=== PATIENT | female | born 1940 | race Caucasian/White ===

== ENCOUNTER 2016-04-16 18:52 | Inpatient (IN) ==
[2016-04-16] MEDS ORDERED: Acetaminophen 325 MG TABLET PO PRN (20:41)
[2016-04-16] MEDS ORDERED: *HR* HYDROcodone/Acet 5/325 mg TABLET PO PRN (20:41)
[2016-04-16] MEDS ORDERED: *HR* Morphine 2 MG/ML SYRINGE IVP PRN (20:41)
[2016-04-16] MEDS ORDERED: Ondansetron 4 MG/2 ML VIAL IVP PRN (20:41)
[2016-04-16] MEDS ORDERED: Naloxone 0.4 MG/ML INJ IVP PRN (20:41)
[2016-04-16] MEDS ORDERED: D5% in Water 1,000 ML IV PRN (20:42)
[2016-04-16] MEDS ORDERED: Dextrose Gel 15 GM PO PRN ×2 (20:42)
[2016-04-16] MEDS ORDERED: *HR* Dextrose 50 % in Water (Syg) 50 ML SYRINGE IVP PRN (20:42)
[2016-04-16] MEDS ORDERED: Ipratropium/Albuterol Neb 3 ML IH PRN (20:46)
[2016-04-16] MEDS: Insulin LISPRO 300 UNITS/3 ML VIAL SQ SCH (20:56)
[2016-04-16 21:52] LABS: Basophils # 0.1 K/mcL (0.0-0.2); Basophils % 0.9 %; Eosinophils # 0.1 K/mcL (0.0-0.6); Eosinophils % 1.2 %; Hematocrit 40.6 % (35.3-44.9); Hemoglobin 13.2 g/dL (11.5-15.4); Immature Granulocytes % 1.5 % (0-4); Lymphocytes # 1.8 K/mcL (0.6-4.6); Lymphocytes % 17.9 %; Mean Corpuscular HGB Conc 32.5 g/dL (31.6-35.5); Mean Corpuscular Hemoglobin 28.7 pg (28.0-33.3); Mean Corpuscular Volume 88.3 fL (83.0-100.0); Mean Platelet Volume 9.9 fL (9.4-12.4); Monocytes # 0.8 K/mcL (0.0-1.3); Monocytes % 8.6 %; Neutrophils # 6.8 K/mcL (1.6-8.9); Platelet Count 234 K/mcL (140-400); Red Cell Distribution Width 16.6 % (11.5-14.5); Segmented Neutrophils % 69.9 %
--- NOTE | 2016-04-16 21:54 | Internal Med History&Physical ---
Date of Encounter: 04/16/16 Time of Encounter: 21:52 Assessment and Plan (1) Bradycardia Current visit: Yes Status: Acute (2) Diastolic CHF, acute on chronic Current visit: Yes Status: Acute (3) Elevated INR Current visit: No Status: Acute (4) Chronic kidney disease, stage 3 Current visit: Yes Status: Chronic (5) Atrial fibrillation Current visit: Yes Status: Chronic Qualifiers: Atrial fibrillation type: chronic Qualified Code(s): I48.2 - Chronic atrial fibrillation (6) Chronic obstructive pulmonary disease Current visit: Yes Status: Chronic Qualifiers: COPD type: unspecified COPD Qualified Code(s): J44.9 - Chronic obstructive pulmonary disease, unspecified (7) Coronary artery disease Current visit: Yes Status: Chronic Qualifiers: Coronary Disease-Associated Artery/Lesion type: [place] artery [place] vs. transplanted heart: [place] heart Associated angina: without angina Qualified Code(s): I25.10 - Atherosclerotic heart disease of [place] coronary artery without angina pectoris (8) Diabetes mellitus Current visit: Yes Status: Chronic Qualifiers: Diabetes mellitus type: type 2 Diabetes mellitus complication status: with unspecified complications Diabetes mellitus intermediate project manager insulin use: without intermediate project manager use Qualified Code(s): E11.8 - Type 2 diabetes mellitus with unspecified complications (9) Dyslipidemia Current visit: Yes Status: Chronic (10) Hypertension Current visit: Yes Status: Chronic Qualifiers: Hypertension type: essential hypertension Qualified Code(s): I10 - Essential (primary) hypertension (11) Hypothyroidism Current visit: Yes Status: Chronic Qualifiers: Hypothyroidism type: unspecified Qualified Code(s): E03.9 - Hypothyroidism , unspecified (12) Thoracic aortic aneurysm without rupture Current visit: Yes Status: Chronic Internal Medicine - H&P: HPI Chief complaint: Shortness of breath Admitted From: Hospital to Hospital Transfer Plans for Post Hospital Care: Home History of present illness: 75 Y/O F with known A-fib on Coumadin, CKD, COPD, DM, Diastolic CHF Presented to [facility] with complains of shortness of breath. She was found to have bradycardia with HR 30s and anasarca. Per referral center, patient had been started on new medications for A-fib recently, and had been taken off her Lasix. EKG showed Junctional rhythm with RBBB, CXR showed bilateral pleural effusions. Work up revealed BNP 2,134, PT 23.6, INR 3.60, and WBC 10.9. Troponins negative X2. BP was 153/48, O2Sat was 99%, and she was afebrile. She was given atropine with improvement in HR to 50s; she was then transferred here for further management. She is seen at bedside, she endorses she started having bilateral lower extremity swelling since 04/07 when her Lasix was discontinued by her social service liaison. She reports associated bloating , early satiety, orthopnea, she also has been feeling more weak. She went to her PCP who found her bradycardic and referred her to the ER. She denies chest pain, nausea or vomiting, she is chronically incontinent of urine , and has no new symptoms. She received two doses of atropine at [facility] with improvement in her HR from 38 to 50s, and she also received a dose of Lasix. Her presenting BP over there was 133/48. Physical Exam: VSS. HR 65, BP-144/67, O2sat 95% on 2L Not in any form of distress, speaks full sentences HEENT: No JVD Chest: Bilateral basilar crackles, no wheezing, no tachypnea Heart: S1, S2, loud systolic murmur, no gallops Abdomen: Obese, not tender, normal bowel sounds Extremities: Bilateral 2+ pitting pedal edema up to the knees Labs and Imaging as earlier documented Assessment/Plan 1. Bradycardia from possible CCB and BB toxicity, now improved. Keep on telemetry, keep SQ pacer pads on. Hold off BB or CCB unless Afib with RVR. Consult cardio for evaluation fr possible tachy-justice syndrome. Obtain CXR, chemistry, TSH, LFT, CBC. 2. Fluid overload: Possibly from both CHF and CKD 3, obtain ECHO, resume Lasix, strict intake/output monitoring, Daily weight checks. Obtain ECHO 3. Supratherapeutic INR: Hold Coumadin monitor INR CKD 3, DM, COPD not in exacerbation are stable. Resume other home meds, insulin , duonebs prn respectively. Plan of care discussed with patient , verbalizes understanding. Past Med Surg Social Fam HX - Past Medical History Medical history: aortic aneurysm, CHF, COPD, diabetes, GERD, hypertension, renal disease Psychiatric history: no psych history - Past Surgical History Surgical History: angioplasty/stent, coronary bypass (CABG) - Social History Smoking Status: Former smoker Smokeless Tobacco Status: No Alcohol use: none Drug use: none - Family History Mother Living Status: Hx Family Cardiac Disorders: No Hx Family Respiratory Disorders: No Hx Family Cancer: No Hx Family GI Disorders: No Hx Family Endocrine Disorder: No Hx Family Neuromuscular Disorders: No Hx Family Neurologic Disorders: No Hx Family HEENT Disorders: No Hx Family Autoimmune Disorders: No Sister Hx Family Cardiac Disorders: Yes ([place]) Internal Medicine - H&P: Meds Atorvastatin [Lipitor] 40 mg PO HS 05/03/15 [History] Magnesium Oxide [Magnesium] 400 mg PO QAM 05/03/15 [History] Potassium Chloride [K-Tab ER] 10 meq PO QAM 05/03/15 [History] Aspirin 81 mg PO QAM 07/06/15 [History] Carvedilol [Coreg] 25 mg PO BID 07/06/15 [History] Insulin ASPART [Novolog Flexpen] 5 - 15 unit SQ TIDWM 07/06/15 [History] Warfarin [Coumadin] 5 mg PO SUMOTUWEFR 07/06/15 [History] Warfarin [Coumadin] 2.5 mg PO THSA 08/24/15 [History] Ferrous Sulfate 325 mg PO BIDWM #30 tablet 09/01/15 [Rx] Levothyroxine [Levothyroxine Sodium] 150 mcg PO DAILY@0630 10/05/15 [History] Diltiazem CD (24hr) [Cardizem CD] 360 mg PO QAM #90 cap.er.24h 10/10/15 [Rx] Amlodipine [Norvasc] 5 mg PO DAILY 04/16/16 [History] Calcitriol [Rocaltrol] 0.25 mcg PO DAILY 04/16/16 [History] Allergies nitroglycerin Adverse Reaction (Verified 12/09/15 15:44) See Comments pt reports the nitro drip makes her vomit. Pt reports the SL nitro is ok to take All Systems PM: A 10-system review of systems was performed and is negative for pertinent findings except as documented above in the HPI. - Constitutional Constitutional: no chills, no fever(s), no night sweats - EENT Eyes: no change in vision, no discharge, no pain, no photophobia Nose, mouth and throat: no dysphagia, no nasal discharge, no neck pain, no sore throat - Cardiovascular Cardiovascular ROS IM: as per HPI - Respiratory Respiratory: as per HPI - Gastrointestinal Gastrointestinal: as per HPI - Genitourinary Genitourinary: as per HPI - Musculoskeletal Musculoskeletal ROS IM: no numbness, no tingling - Integumentary Integumentary IM: no rash, no unusual bruising - Neurological Neurological ROS: no confusion, no convulsions, no focal weakness, no numbness, no tingling, no tremor(s) - Hematologic/Lymphatic Hematologic/Lymphatic: no easy bruising - Constitutional Vitals: Temp Pulse Resp BP Pulse Ox 97.9 F 65 20 144/67 94 L 04/16/16 20:40 04/16/16 20:40 04/16/16 20:40 04/16/16 20:40 04/16/16 20:40
[2016-04-16] MEDS ORDERED: Furosemide 40 MG/4 ML VIAL IVP ONE (21:58)
[2016-04-16 22:04] LABS: Calcium 9.8 mg/dL (8.6-10.8); Potassium 4.2 mEq/L (3.5-4.5)
[2016-04-16 22:13] LABS: Hemoglobin A1C 7.2 %
[2016-04-16 22:27] LABS: Thyroid Stimulating Hormone 18.399 mcIU/mL (0.350-4.840)
[2016-04-16 23:03] LABS: Bilirubin,Urine Negative (Negative); Blood,Urine Negative (Negative); Clarity,Urine Clear (Clear); Color,Urine Yellow (Yellow); Glucose,Urine (UA) Normal (Normal); Ketones,Urine Negative (Negative); Leukocyte Esterase,Urine Negative (Negative); Nitrite,Urine Negative (Negative); Protein,Urine Negative (Neg-Trace); Specific Gravity,Urine 1.006 (1.010-1.025); Urobilinogen,Urine Normal (Normal)
[2016-04-17 04:39] LABS: Basophils # 0.1 K/mcL (0.0-0.2); Eosinophils # 0.1 K/mcL (0.0-0.6); Eosinophils % 1.5 %; Hematocrit 40.1 % (35.3-44.9); Hemoglobin 13.2 g/dL (11.5-15.4); Immature Granulocytes % 1.4 % (0-4); Lymphocytes # 1.6 K/mcL (0.6-4.6); Lymphocytes % 21.7 %; Mean Corpuscular HGB Conc 32.9 g/dL (31.6-35.5); Mean Corpuscular Hemoglobin 29.1 pg (28.0-33.3); Mean Corpuscular Volume 88.3 fL (83.0-100.0); Mean Platelet Volume 9.9 fL (9.4-12.4); Monocytes # 0.7 K/mcL (0.0-1.3); Monocytes % 9.1 %; Neutrophils # 4.7 K/mcL (1.6-8.9); Platelet Count 202 K/mcL (140-400); Red Blood Count 4.54 M/mcL (3.82-4.97); Red Cell Distribution Width 16.6 % (11.5-14.5); Segmented Neutrophils % 65.3 %
[2016-04-17 04:43] LABS: INR 3.2; Prothrombin Time 35.8 Seconds (9.4-12.1)
[2016-04-17 04:57] LABS: Albumin 3.3 g/dL (3.5-5.0); Albumin/Globulin Ratio 1.1 (1.1-2.2); Bilirubin,Total 0.6 mg/dL (0.2-1.2); Calcium 9.6 mg/dL (8.6-10.8); Globulin 2.9 g/dL (2.4-3.5); Potassium 4.2 mEq/L (3.5-4.5); Total Protein 6.2 g/dL (6.0-8.3)
[2016-04-17] MEDS: Insulin LISPRO 300 UNITS/3 ML VIAL SQ SCH ×7 (07:44→21:05)
[2016-04-17] MEDS: Aspirin 81 MG TAB.CHEW PO SCH (07:44)
[2016-04-17] MEDS: Furosemide 40 MG/4 ML VIAL IVP SCH (07:48)
--- NOTE | 2016-04-17 09:39 | Cardiology Consult Note ---
Date of Encounter: 04/17/16 Time of Encounter: 08:30 Assessment and Plan (1) Bradycardia Current Visit: Yes Status: Acute HR 34 appears to be junctional rhythm at [facility] ED. Patient was asymptomatic at time--denies presyncope/syncopal symptoms. HR has significantly improved with holding AV twila blocking agents--previously on Cardizem 360 mg and Coreg 25 mg BID. Telemetry reviewed since admission: avg HR=64 SR. Min=51 SB. No significant pause. HR 70s SR upon exam. No indication for PPM at this time. TSH 18--defer management to primary care service. (2) Diastolic CHF, acute on chronic Current Visit: Yes Status: Acute Acute on chronic dCHF secondary to discontinuation of diuretics and ONEL on CKD. Nearly 20lb weight gain in the past 10 days. SCr improving with diuresis, not yet at baseline. CXR shows mild congestion. Reports significant symptom improvement since admission; nearly euvolemic upon exam. 24 I&O: -3210 mL, cumulative -4360 mL. Recommend transition to oral dose of lasix upon discharge with close monitoring of renal function as outpatient. Low sodium diet, strict I&O's, and daily weights. (3) Atrial fibrillation Current Visit: Yes Status: Chronic Hx of PAF; previously rate controlled on max doses oral calcium channel chichi and betablocker. Anticoagulated on Coumadin; follows at [facility]. AV twila blocking agents held in light of bradycardia (HR 34) at [facility]. May need to start at lower dose to prevent tachycardia. Continue to monitor for now. Qualifiers: Atrial fibrillation type: paroxysmal Qualified Code(s): I48.0 - Paroxysmal atrial fibrillation (4) Chronic kidney disease, stage 3 Current Visit: Yes Status: Chronic Scr improving, not yet at baseline. Continue to monitor closely. Avoid ACEi/ARB. (5) Coronary artery disease Current Visit: Yes Status: Chronic Hx of CAD s/p 2vCABG. Denies chest pain or discomfort. Asa and statin. May consider re-starting betablocker at decreased dose. EF preserved per TTE September 2015. Negative nuclear stress September 2014. Qualifiers: Coronary Disease-Associated Artery/Lesion type: [place] artery [place] vs. transplanted heart: [place] heart Associated angina: without angina Qualified Code(s): I25.10 - Atherosclerotic heart disease of [place] coronary artery without angina pectoris Discussion w patient/family: The assessment and plan as outlined above was discussed with the patient and/or family members who expressed understanding and agreement. All questions were answered. Thank you for involving us in the care of your patient. Please call with any questions. The patient will be discussed and reviewed with Dr. Acharya; changes to be made accordingly. History of Present Illness Consult date: 04/17/16 Requesting physician: Preston Pace Consult reason: Bradycardia Chief complaint: Shortness of breath, weight gain History of present illness: Ms. Smith is a 75 year old female with PMH significant for CAD s/p 2vCABG in 1993, PAF (coumadin), AAA, DMII, CKD, HTN, COPD, dCHF who presented to [facility] ED with complaints of worsening abdominal/BLE swelling and dyspnea for the past week. She reports her Nephologist (outside hospital) recently stopped a blood pressure pill, metformin, and torsemide due to worsening renal insufficiency; two days after stopping medications, swelling started. She reports close to 20 lb weight gain. Upon arrival to [facility] ED ECG demonstrated a HR of 34--she was then transferred to [facility] for further evaluation. She denies chest pain or discomfort, syncope, palpitations, or headache. Reports stable, unchanged dizziness with abrupt position change. Cardiology consulted today for Bradycardia. Recent testing includes: TTE 10/06/15: EF 55%, mild concentric LVH, mild AR/MR/TR, borderline mild PH. TTE 05/04/15: EF 55%, mild AR, mild-moderately dilated left atrium. Regadenoson nuclear stress September 2014: negative for ischemia or infarct, gated EF >70% Past Med Surg Social Fam HX - Past Medical History Medical history: aortic aneurysm, atrial fibrillation, CHF (chronic, diastolic) , COPD, coronary artery disease, diabetes, GERD, hyperlipidemia, hypertension, renal disease Psychiatric history: no psych history - Past Surgical History Surgical History: angioplasty/stent, coronary bypass (CABG) - Social History Smoking Status: Former smoker Smokeless Tobacco Status: No Alcohol use: none Drug use: none - Family History Mother Living Status: Hx Family Cardiac Disorders: No Hx Family Respiratory Disorders: No Hx Family Cancer: No Hx Family GI Disorders: No Hx Family Endocrine Disorder: No Hx Family Neuromuscular Disorders: No Hx Family Neurologic Disorders: No Hx Family HEENT Disorders: No Hx Family Autoimmune Disorders: No Sister Hx Family Cardiac Disorders: Yes ([place]) Medications and Allergies Atorvastatin [Lipitor] 40 mg PO HS 05/03/15 [History] Magnesium Oxide [Magnesium] 400 mg PO QAM 05/03/15 [History] Potassium Chloride [K-Tab ER] 10 meq PO QAM 05/03/15 [History] Aspirin 81 mg PO QAM 07/06/15 [History] Carvedilol [Coreg] 25 mg PO BID 07/06/15 [History] Insulin ASPART [Novolog Flexpen] 5 - 15 unit SQ TIDWM 07/06/15 [History] Warfarin [Coumadin] 2.5 mg PO DAILY 08/24/15 [History] Levothyroxine [Levothyroxine Sodium] 150 mcg PO DAILY 10/05/15 [History] Diltiazem CD (24hr) [Cardizem CD] 360 mg PO QAM #90 cap.er.24h 10/10/15 [Rx] Amlodipine [Norvasc] 5 mg PO BID 04/16/16 [History] Calcitriol [Rocaltrol] 0.25 mcg PO MOWEFR 04/16/16 [History] Cholecalciferol (D-3) [Vitamin D] 2,000 unit PO DAILY 04/16/16 [History] Ferrous Sulfate [Iron] 325 mg PO BID 04/16/16 [History] Insulin DETEMIR [Levemir Flextouch] 30 unit SQ HS 04/16/16 [History] Allergies nitroglycerin Adverse Reaction (Verified 04/16/16 23:56) Nausea All Systems Review: A 10-system review of systems was performed and is negative for pertinent findings except as documented above in the HPI. - Cardiovascular Cardiovascular: as per HPI Physical Examination Vital Signs, Last 4 Hours Temp Pulse Resp BP Pulse Ox 04/17/16 07:49 77 04/17/16 07:21 98.6 F 69 18 127/61 95 General: Conversant HEENT: Atraumatic, Normocephaly Cardiac: Reg Rate and Rhythm, Normal S1 and S2 Lungs: Normal Breath Sounds Neuro: Alert and responsive Abdomen: Soft (mildly distended) Skin: No rashes noted on visualized skin Musculoskeletal: No Chest Wall Tenderness Extremities: Normal Pulses, Other (mild, trace edema BLE) Other: naik cath--clear yellow urine Results 04/17/16 04:26 04/17/16 04:26 Lab Results 04/16/16 04/16/16 04/16/16 21:36 21:36 21:36 WBC 9.8 Hgb 13.2 Hct 40.6 Plt Count 234 INR APTT Sodium Potassium Chloride Carbon Dioxide BUN Creatinine Glucose Calcium Total Bilirubin AST ALT Alkaline Phosphatase Troponin I 0.02 B-Natriuretic Peptide 1827 H TSH 04/16/16 04/17/16 04/17/16 21:36 04:26 04:26 WBC 7.2 Hgb 13.2 Hct 40.1 Plt Count 202 INR 3.2 APTT 44.0 H Sodium 140 Potassium 4.2 Chloride 104 Carbon Dioxide 25 BUN 44 H Creatinine 1.87 H Glucose 140 H Calcium 9.8 Total Bilirubin AST ALT Alkaline Phosphatase Troponin I B-Natriuretic Peptide TSH 18.399 H 04/17/16 04:26 WBC Hgb Hct Plt Count INR APTT Sodium 141 Potassium 4.2 Chloride 103 Carbon Dioxide 29 BUN 41 H Creatinine 1.70 H Glucose 99 Calcium 9.6 Total Bilirubin 0.6 AST 55 H ALT 89 H Alkaline Phosphatase 124 Troponin I B-Natriuretic Peptide TSH Active Medications Acetaminophen (Tylenol) 650 mg PO Q6HR PRN PRN Reason: Mild Pain (1-3) Stop: 10/16/16 20:42 Acetaminophen/Hydrocodone Bitart ([employer] 5-325 Mg) 1 tab PO Q4HR PRN PRN Reason: Moderate Pain (4-6) Stop: 10/16/16 20:42 Albuterol/Ipratropium (Duoneb) 3 ml IH [id number] PRN; Protocol PRN Reason: Shortness Of Breath/Wheezing Stop: 10/16/16 20:47 Aspirin (Aspirin) 81 mg PO QAM [facility] Stop: 10/17/16 09:01 Last Admin: 04/17/16 07:44 Dose: 81 mg Atorvastatin Calcium (Lipitor) 40 mg PO HS [facility] Stop: 10/17/16 21:01 Calcitriol (Rocaltrol) 0.25 mcg PO DAILY [facility] Stop: 10/17/16 09:01 Last Admin: 04/17/16 07:44 Dose: 0.25 mcg Dextrose/Water (Dextrose 50% (Syg)) 25 ml IVP AD PRN PRN Reason: Hypoglycemia Stop: 10/16/16 20:43 Ferrous Sulfate (Ferrous Sulfate) 325 mg PO BIDWM [facility] Stop: 10/17/16 08:01 Last Admin: 04/17/16 07:44 Dose: 325 mg Furosemide (Lasix) 40 mg IVP DAILY [facility] Stop: 10/17/16 09:01 Last Admin: 04/17/16 07:48 Dose: 40 mg Dextrose (Dextrose 5%) 1,000 mls @ 100 mls/hr IV CONT PRN PRN Reason: HYPOGLYCEMIA Stop: 10/16/16 20:43 Insulin Detemir (Levemir) 12 unit 0.15 unit/kg (12 unit) SQ HS [facility] Stop: 10/17/16 21:01 Insulin Human Lispro (Humalog) 0 units SQ HS MARCELO PRN Reason: Protocol Stop: 10/16/16 21:01 Last Admin: 04/16/16 20:56 Dose: Not Given Insulin Human Lispro (Humalog) 0 units SQ TIDAC MARCELO PRN Reason: Protocol Stop: 10/17/16 07:31 Last Admin: 04/17/16 07:44 Dose: Not Given Insulin Human Lispro (Humalog) 4 units 0.05 units/kg (4 units) SQ TIDWM [facility] Stop: 10/17/16 08:01 Last Admin: 04/17/16 07:45 Dose: Not Given Levothyroxine Sodium (Synthroid) 150 mcg PO DAILY@0630 [facility] Stop: 10/17/16 06:31 Last Admin: 04/17/16 05:59 Dose: 150 mcg Morphine Sulfate (Morphine Sulfate) 2 mg IVP Q4HR PRN PRN Reason: Severe Pain (7-10) Stop: 10/16/16 20:42 Naloxone HCl (Narcan) 0.4 mg IVP Q2MIN PRN PRN Reason: Opioid Reversal Stop: 10/16/16 20:42 Ondansetron HCl (Zofran) 4 mg IVP Q8HR PRN PRN Reason: Nausea And Vomiting Stop: 10/16/16 20:42 Potassium Chloride (Potassium Chloride) 10 meq PO QAM [facility] Stop: 10/17/16 09:01 Last Admin: 04/17/16 07:44 Dose: 10 meq Impressions Chest X-Ray 04/16/16 20:39 IMPRESSION: Mild pulmonary edema with no appreciable pleural effusion. D/ / Selvin Arteaga MD / Selvin Arteaga MD Interpreting Provider: Selvin Arteaga MD - Imaging and Cardiology Stress Test: report reviewed Echo: report reviewed Other Results: Telemetry: avg HR=64 SR. Min-51 SB. No significant pause. - EKG Interpretation EKG results cardiology: personally reviewed Consult Discharge Plan - Plan Referrals: Blaire Olivo CNP [Primary Care Provider] -
--- NOTE | 2016-04-17 12:40 | ECHO - Doppler Report ---
Echocardiogram Name: Alejandra Pazetter Date of Study: 04/17/2016 Date: 1940 Ht: 60.0 in Medical Record#: [id number] Age: 75 Wt: 180.0 lb Gender: Female BSA: 1.78 Order #: [id number] [facility] Room #: Reading Physician: Brannon Acharya DO, [place], [place] Digital [employer] Specialist: Dajuan Hardwick RDCS Ordering Physician: Preston Pace MD Primary Physician: None Indications: Shortness of breath, Anasarca Impressions: LVEF 60-65%. Normal LV chamber size and function. Mild concentric left ventricular hypertrophy. Moderate left ventricular diastolic dysfunction. Normal right ventricular structure and function. Moderately dilated left atrium. Mild-moderate aortic stenosis. Mean gradient 20 mmHg. No evidence of pulmonary hypertension. The aortic root is mildly dilated. Left Ventricular Wall Motion: Rest Echo Findings All wall segments showed normal motion. Findings: Study Quality * Technically adequate exam. ECG Findings * Normal sinus rhythm. Left Ventricle * LVEF 60-65%. * Normal LV chamber size and function. * Mild concentric left ventricular hypertrophy. * Moderate left ventricular diastolic dysfunction. Right Ventricle * Normal right ventricular structure and function. Left Atrium * Moderately dilated left atrium. Right Atrium * Mildly dilated right atrium. Interatrial Septum * No evidence of PFO by color Doppler. Aortic Valve * Aortic valve not well visualized. * Moderately calcified aortic valve leaflets. * Mild aortic regurgitation. * Mild-moderate aortic stenosis. Mean gradient 20 mmHg. Mitral Valve * Mildly thickened mitral valve leaflets. * Mild mitral annular calcification * Trace mitral regurgitation. * No mitral stenosis. Tricuspid Valve * Normal tricuspid valve structure and function. * Trace tricuspid regurgitation. * No evidence of pulmonary hypertension. Pulmonic Valve * Normal pulmonic valve structure and function. * No pulmonic regurgitation. Aorta * The aortic root is mildly dilated. Pericardium * The pericardium appears normal. IVC * Normal IVC dimensions and inspiratory collapse. Pulmonary Artery * Normal visualized portions of the main pulmonary artery. History Hypertension Diabetes Hypercholesteremia Family History of CAD History of CAD/PTCA Myocardial Infarction Coronary Artery Bypass Graft 09/26/15 a Previous Echo was performed. Measurements: BP: 125/ 57 2D Normal Values RVIDd: 3.30 cm <2.7 cm IVSd: 1.30 cm 0.6 - 1.0 cm LVIDd: 4.00 cm 3.7 - 5.6 cm LVPWd: 1.30 cm 0.6 - 1.1 cm LVIDs: 2.60 cm 1.5 - 3.6 cm AO: 4.08 cm < 4.0 cm LA: 3.40 cm 2.0 - 4.0cm %FS: 35.00 cm >25 % LVOT Diam: 2.00 cm LA volume: 73 Mitral Valve Peak Velocity 1.37 m/sec Mean Velocity:.75 m/sec Peak Grad:8.00 mmHg Mean Grad:3.00 mmHg Valve Area:3.20 cm2 Peak E:1.38 m/sec Peak A:.99 m/sec E/A Ratio:1.4 Peak E' Lat Damon:8.58 cm/s Peak E' Med Damon:4.39 cm/s E/E' Lat Ratio:16.1 E/E' Med Ratio:31.4 LVOT Peak Damon:1.44 m/sec Mean Damon:1.05 m/sec Peak Grad:8.00 mmHg Mean Grad:5.00 mmHg Aortic Valve Peak Damon:2.97 m/sec Mean Damon:2.09 m/sec Peak Grad:35.00 mmHg Mean Grad:20.00 mmHg Valve Area:1.60 cm2 AI pressure Half-time: 443.00 msec Tricuspid Valve TV Regurg Peak Grad: 9.00mmHg TV Regurg Peak Daomn: 1.51m/sec Updated by Brannon Acharya DO, [place], [place] on 04/17/2016 12:35:30 PM electronically signed on 04/17/2016 12:35:45 PM with status of Final Wall Motion Brown: 1=Normal, 2=Hypokinesis, 3=Akinesis, 4=Dyskinesis, 5=Aneurysmal, 6=Hyperkinetic, X=Not Visualized (Blank)=Missing
--- NOTE | 2016-04-17 15:08 | Internal Med Progress Note ---
Date of Encounter: 04/17/16 Time of Encounter: 15:08 - Assessment and plan (1) Bradycardia Current Visit: Yes Status: Acute Assessment and plan: Improved after beta chichi and calcium channel blockers have been stopped. Cardiology consulted. At this time recommend monitoring. Continue telemetry. (2) Diastolic CHF, acute on chronic Current Visit: Yes Status: Acute Assessment and plan: Improved. Continue Lasix. (3) Atrial fibrillation Current Visit: Yes Status: Chronic Assessment and plan: Diet controlled. Currently rate controlled and medications have been held due to bradycardia. Continue telemetry monitoring. On Coumadin for anticoagulation. INR supratherapeutic at 3.2. Qualifiers: Atrial fibrillation type: paroxysmal Qualified Code(s): I48.0 - Paroxysmal atrial fibrillation (4) Chronic kidney disease, stage 3 Current Visit: Yes Status: Chronic Assessment and plan: At baseline. We will continue to monitor renal function especially as patient is receiving Lasix intravenously. (5) Chronic obstructive pulmonary disease Current Visit: Yes Status: Chronic Assessment and plan: Not in acute exacerbation Qualifiers: COPD type: unspecified COPD Qualified Code(s): J44.9 - Chronic obstructive pulmonary disease, unspecified (6) Diabetes mellitus Current Visit: Yes Status: Chronic Assessment and plan: Well-controlled. 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 Qualifiers: Hypertension type: essential hypertension Qualified Code(s): I10 - Essential (primary) hypertension (8) Hypothyroidism Current Visit: Yes Status: Chronic Assessment and plan: Uncontrolled. TSH 18. Could be contributing to bradycardia. Will increase dosage of levothyroxine to 175 g by mouth daily. Qualifiers: Hypothyroidism type: unspecified Qualified Code(s): E03.9 - Hypothyroidism , unspecified - Subjective Interval history: Patient is feeling better today. Denies any dizziness or lightheadedness. No chest pain. No shortness of breath. No nausea or vomiting. - Constitutional Vitals: Temp Pulse Resp BP Pulse Ox 98.8 F 70 18 117/69 93 L 04/17/16 11:23 04/17/16 11:23 04/17/16 11:23 04/17/16 11:23 04/17/16 11:23 General appearance: Present: cooperative, mild distress, A&O X 3, answers questions appropriately - Respiratory Respiratory exam: Present: CTAB. Absent: accessory muscle use, rales, rhonchi, wheezes - Cardiovascular Cardiovascular exam: Present: RRR, +S1, +S2. Absent: diastolic murmur, gallop, rubs, systolic murmur - GI/Abdominal GI/Abdominal exam: Present: normal bowel sounds, soft, no peritoneal signs. Absent: distended, tenderness - Extremities Exam Extremities exam: Present: warm, radial pulses palpable and symetrical. Absent : calf tenderness, cyanotic, pedal edema - Neurological Exam Neurological exam: Present: oriented X3, no focal deficits. Absent: facial droop, speech deficit Internal Medicine: Result - Labs CBC & Chem 7: 04/17/16 04:26 04/17/16 04:26 Labs: Short CBC 04/16/16 04/17/16 Range/Units 21:36 04:26 WBC 9.8 7.2 (4.3-11.1) K/mcL Hgb 13.2 13.2 (11.5-15.4) g/dL Hct 40.6 40.1 (35.3-44.9) % Plt Count 234 202 (140-400) K/mcL Neutrophils # 6.8 4.7 (1.6-8.9) K/mcL BMP 04/16/16 04/17/16 21:36 04:26 Sodium 140 141 Potassium 4.2 4.2 Chloride 104 103 Carbon Dioxide 25 29 BUN 44 H 41 H Creatinine 1.87 H 1.70 H Glucose 140 H 99 Calcium 9.8 9.6 Cardiac Enzymes 04/16/16 Range/Units 21:36 Troponin I 0.02 (0-0.03) ng/mL Liver Function 04/17/16 Range/Units 04:26 Total Bilirubin 0.6 (0.2-1.2) mg/dL AST 55 H (5-34) Units/L ALT 89 H (0-55) Units/L Alkaline Phosphatase 124 (38-126) Units/L Albumin 3.3 L (3.5-5.0) g/dL Urine 04/16/16 Range/Units 22:50 Urine Color Yellow (Yellow) Urine Clarity Clear (Clear) Urine pH 6.0 (5.0-8.0) pH Units Ur Specific [place] 1.006 L (1.010-1.025) Urine Protein Negative (Neg-Trace) mg/dL Urine Glucose (UA) Normal (Normal) mg/dL - ABG Interpretation ABG results: PT/INR, D-dimer PT 35.8 Seconds (9.4-12.1) H 04/17/16 04:26 - Impressions Impressions Chest X-Ray 04/16/16 20:39 IMPRESSION: Mild pulmonary edema with no appreciable pleural effusion. D/ / Selvin Arteaga MD / Selvin Arteaga MD Interpreting Provider: Selvin Arteaga MD Consult Discharge Plan - Plan Referrals: Blaire Olivo, [facility] [employer] [facility] [Primary Care Provider] - - Attending Attestation This document has been at least partially created by Vigo recognition technology by Dr. Escobar. Errors in grammar, wording or other phrases may exist. If errors are found after the documentation is signed, they will be addressed individually in the addendum section of this document when appropriate. Medical Decision Making - MDM Narrative Medical decision making narrative: Moderate risk for complications - Lab Data Lab results reviewed: Yes I reviewed the patient's lab results. Result diagrams: 04/17/16 04:26 04/17/16 04:26 Lab Results 04/16/16 04/16/16 04/16/16 Range/Units 20:43 21:36 21:36 WBC 9.8 (4.3-11.1) K/mcL RBC 4.60 (3.82-4.97) M/mcL Hgb 13.2 (11.5-15.4) g/dL Hct 40.6 (35.3-44.9) % MCV 88.3 (83.0-100.0) fL MCH 28.7 (28.0-33.3) pg MCHC 32.5 (31.6-35.5) g/dL RDW 16.6 H (11.5-14.5) % Plt Count 234 (140-400) K/mcL MPV 9.9 (9.4-12.4) fL Immature Gran % 1.5 (0-4) % Seg Neutrophils % 69.9 % Lymphocytes % 17.9 % Monocytes % 8.6 % Eosinophils % 1.2 % Basophils % 0.9 % Neutrophils # 6.8 (1.6-8.9) K/mcL Lymphocytes # 1.8 (0.6-4.6) K/mcL Monocytes # 0.8 (0.0-1.3) K/mcL Eosinophils # 0.1 (0.0-0.6) K/mcL Basophils # 0.1 (0.0-0.2) K/mcL PT (9.4-12.1) Seconds INR APTT (26.0-36.0) Seconds Sodium (136-145) mEq/L Potassium (3.5-4.5) mEq/L Chloride (98-109) mEq/L Carbon Dioxide (19-29) mEq/L BUN (7-20) mg/dL Creatinine (0.57-1.11) mg/dL Est GFR ( Amer) (> 60) Est GFR (Non-Af Amer) (> 60) BUN/Creatinine Ratio (6-26) Glucose (70-99) mg/dL POC Glucose 168 H (58-89) Est Mean Plasma Glucose mg/dl Hemoglobin A1c ( - 5.6) % Calculated Osmolality (280-300) Calcium (8.6-10.8) mg/dL Total Bilirubin (0.2-1.2) mg/dL AST (5-34) Units/L ALT (0-55) Units/L Alkaline Phosphatase (38-126) Units/L Troponin I 0.02 (0-0.03) ng/mL B-Natriuretic Peptide (0-100) pg/mL Serum Total Protein (6.0-8.3) g/dL Albumin (3.5-5.0) g/dL Globulin (2.4-3.5) g/dL Albumin/Globulin Ratio (1.1-2.2) TSH (0.350-4.840) mcIU/mL Free T4 (0.70-1.48) ng/dl Urine Color (Yellow) Urine Clarity (Clear) Urine pH (5.0-8.0) pH Units Ur Specific [place] (1.010-1.025) Urine Protein (Neg-Trace) mg/dL Urine Glucose (UA) (Normal) mg/dL Urine Ketones (Negative) mg/dL Urine Blood (Negative) Urine Nitrite (Negative) Urine Bilirubin (Negative) Urine Urobilinogen (Normal) mg/dL Ur Leukocyte Esterase (Negative) 04/16/16 04/16/16 04/16/16 Range/Units 21:36 21:36 21:36 WBC (4.3-11.1) K/mcL RBC (3.82-4.97) M/mcL Hgb (11.5-15.4) g/dL Hct (35.3-44.9) % MCV (83.0-100.0) fL MCH (28.0-33.3) pg MCHC (31.6-35.5) g/dL RDW (11.5-14.5) % Plt Count (140-400) K/mcL MPV (9.4-12.4) fL Immature Gran % (0-4) % Seg Neutrophils % % Lymphocytes % % Monocytes % % Eosinophils % % Basophils % % Neutrophils # (1.6-8.9) K/mcL Lymphocytes # (0.6-4.6) K/mcL Monocytes # (0.0-1.3) K/mcL Eosinophils # (0.0-0.6) K/mcL Basophils # (0.0-0.2) K/mcL PT (9.4-12.1) Seconds INR APTT (26.0-36.0) Seconds Sodium 140 (136-145) mEq/L Potassium 4.2 (3.5-4.5) mEq/L Chloride 104 (98-109) mEq/L Carbon Dioxide 25 (19-29) mEq/L BUN 44 H (7-20) mg/dL Creatinine 1.87 H (0.57-1.11) mg/dL Est GFR ( Amer) 32 L (> 60) Est GFR (Non-Af Amer) 26 L (> 60) BUN/Creatinine Ratio 24 (6-26) Glucose 140 H (70-99) mg/dL POC Glucose (58-89) Est Mean Plasma Glucose 160 mg/dl Hemoglobin A1c 7.2 H ( - 5.6) % Calculated Osmolality 303 H (280-300) Calcium 9.8 (8.6-10.8) mg/dL Total Bilirubin (0.2-1.2) mg/dL AST (5-34) Units/L ALT (0-55) Units/L Alkaline Phosphatase (38-126) Units/L Troponin I (0-0.03) ng/mL B-Natriuretic Peptide 1827 H (0-100) pg/mL Serum Total Protein (6.0-8.3) g/dL Albumin (3.5-5.0) g/dL Globulin (2.4-3.5) g/dL Albumin/Globulin Ratio (1.1-2.2) TSH 18.399 H (0.350-4.840) mcIU/mL Free T4 (0.70-1.48) ng/dl Urine Color (Yellow) Urine Clarity (Clear) Urine pH (5.0-8.0) pH Units Ur Specific [place] (1.010-1.025) Urine Protein (Neg-Trace) mg/dL Urine Glucose (UA) (Normal) mg/dL Urine Ketones (Negative) mg/dL Urine Blood (Negative) Urine Nitrite (Negative) Urine Bilirubin (Negative) Urine Urobilinogen (Normal) mg/dL Ur Leukocyte Esterase (Negative) 04/16/16 04/17/16 04/17/16 Range/Units 22:50 04:26 04:26 WBC 7.2 (4.3-11.1) K/mcL RBC 4.54 (3.82-4.97) M/mcL Hgb 13.2 (11.5-15.4) g/dL Hct 40.1 (35.3-44.9) % MCV 88.3 (83.0-100.0) fL MCH 29.1 (28.0-33.3) pg MCHC 32.9 (31.6-35.5) g/dL RDW 16.6 H (11.5-14.5) % Plt Count 202 (140-400) K/mcL MPV 9.9 (9.4-12.4) fL Immature Gran % 1.4 (0-4) % Seg Neutrophils % 65.3 % Lymphocytes % 21.7 % Monocytes % 9.1 % Eosinophils % 1.5 % Basophils % 1.0 % Neutrophils # 4.7 (1.6-8.9) K/mcL Lymphocytes # 1.6 (0.6-4.6) K/mcL Monocytes # 0.7 (0.0-1.3) K/mcL Eosinophils # 0.1 (0.0-0.6) K/mcL Basophils # 0.1 (0.0-0.2) K/mcL PT 35.8 H (9.4-12.1) Seconds INR 3.2 APTT 44.0 H (26.0-36.0) Seconds Sodium (136-145) mEq/L Potassium (3.5-4.5) mEq/L Chloride (98-109) mEq/L Carbon Dioxide (19-29) mEq/L BUN (7-20) mg/dL Creatinine (0.57-1.11) mg/dL Est GFR ( Amer) (> 60) Est GFR (Non-Af Amer) (> 60) BUN/Creatinine Ratio (6-26) Glucose (70-99) mg/dL POC Glucose (58-89) Est Mean Plasma Glucose mg/dl Hemoglobin A1c ( - 5.6) % Calculated Osmolality (280-300) Calcium (8.6-10.8) mg/dL Total Bilirubin (0.2-1.2) mg/dL AST (5-34) Units/L ALT (0-55) Units/L Alkaline Phosphatase (38-126) Units/L Troponin I (0-0.03) ng/mL B-Natriuretic Peptide (0-100) pg/mL Serum Total Protein (6.0-8.3) g/dL Albumin (3.5-5.0) g/dL Globulin (2.4-3.5) g/dL Albumin/Globulin Ratio (1.1-2.2) TSH (0.350-4.840) mcIU/mL Free T4 (0.70-1.48) ng/dl Urine Color Yellow (Yellow) Urine Clarity Clear (Clear) Urine pH 6.0 (5.0-8.0) pH Units Ur Specific [place] 1.006 L (1.010-1.025) Urine Protein Negative (Neg-Trace) mg/dL Urine Glucose (UA) Normal (Normal) mg/dL Urine Ketones Negative (Negative) mg/dL Urine Blood Negative (Negative) Urine Nitrite Negative (Negative) Urine Bilirubin Negative (Negative) Urine Urobilinogen Normal (Normal) mg/dL Ur Leukocyte Esterase Negative (Negative) 04/17/16 Range/Units 04:26 WBC (4.3-11.1) K/mcL RBC (3.82-4.97) M/mcL Hgb (11.5-15.4) g/dL Hct (35.3-44.9) % MCV (83.0-100.0) fL MCH (28.0-33.3) pg MCHC (31.6-35.5) g/dL RDW (11.5-14.5) % Plt Count (140-400) K/mcL MPV (9.4-12.4) fL Immature Gran % (0-4) % Seg Neutrophils % % Lymphocytes % % Monocytes % % Eosinophils % % Basophils % % Neutrophils # (1.6-8.9) K/mcL Lymphocytes # (0.6-4.6) K/mcL Monocytes # (0.0-1.3) K/mcL Eosinophils # (0.0-0.6) K/mcL Basophils # (0.0-0.2) K/mcL PT (9.4-12.1) Seconds INR APTT (26.0-36.0) Seconds Sodium 141 (136-145) mEq/L Potassium 4.2 (3.5-4.5) mEq/L Chloride 103 (98-109) mEq/L Carbon Dioxide 29 (19-29) mEq/L BUN 41 H (7-20) mg/dL Creatinine 1.70 H (0.57-1.11) mg/dL Est GFR ( Amer) 36 L (> 60) Est GFR (Non-Af Amer) 29 L (> 60) BUN/Creatinine Ratio 24 (6-26) Glucose 99 (70-99) mg/dL POC Glucose (58-89) Est Mean Plasma Glucose mg/dl Hemoglobin A1c ( - 5.6) % Calculated Osmolality 302 H (280-300) Calcium 9.6 (8.6-10.8) mg/dL Total Bilirubin 0.6 (0.2-1.2) mg/dL AST 55 H (5-34) Units/L ALT 89 H (0-55) Units/L Alkaline Phosphatase 124 (38-126) Units/L Troponin I (0-0.03) ng/mL B-Natriuretic Peptide (0-100) pg/mL Serum Total Protein 6.2 (6.0-8.3) g/dL Albumin 3.3 L (3.5-5.0) g/dL Globulin 2.9 (2.4-3.5) g/dL Albumin/Globulin Ratio 1.1 (1.1-2.2) TSH (0.350-4.840) mcIU/mL Free T4 1.05 (0.70-1.48) ng/dl Urine Color (Yellow) Urine Clarity (Clear) Urine pH (5.0-8.0) pH Units Ur Specific [place] (1.010-1.025) Urine Protein (Neg-Trace) mg/dL Urine Glucose (UA) (Normal) mg/dL Urine Ketones (Negative) mg/dL Urine Blood (Negative) Urine Nitrite (Negative) Urine Bilirubin (Negative) Urine Urobilinogen (Normal) mg/dL Ur Leukocyte Esterase (Negative)
[2016-04-17] MEDS ORDERED: Warfarin perPT PO PRN (18:00)
[2016-04-17] MEDS: Insulin DETEMIR 100 UNIT/ML X5UNITS SQ SCH (21:09)
[2016-04-18] MEDS ORDERED: 0.9 % Sodium Chloride 500 ML ONE (03:20)
[2016-04-18 04:38] LABS: INR 1.8; Prothrombin Time 19.6 Seconds (9.4-12.1)
[2016-04-18 05:00] LABS: Calcium 9.1 mg/dL (8.6-10.8); Magnesium 2.3 mg/dL (1.6-2.6); Potassium 3.9 mEq/L (3.5-4.5)
[2016-04-18] MEDS: Insulin LISPRO 300 UNITS/3 ML VIAL SQ SCH ×7 (08:53→20:23)
--- NOTE | 2016-04-18 08:53 | Cardiology Progress Note ---
Date of Encounter: 04/18/16 Time of Encounter: 07:30 Assessment and Plan (1) Atrial fibrillation Current Visit: Yes Status: Chronic Hx of PAF; previously rate controlled on max doses oral calcium channel chichi and betablocker. Anticoagulated on Coumadin; follows at [facility]. Afib RVR secondary to holding AV twila blocking agents--Cardizem IV gtt started , currently at 5 mg/hr--increase to keep HR less than 100. 12 hour tele: avg KR=498, HR 100's-140's upon exam. Ideally rate control with either betablocker OR calcium channel chichi. We will continue to follow and adjust medications appropriately. Recommend resuming Coumadin today. Qualifiers: Atrial fibrillation type: paroxysmal Qualified Code(s): I48.0 - Paroxysmal atrial fibrillation (2) Bradycardia Current Visit: Yes Status: Acute HR 34 appears to be junctional rhythm at [facility] ED. Patient was asymptomatic at time--denies presyncope/syncopal symptoms. HR has significantly improved with holding AV twila blocking agents--previously on Cardizem 360 mg and Coreg 25 mg BID. Telemetry reviewed since admission: avg HR=64 SR. Min=51 SB. No significant pause. HR 70s SR upon exam. No indication for PPM at this time. TSH 18--defer management to primary care service. (3) Diastolic CHF, acute on chronic Current Visit: Yes Status: Acute Acute on chronic dCHF secondary to discontinuation of diuretics and ONEL on CKD. Nearly 20lb weight gain in the past 10 days. TTE: EF 60-65%, mild to moderate , moderate LVDD. SCr improving with diuresis, now at baseline. CXR shows mild congestion. Reports significant symptom improvement since admission; nearly euvolemic upon exam. 24 I&O: -5400 mL, cumulative -6605 mL. Recommend transition to oral dose of lasix upon discharge with close monitoring of renal function as outpatient. Low sodium diet, strict I&O's, and daily weights. (4) Chronic kidney disease, stage 3 Current Visit: Yes Status: Chronic Scr improved Continue to monitor closely. Avoid ACEi/ARB. (5) Coronary artery disease Current Visit: Yes Status: Chronic Hx of CAD s/p 2vCABG. Denies chest pain or discomfort. Asa and statin. May consider re-starting betablocker at decreased dose. EF preserved per TTE September 2015. Negative nuclear stress September 2014. Qualifiers: Coronary Disease-Associated Artery/Lesion type: [place] artery [place] vs. transplanted heart: inupiat heart Associated angina: without angina Qualified Code(s): I25.10 - Atherosclerotic heart disease of in[place] coronary artery without angina pectoris Discussion w patient/family: The assessment and plan as outlined above was discussed with the patient and/or family members who expressed understanding and agreement. All questions were answered. Thank you for involving us in the care of your patient. Please call with any questions. The patient will be discussed and reviewed with Dr. Acharya; changes to be made accordingly. Subjective Principal diagnosis: Bradycardia, dCHF Interval history: Seen and examined. Edema/abdominal distention improved. Reports palpitations--now in Afib with RVR. Objective Vital Signs, Last 4 Hours Temp Pulse Resp BP Pulse Ox 04/18/16 07:17 98.3 F 92 18 142/74 96 04/18/16 06:00 111 92/61 04/18/16 05:00 95 95/75 General: Conversant HEENT: Atraumatic Cardiac: Other (irregularly irregular, systolic 2/6 murmur) Lungs: Normal Breath Sounds Neuro: Alert and responsive Abdomen: Soft Skin: No rashes noted on visualized skin Musculoskeletal: No Chest Wall Tenderness Extremities: Normal Pulses, Other (trace BLE edema) Results 04/17/16 04:26 04/18/16 04:10 Lab Results 04/17/16 04/18/16 04/18/16 04:26 04:10 04:10 INR 1.8 Sodium 141 143 Potassium 4.2 3.9 Chloride 103 104 Carbon Dioxide 29 27 BUN 41 H 35 H Creatinine 1.70 H 1.53 H Glucose 99 103 H Calcium 9.6 9.1 Magnesium 2.3 Total Bilirubin 0.6 AST 55 H ALT 89 H Alkaline Phosphatase 124 - Imaging and Cardiology Other Results: Telemetry reviewed. Consult Discharge Plan - Plan Referrals: Blaire Olivo CNP [Primary Care Provider] -
[2016-04-18] MEDS: Furosemide 40 MG/4 ML VIAL IVP SCH (08:55)
[2016-04-18] MEDS: Aspirin 81 MG TAB.CHEW PO SCH (08:55)
--- NOTE | 2016-04-18 10:11 | Event Note ---
Date of Encounter: 04/18/16 Time of Encounter: 10:04 Patient seen and examined independently. Case discussed with nurse practitioner. Agree with findings, impressions, and plan as outlined in Anderson Worrell 's note. Impressions: 1. Bradycardia noted at outside facility. Heart rate improved with holding negative chronotropic agents. 2. Paroxysmal atrial fibrillation. Yesterday, she had converted to sinus rhythm. Overnight, return to AF with RVR. 3. Diastolic heart failure, now appears to be euvolemic. 4. Chronic Coumadin therapy. 5. Acute kidney injury, improving with diuretic therapy. 6. CAD, prior CABG. Recommendations: 1. Cardizem drip has been resumed. AF with RVR continues. Titrate Cardizem drip PRN. Monitor heart rate. 2. Continue Coumadin, goal INR 2-3. 3. Patient -6.6 L. She appears to be near euvolemic on examination. Continue IV diuresis for now, but should be able to change to PO lasix tomorrow. Cr near baseline. 4. Continue aspirin, statin therapy for CAD. Thanks, Brannon Acharya DO, FACC
--- NOTE | 2016-04-18 12:19 | Internal Med Progress Note ---
Date of Encounter: 04/18/16 Time of Encounter: 10:00 - Assessment and plan (1) Atrial fibrillation Current Visit: Yes Status: Chronic Assessment and plan: With rapid ventricular response. On Cardizem drip intravenously. Titrate to control her heart rate to less than 100. Platelets control, will start patient back on beta chichi/ calcium channel chichi per cardiology recommendations. Qualifiers: Atrial fibrillation type: paroxysmal Qualified Code(s): I48.0 - Paroxysmal atrial fibrillation (2) Bradycardia Current Visit: Yes Status: Resolved Assessment and plan: Since resolved. Patient currently in A. fib with RVR (3) Diastolic CHF, acute on chronic Current Visit: Yes Status: Acute Assessment and plan: Improving. Continue Lasix. (4) Chronic kidney disease, stage 3 Current Visit: No Status: Chronic Assessment and plan: Stable (5) Chronic obstructive pulmonary disease Current Visit: No Status: Chronic Assessment and plan: No acute exacerbation Qualifiers: COPD type: unspecified COPD Qualified Code(s): J44.9 - Chronic obstructive pulmonary disease, unspecified (6) Diabetes mellitus Current Visit: Yes Status: Chronic Assessment and plan: Well-controlled Qualifiers: Diabetes mellitus type: type 2 Diabetes mellitus complication status: with unspecified complications Diabetes mellitus long term care social worker insulin use: without long term care social worker use Qualified Code(s): E11.8 - Type 2 diabetes mellitus with unspecified complications (7) Hypertension Current Visit: Yes Status: Chronic Assessment and plan: Well-controlled Qualifiers: Hypertension type: essential hypertension Qualified Code(s): I10 - Essential (primary) hypertension (8) Hypothyroidism Current Visit: Yes Status: Chronic Assessment and plan: Increased levothyroxine to 175 g this morning. Recommend rechecking TSH and free T4 in 3 weeks Qualifiers: Hypothyroidism type: unspecified Qualified Code(s): E03.9 - Hypothyroidism , unspecified - Subjective Interval history: Patient went into A. fib with RVR overnight. She has been started on Cardizem drip. Denies any chest pain or palpitations right now but patient was having sweating and did not feel good last night when her arrhythmia started again. No shortness of breath. No cough or sputum production. - Constitutional Vitals: Temp Pulse Resp BP Pulse Ox 98.4 F 84 18 133/74 94 L 04/18/16 11:11 04/18/16 11:11 04/18/16 11:11 04/18/16 11:11 04/18/16 11:11 General appearance: Present: cooperative, mild distress, A&O X 3, answers questions appropriately - Eye Eye exam: Present: conjuntiva pink, sclera anicteric - Respiratory Respiratory exam: Present: CTAB. Absent: accessory muscle use, rales, rhonchi, wheezes - Cardiovascular Cardiovascular exam: Present: irregular rhythm, +S1, +S2, tachycardia. Absent: diastolic murmur, gallop, rubs, systolic murmur - GI/Abdominal GI/Abdominal exam: Present: normal bowel sounds, soft, no peritoneal signs. Absent: distended, tenderness - Extremities Exam Extremities exam: Present: warm, radial pulses palpable and symetrical. Absent : calf tenderness, cyanotic, pedal edema - Neurological Exam Neurological exam: Present: alert, oriented X3, no focal deficits, strengths equal and symetr throughout. Absent: facial droop, speech deficit Internal Medicine: Result - Labs CBC & Chem 7: 04/17/16 04:26 04/18/16 04:10 Labs: BMP 04/18/16 04:10 Sodium 143 Potassium 3.9 Chloride 104 Carbon Dioxide 27 BUN 35 H Creatinine 1.53 H Glucose 103 H Calcium 9.1 - ABG Interpretation ABG results: PT/INR, D-dimer PT 19.6 Seconds (9.4-12.1) H 04/18/16 04:10 Consult Discharge Plan - Plan Referrals: Blaire Olivo, THREADING MACHINE TENDER [Primary Care Provider] - - Attending Attestation This document has been at least partially created by [employer] voice recognition technology by Dr. Escobar. Errors in grammar, wording or other phrases may exist. If errors are found after the documentation is signed, they will be addressed individually in the addendum section of this document when appropriate. Medical Decision Making - MDM Narrative Medical decision making narrative: High risk for complications due to intravenous diltiazem use to control heart rate for A. fib - Lab Data Lab results reviewed: Yes I reviewed the patient's lab results. Result diagrams: 04/17/16 04:26 04/18/16 04:10 Lab Results 04/16/16 04/16/16 04/16/16 Range/Units 20:43 21:36 21:36 WBC 9.8 (4.3-11.1) K/mcL RBC 4.60 (3.82-4.97) M/mcL Hgb 13.2 (11.5-15.4) g/dL Hct 40.6 (35.3-44.9) % MCV 88.3 (83.0-100.0) fL MCH 28.7 (28.0-33.3) pg MCHC 32.5 (31.6-35.5) g/dL RDW 16.6 H (11.5-14.5) % Plt Count 234 (140-400) K/mcL MPV 9.9 (9.4-12.4) fL Immature Gran % 1.5 (0-4) % Seg Neutrophils % 69.9 % Lymphocytes % 17.9 % Monocytes % 8.6 % Eosinophils % 1.2 % Basophils % 0.9 % Neutrophils # 6.8 (1.6-8.9) K/mcL Lymphocytes # 1.8 (0.6-4.6) K/mcL Monocytes # 0.8 (0.0-1.3) K/mcL Eosinophils # 0.1 (0.0-0.6) K/mcL Basophils # 0.1 (0.0-0.2) K/mcL PT (9.4-12.1) Seconds INR APTT (26.0-36.0) Seconds Sodium (136-145) mEq/L Potassium (3.5-4.5) mEq/L Chloride (98-109) mEq/L Carbon Dioxide (19-29) mEq/L BUN (7-20) mg/dL Creatinine (0.57-1.11) mg/dL Est GFR ( Amer) (> 60) Est GFR (Non-Af Amer) (> 60) BUN/Creatinine Ratio (6-26) Glucose (70-99) mg/dL POC Glucose 168 H (58-89) Est Mean Plasma Glucose mg/dl Hemoglobin A1c ( - 5.6) % Calculated Osmolality (280-300) Calcium (8.6-10.8) mg/dL Magnesium (1.6-2.6) mg/dL Total Bilirubin (0.2-1.2) mg/dL AST (5-34) Units/L ALT (0-55) Units/L Alkaline Phosphatase (38-126) Units/L Troponin I 0.02 (0-0.03) ng/mL B-Natriuretic Peptide (0-100) pg/mL Serum Total Protein (6.0-8.3) g/dL Albumin (3.5-5.0) g/dL Globulin (2.4-3.5) g/dL Albumin/Globulin Ratio (1.1-2.2) TSH (0.350-4.840) mcIU/mL Free T4 (0.70-1.48) ng/dl Urine Color (Yellow) Urine Clarity (Clear) Urine pH (5.0-8.0) pH Units Ur Specific [place] (1.010-1.025) Urine Protein (Neg-Trace) mg/dL Urine Glucose (UA) (Normal) mg/dL Urine Ketones (Negative) mg/dL Urine Blood (Negative) Urine Nitrite (Negative) Urine Bilirubin (Negative) Urine Urobilinogen (Normal) mg/dL Ur Leukocyte Esterase (Negative) 04/16/16 04/16/16 04/16/16 Range/Units 21:36 21:36 21:36 WBC (4.3-11.1) K/mcL RBC (3.82-4.97) M/mcL Hgb (11.5-15.4) g/dL Hct (35.3-44.9) % MCV (83.0-100.0) fL MCH (28.0-33.3) pg MCHC (31.6-35.5) g/dL RDW (11.5-14.5) % Plt Count (140-400) K/mcL MPV (9.4-12.4) fL Immature Gran % (0-4) % Seg Neutrophils % % Lymphocytes % % Monocytes % % Eosinophils % % Basophils % % Neutrophils # (1.6-8.9) K/mcL Lymphocytes # (0.6-4.6) K/mcL Monocytes # (0.0-1.3) K/mcL Eosinophils # (0.0-0.6) K/mcL Basophils # (0.0-0.2) K/mcL PT (9.4-12.1) Seconds INR APTT (26.0-36.0) Seconds Sodium 140 (136-145) mEq/L Potassium 4.2 (3.5-4.5) mEq/L Chloride 104 (98-109) mEq/L Carbon Dioxide 25 (19-29) mEq/L BUN 44 H (7-20) mg/dL Creatinine 1.87 H (0.57-1.11) mg/dL Est GFR ( Amer) 32 L (> 60) Est GFR (Non-Af Amer) 26 L (> 60) BUN/Creatinine Ratio 24 (6-26) Glucose 140 H (70-99) mg/dL POC Glucose (58-89) Est Mean Plasma Glucose 160 mg/dl Hemoglobin A1c 7.2 H ( - 5.6) % Calculated Osmolality 303 H (280-300) Calcium 9.8 (8.6-10.8) mg/dL Magnesium (1.6-2.6) mg/dL Total Bilirubin (0.2-1.2) mg/dL AST (5-34) Units/L ALT (0-55) Units/L Alkaline Phosphatase (38-126) Units/L Troponin I (0-0.03) ng/mL B-Natriuretic Peptide 1827 H (0-100) pg/mL Serum Total Protein (6.0-8.3) g/dL Albumin (3.5-5.0) g/dL Globulin (2.4-3.5) g/dL Albumin/Globulin Ratio (1.1-2.2) TSH 18.399 H (0.350-4.840) mcIU/mL Free T4 (0.70-1.48) ng/dl Urine Color (Yellow) Urine Clarity (Clear) Urine pH (5.0-8.0) pH Units Ur Specific [place] (1.010-1.025) Urine Protein (Neg-Trace) mg/dL Urine Glucose (UA) (Normal) mg/dL Urine Ketones (Negative) mg/dL Urine Blood (Negative) Urine Nitrite (Negative) Urine Bilirubin (Negative) Urine Urobilinogen (Normal) mg/dL Ur Leukocyte Esterase (Negative) 04/16/16 04/17/16 04/17/16 Range/Units 22:50 04:26 04:26 WBC 7.2 (4.3-11.1) K/mcL RBC 4.54 (3.82-4.97) M/mcL Hgb 13.2 (11.5-15.4) g/dL Hct 40.1 (35.3-44.9) % MCV 88.3 (83.0-100.0) fL MCH 29.1 (28.0-33.3) pg MCHC 32.9 (31.6-35.5) g/dL RDW 16.6 H (11.5-14.5) % Plt Count 202 (140-400) K/mcL MPV 9.9 (9.4-12.4) fL Immature Gran % 1.4 (0-4) % Seg Neutrophils % 65.3 % Lymphocytes % 21.7 % Monocytes % 9.1 % Eosinophils % 1.5 % Basophils % 1.0 % Neutrophils # 4.7 (1.6-8.9) K/mcL Lymphocytes # 1.6 (0.6-4.6) K/mcL Monocytes # 0.7 (0.0-1.3) K/mcL Eosinophils # 0.1 (0.0-0.6) K/mcL Basophils # 0.1 (0.0-0.2) K/mcL PT 35.8 H (9.4-12.1) Seconds INR 3.2 APTT 44.0 H (26.0-36.0) Seconds Sodium (136-145) mEq/L Potassium (3.5-4.5) mEq/L Chloride (98-109) mEq/L Carbon Dioxide (19-29) mEq/L BUN (7-20) mg/dL Creatinine (0.57-1.11) mg/dL Est GFR ( Amer) (> 60) Est GFR (Non-Af Amer) (> 60) BUN/Creatinine Ratio (6-26) Glucose (70-99) mg/dL POC Glucose (58-89) Est Mean Plasma Glucose mg/dl Hemoglobin A1c ( - 5.6) % Calculated Osmolality (280-300) Calcium (8.6-10.8) mg/dL Magnesium (1.6-2.6) mg/dL Total Bilirubin (0.2-1.2) mg/dL AST (5-34) Units/L ALT (0-55) Units/L Alkaline Phosphatase (38-126) Units/L Troponin I (0-0.03) ng/mL B-Natriuretic Peptide (0-100) pg/mL Serum Total Protein (6.0-8.3) g/dL Albumin (3.5-5.0) g/dL Globulin (2.4-3.5) g/dL Albumin/Globulin Ratio (1.1-2.2) TSH (0.350-4.840) mcIU/mL Free T4 (0.70-1.48) ng/dl Urine Color Yellow (Yellow) Urine Clarity Clear (Clear) Urine pH 6.0 (5.0-8.0) pH Units Ur Specific [place] 1.006 L (1.010-1.025) Urine Protein Negative (Neg-Trace) mg/dL Urine Glucose (UA) Normal (Normal) mg/dL Urine Ketones Negative (Negative) mg/dL Urine Blood Negative (Negative) Urine Nitrite Negative (Negative) Urine Bilirubin Negative (Negative) Urine Urobilinogen Normal (Normal) mg/dL Ur Leukocyte Esterase Negative (Negative) 04/17/16 04/17/16 04/17/16 Range/Units 04:26 07:26 11:25 WBC (4.3-11.1) K/mcL RBC (3.82-4.97) M/mcL Hgb (11.5-15.4) g/dL Hct (35.3-44.9) % MCV (83.0-100.0) fL MCH (28.0-33.3) pg MCHC (31.6-35.5) g/dL RDW (11.5-14.5) % Plt Count (140-400) K/mcL MPV (9.4-12.4) fL Immature Gran % (0-4) % Seg Neutrophils % % Lymphocytes % % Monocytes % % Eosinophils % % Basophils % % Neutrophils # (1.6-8.9) K/mcL Lymphocytes # (0.6-4.6) K/mcL Monocytes # (0.0-1.3) K/mcL Eosinophils # (0.0-0.6) K/mcL Basophils # (0.0-0.2) K/mcL PT (9.4-12.1) Seconds INR APTT (26.0-36.0) Seconds Sodium 141 (136-145) mEq/L Potassium 4.2 (3.5-4.5) mEq/L Chloride 103 (98-109) mEq/L Carbon Dioxide 29 (19-29) mEq/L BUN 41 H (7-20) mg/dL Creatinine 1.70 H (0.57-1.11) mg/dL Est GFR ( Amer) 36 L (> 60) Est GFR (Non-Af Amer) 29 L (> 60) BUN/Creatinine Ratio 24 (6-26) Glucose 99 (70-99) mg/dL POC Glucose 105 H 201 H (58-89) Est Mean Plasma Glucose mg/dl Hemoglobin A1c ( - 5.6) % Calculated Osmolality 302 H (280-300) Calcium 9.6 (8.6-10.8) mg/dL Magnesium (1.6-2.6) mg/dL Total Bilirubin 0.6 (0.2-1.2) mg/dL AST 55 H (5-34) Units/L ALT 89 H (0-55) Units/L Alkaline Phosphatase 124 (38-126) Units/L Troponin I (0-0.03) ng/mL B-Natriuretic Peptide (0-100) pg/mL Serum Total Protein 6.2 (6.0-8.3) g/dL Albumin 3.3 L (3.5-5.0) g/dL Globulin 2.9 (2.4-3.5) g/dL Albumin/Globulin Ratio 1.1 (1.1-2.2) TSH (0.350-4.840) mcIU/mL Free T4 1.05 (0.70-1.48) ng/dl Urine Color (Yellow) Urine Clarity (Clear) Urine pH (5.0-8.0) pH Units Ur Specific [place] (1.010-1.025) Urine Protein (Neg-Trace) mg/dL Urine Glucose (UA) (Normal) mg/dL Urine Ketones (Negative) mg/dL Urine Blood (Negative) Urine Nitrite (Negative) Urine Bilirubin (Negative) Urine Urobilinogen (Normal) mg/dL Ur Leukocyte Esterase (Negative) 04/17/16 04/18/16 04/18/16 Range/Units 16:45 04:10 04:10 WBC (4.3-11.1) K/mcL RBC (3.82-4.97) M/mcL Hgb (11.5-15.4) g/dL Hct (35.3-44.9) % MCV (83.0-100.0) fL MCH (28.0-33.3) pg MCHC (31.6-35.5) g/dL RDW (11.5-14.5) % Plt Count (140-400) K/mcL MPV (9.4-12.4) fL Immature Gran % (0-4) % Seg Neutrophils % % Lymphocytes % % Monocytes % % Eosinophils % % Basophils % % Neutrophils # (1.6-8.9) K/mcL Lymphocytes # (0.6-4.6) K/mcL Monocytes # (0.0-1.3) K/mcL Eosinophils # (0.0-0.6) K/mcL Basophils # (0.0-0.2) K/mcL PT 19.6 H (9.4-12.1) Seconds INR 1.8 APTT (26.0-36.0) Seconds Sodium 143 (136-145) mEq/L Potassium 3.9 (3.5-4.5) mEq/L Chloride 104 (98-109) mEq/L Carbon Dioxide 27 (19-29) mEq/L BUN 35 H (7-20) mg/dL Creatinine 1.53 H (0.57-1.11) mg/dL Est GFR ( Amer) 40 L (> 60) Est GFR (Non-Af Amer) 33 L (> 60) BUN/Creatinine Ratio 23 (6-26) Glucose 103 H (70-99) mg/dL POC Glucose 91 H (58-89) Est Mean Plasma Glucose mg/dl Hemoglobin A1c ( - 5.6) % Calculated Osmolality 304 H (280-300) Calcium 9.1 (8.6-10.8) mg/dL Magnesium 2.3 (1.6-2.6) mg/dL Total Bilirubin (0.2-1.2) mg/dL AST (5-34) Units/L ALT (0-55) Units/L Alkaline Phosphatase (38-126) Units/L Troponin I (0-0.03) ng/mL B-Natriuretic Peptide (0-100) pg/mL Serum Total Protein (6.0-8.3) g/dL Albumin (3.5-5.0) g/dL Globulin (2.4-3.5) g/dL Albumin/Globulin Ratio (1.1-2.2) TSH (0.350-4.840) mcIU/mL Free T4 (0.70-1.48) ng/dl Urine Color (Yellow) Urine Clarity (Clear) Urine pH (5.0-8.0) pH Units Ur Specific [place] (1.010-1.025) Urine Protein (Neg-Trace) mg/dL Urine Glucose (UA) (Normal) mg/dL Urine Ketones (Negative) mg/dL Urine Blood (Negative) Urine Nitrite (Negative) Urine Bilirubin (Negative) Urine Urobilinogen (Normal) mg/dL Ur Leukocyte Esterase (Negative)
[2016-04-18] MEDS ORDERED: *HR* Warfarin 2.5 MG TABLET PO SCH ×2 (18:00)
[2016-04-18] MEDS ORDERED: *HR* Warfarin 5 MG TABLET PO SCH (18:00)
[2016-04-18] MEDS: Insulin DETEMIR 100 UNIT/ML X5UNITS SQ SCH (20:32)
[2016-04-19 05:29] LABS: INR 1.5; Prothrombin Time 16.1 Seconds (9.4-12.1)
[2016-04-19] MEDS: Insulin LISPRO 300 UNITS/3 ML VIAL SQ SCH ×4 (08:28→11:58)
[2016-04-19] MEDS: Furosemide 40 MG/4 ML VIAL IVP SCH (08:28)
[2016-04-19] MEDS: Aspirin 81 MG TAB.CHEW PO SCH (08:28)
--- NOTE | 2016-04-19 08:59 | Cardiology Progress Note ---
Date of Encounter: 04/19/16 Time of Encounter: 08:30 Assessment and Plan (1) Atrial fibrillation Current Visit: Yes Status: Chronic Hx of PAF; previously rate controlled on max doses oral calcium channel chichi and betablocker. Anticoagulated on Coumadin; follows at [facility]. Afib RVR secondary to holding AV twila blocking agents--Rate is now controlled, start Cardizem 240 mg now, then d/c gtt. 12 hour tele: avg HR=90 Afib. HR 80's upon exam. Ideally rate control with either betablocker OR calcium channel chichi. We will continue to follow and adjust medications appropriately. Continue coumadin. Qualifiers: Atrial fibrillation type: paroxysmal Qualified Code(s): I48.0 - Paroxysmal atrial fibrillation (2) Bradycardia Current Visit: Yes Status: Resolved HR 34 appeared to be junctional rhythm at [facility] ED. Patient was asymptomatic at time--denies presyncope/syncopal symptoms. HR significantly improved with holding AV twila blocking agents--previously on Cardizem 360 mg and Coreg 25 mg BID. Now afib RVR--cautiously resuming calcium chichi. (3) Diastolic CHF, acute on chronic Current Visit: Yes Status: Acute Acute on chronic dCHF secondary to discontinuation of diuretics and ONEL on CKD. Nearly 20lb weight gain in the past 10 days. TTE: EF 60-65%, mild to moderate , moderate LVDD. SCr improving with diuresis, now at baseline. CXR demonstrated mild congestion. Reports significant symptom improvement since admission; nearly euvolemic upon exam. 24 I&O: -2325 mL, cumulative -7975 mL. Recommend transition to oral dose of lasix upon discharge with close monitoring of renal function as outpatient. Low sodium diet, strict I&O's, and daily weights. (4) Chronic kidney disease, stage 3 Current Visit: No Status: Chronic Scr improved Continue to monitor closely. Avoid ACEi/ARB. (5) Coronary artery disease Current Visit: Yes Status: Chronic Hx of CAD s/p 2vCABG. Denies chest pain or discomfort. Asa and statin. May consider re-starting betablocker at decreased dose. EF preserved per TTE September 2015. Negative nuclear stress September 2014. Qualifiers: Coronary Disease-Associated Artery/Lesion type: [place] artery [place] vs. transplanted heart: [place] heart Associated angina: without angina Qualified Code(s): I25.10 - Atherosclerotic heart disease of [place] coronary artery without angina pectoris Discussion w patient/family: The assessment and plan as outlined above was discussed with the patient and/or family members who expressed understanding and agreement. All questions were answered. Thank you for involving us in the care of your patient. Please call with any questions. The patient will be discussed and reviewed with Dr. Mendoza; changes to be made accordingly. Subjective Principal diagnosis: Bradycardia, dCHF Interval history: Seen and examined. Edema/abdominal distention at baseline. Continue to be in atrial fibrillation, on Cardizem gtt at 10 mg/hr. Objective Vital Signs, Last 4 Hours Temp Pulse Resp BP Pulse Ox 04/19/16 07:21 98.3 F 112 18 129/72 97 04/19/16 06:00 70 123/76 04/19/16 05:00 57 105/81 General: Conversant, No Apparent Distress HEENT: Atraumatic, Normocephaly, Mucus Membranes Moist Cardiac: Other (irregularly irregular, 2/6 systolic murmur) Lungs: Normal Breath Sounds Neuro: Alert and responsive Abdomen: Soft Skin: No rashes noted on visualized skin Musculoskeletal: No Chest Wall Tenderness Extremities: No Edema, Normal Pulses Results 04/17/16 04:26 04/18/16 04:10 Lab Results 04/19/16 04:45 INR 1.5 Active Medications Acetaminophen (Tylenol) 650 mg PO Q6HR PRN PRN Reason: Mild Pain (1-3) Stop: 10/16/16 20:42 Acetaminophen/Hydrocodone Bitart ([place] 5-325 Mg) 1 tab PO Q4HR PRN PRN Reason: Moderate Pain (4-6) Stop: 10/16/16 20:42 Last Admin: 04/19/16 00:06 Dose: 1 tab Albuterol/Ipratropium (Duoneb) 3 ml IH [id number] PRN; Protocol PRN Reason: Shortness Of Breath/Wheezing Stop: 10/16/16 20:47 Aspirin (Aspirin) 81 mg PO QAM [facility] Stop: 10/17/16 09:01 Last Admin: 04/19/16 08:28 Dose: 81 mg Atorvastatin Calcium (Lipitor) 40 mg PO HS MARCELO Stop: 10/17/16 21:01 Last Admin: 04/18/16 20:32 Dose: 40 mg Calcitriol (Rocaltrol) 0.25 mcg PO DAILY [facility] Stop: 10/17/16 09:01 Last Admin: 04/19/16 08:28 Dose: 0.25 mcg Dextrose/Water (Dextrose 50% (Syg)) 25 ml IVP AD PRN PRN Reason: Hypoglycemia Stop: 10/16/16 20:43 Diltiazem HCl (Cardizem Cd) 240 mg PO DAILY [facility] Stop: 10/19/16 09:01 Ferrous Sulfate (Ferrous Sulfate) 325 mg PO BIDWM [facility] Stop: 10/17/16 08:01 Last Admin: 04/19/16 08:28 Dose: 325 mg Furosemide (Lasix) 40 mg IVP DAILY [facility] Stop: 10/17/16 09:01 Last Admin: 04/19/16 08:28 Dose: 40 mg Diltiazem HCl 125 mg/ Dextrose 125 mls @ 10 mls/hr IVC .[id number] MARCELO PRN Reason: 10 MG/HR Stop: 04/19/16 11:00 Last Infusion: 04/19/16 09:37 Dose: 5 mg/hr, 5 mls/hr Insulin Detemir (Levemir) 12 unit 0.15 unit/kg (12 unit) SQ HS [facility] Stop: 10/17/16 21:01 Last Admin: 04/18/16 20:32 Dose: 12 unit Insulin Human Lispro (Humalog) 0 units SQ HS [facility] PRN Reason: Protocol Stop: 10/16/16 21:01 Last Admin: 04/18/16 20:23 Dose: Not Given Insulin Human Lispro (Humalog) 0 units SQ TIDAC [facility] PRN Reason: Protocol Stop: 10/17/16 07:31 Last Admin: 04/19/16 08:29 Dose: Not Given Insulin Human Lispro (Humalog) 4 units 0.05 units/kg (4 units) SQ TIDWM [facility] Stop: 10/17/16 08:01 Last Admin: 04/19/16 08:28 Dose: 4 units Levothyroxine Sodium (Synthroid) 175 mcg PO DAILY@0630 [facility] Stop: 10/17/16 16:22 Last Admin: 04/19/16 05:29 Dose: 175 mcg Morphine Sulfate (Morphine Sulfate) 2 mg IVP Q4HR PRN PRN Reason: Severe Pain (7-10) Stop: 10/16/16 20:42 Naloxone HCl (Narcan) 0.4 mg IVP Q2MIN PRN PRN Reason: Opioid Reversal Stop: 10/16/16 20:42 Ondansetron HCl (Zofran) 4 mg IVP Q8HR PRN PRN Reason: Nausea And Vomiting Stop: 10/16/16 20:42 Potassium Chloride (Potassium Chloride) 10 meq PO QAM MARCELO Stop: 10/17/16 09:01 Last Admin: 04/19/16 08:28 Dose: 10 meq Warfarin Sodium (Coumadin Perpt) 0 each PO DAILY@1800 PRN PRN Reason: SEE COMMENTS Stop: 10/17/16 18:01 Warfarin Sodium (Coumadin) 2.5 mg PO 1800 MARCELO Stop: 10/18/16 18:01 Last Admin: 04/18/16 17:02 Dose: 2.5 mg - Imaging and Cardiology Chest Xray: report reviewed Echo: report reviewed Other Results: Telemetry reviewed. Avg HR=90 afib. - EKG Interpretation EKG results cardiology: personally reviewed Consult Discharge Plan - Plan Referrals: Blaire Olivo, REHABILITATION SERVICES AIDE [Primary Care Provider] -
[2016-04-19] MEDS ORDERED: Diltiazem CD (24hr) 240 MG CAPSULE PO SCH (09:00)
[2016-04-19 11:38] VITALS: BP 125/65
--- NOTE | 2016-04-19 12:31 | Discharge Summary ---
Date of Encounter: 04/19/16 Time of Encounter: 12:31 - Discharge Diagnosis (1) Bradycardia Priority: Primary Status: Resolved (2) Atrial fibrillation Priority: Secondary Status: Chronic Qualifiers: Atrial fibrillation type: paroxysmal Qualified Code(s): I48.0 - Paroxysmal atrial fibrillation (3) Diastolic CHF, acute on chronic Priority: Secondary Status: Acute (4) Chronic kidney disease, stage 3 Priority: Secondary Status: Chronic (5) Chronic obstructive pulmonary disease Priority: Secondary Status: Chronic Qualifiers: COPD type: unspecified COPD Qualified Code(s): J44.9 - Chronic obstructive pulmonary disease, unspecified (6) Diabetes mellitus Priority: Secondary Status: Chronic Qualifiers: Diabetes mellitus type: type 2 Diabetes mellitus complication status: with unspecified complications Diabetes mellitus television receiver analyzer insulin use: without usp use Qualified Code(s): E11.8 - Type 2 diabetes mellitus with unspecified complications (7) Hypertension Priority: Secondary Status: Chronic Qualifiers: Hypertension type: essential hypertension Qualified Code(s): I10 - Essential (primary) hypertension (8) Hypothyroidism Priority: Secondary Status: Chronic Qualifiers: Hypothyroidism type: unspecified Qualified Code(s): E03.9 - Hypothyroidism , unspecified - Discharge Medications Prescriptions: Diltiazem CD (24hr) [Cardizem CD] 240 mg PO DAILY #30 cap.er.24h Furosemide [Lasix] 40 mg PO DAILY #30 tab Levothyroxine [Synthroid] 175 mcg PO DAILY@0630 #30 tablet Home Medications: Atorvastatin [Lipitor] 40 mg PO HS 05/03/15 [History] Magnesium Oxide [Magnesium] 400 mg PO M 05/03/15 [History] Potassium Chloride [K-Tab ER] 10 meq PO QAM 05/03/15 [History] Aspirin 81 mg PO QAM 07/06/15 [History] Insulin ASPART [Novolog Flexpen] 5 - 15 unit SQ TIDWM 07/06/15 [History] Warfarin [Coumadin] 2.5 mg PO DAILY 08/24/15 [History] Amlodipine [Norvasc] 5 mg PO BID 04/16/16 [History] Calcitriol [Rocaltrol] 0.25 mcg PO MOWEFR 04/16/16 [History] Cholecalciferol (D-3) [Vitamin D] 2,000 unit PO DAILY 04/16/16 [History] Ferrous Sulfate [Iron] 325 mg PO BID 04/16/16 [History] Insulin DETEMIR [Levemir Flextouch] 30 unit SQ HS 04/16/16 [History] Diltiazem CD (24hr) [Cardizem CD] 240 mg PO DAILY #30 cap.er.24h 04/19/16 [Rx] Furosemide [Lasix] 40 mg PO DAILY #30 tab 04/19/16 [Rx] Levothyroxine [Synthroid] 175 mcg PO DAILY@0630 #30 tablet 04/19/16 [Rx] Allergies/Adverse Reactions: Allergies nitroglycerin Adverse Reaction (Verified 04/16/16 23:56) Nausea Procedures/tests Complete & Pending: Procedures Performed prior 72 hours Category Date Time Status EV echocardiogram Routine Y 04/16/16 20:46 Completed - Notes to Outpatient Provider Please check basic panel in 1 week Date of admission: 04/16/16 20:41 Primary care physician: Blaire Olivo Consults: 04/16/16 20:45 Consult to Cardiology [CONS] Routine Comment: Consulting Provider: Cardiology Nguyen Reason for Consult: Bradycardia, evaluation for pacemaker palcement Call Completed: No Discharging clinician: Zach Escobar Anticipated date of discharge: 04/19/16 - Patient Status Disposition: Home, Self-Care Condition: Good Functional capacity at discharge: independent ambulation Overall status at discharge: patient is back to baseline - Discharge Instructions Instructions: Atrial Fibrillation (DC), Diabetes Mellitus Type 2 in Adults (DC) Follow Up With: Blaire Olivo, MARY [Primary Care Provider] - 04/26/16 10:00 am Alicia Sethi DO [Partnered Physician] - (In 1-2 weeks) - Diet and Activity Activity: as per physical therapy Diet: low fat, low cholesterol, low salt diet Hospital course: Ms. Smith is a 75 year old female with history of hypothyroidism, atrial fibrillation, chronic kidney disease and coronary artery disease, hypertension was admitted here with symptomatic bradycardia. She had a heart rate of 34 on initial presentation with junctional rhythm. She had been taking Cardizem 360 mg daily and Coreg 25 mg twice daily at home. These medications were stopped and the patient was closely monitored in the hospital with telemetry. Her heart rate improved. Cardiology was consulted. She also had signs and symptoms of diastolic congestive heart failure. Her diuretics had been discontinued prior to presentation when she had and upon weight gain. She was restarted back on Lasix with improvement in her heart failure. Her renal function has remained stable. She developed rapid atrial fibrillation yesterday and was placed on Cardizem drip. Her heart rate has now improved. She is now back on oral Cardizem. Cardiology recommends discharging the patient on 240 mg oral Cardizem and stopping carvedilol. The patient also needs to have her renal function closely followed as outpatient. She will be discharged with follow-up appointments to see her primary care provider and online producer. - Time Spent with Patient Total time spent providing and/or coordinating discharge services: Greater than 30 minutes (35 min) - Constitutional Vitals: Temp Pulse Resp BP Pulse Ox 98.1 F 75 18 125/65 98 04/19/16 11:32 04/19/16 11:32 04/19/16 11:32 04/19/16 11:32 04/19/16 11:32 General appearance: Present: cooperative, mild distress, A&O X 3, answers questions appropriately - Respiratory Respiratory exam: Present: CTAB. Absent: accessory muscle use, rales, rhonchi, wheezes - Cardiovascular Cardiovascular exam: Present: irregular rhythm, +S1, +S2. Absent: diastolic murmur, gallop, rubs, systolic murmur - GI/Abdominal GI/Abdominal exam: Present: normal bowel sounds, soft, no peritoneal signs. Absent: distended, tenderness - Attending Attestation This document has been at least partially created by [employer] voice recognition technology by Dr. Escobar. Errors in grammar, wording or other phrases may exist. If errors are found after the documentation is signed, they will be addressed individually in the addendum section of this document when appropriate.
== END 2016-04-19 15:25 | disposition home or self-care (01) | DRG 308 ==
LOC: 2NNU
PROVIDERS: ADMIT Internal Medicine; ATTEND Internal Medicine

== ENCOUNTER 2016-08-02 19:09 | Inpatient (IN) ==
--- NOTE | 2016-08-02 19:26 | Emergency Department Note ---
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 She denies any definite inciting factors, but does note that she drank caffeinated coffee this morning. She states that she does typically drink decaf, but is able to usually tolerate drinking caffeinated coffee. She went to see her filler room attendant this morning at 9 AM and did not have any symptoms at that time. She denies missing any medication doses or medication changes. She denies any exertion. She states that her symptoms are worse with trying to ambulate and improved with rest. She denies any radiation into her neck or jaw. She denies any vomiting, fever or chills, diarrhea, abdominal pain, GI or symptoms. She denies any lower extremity edema over her baseline. Pt Subjective Complaint: rapid heart beat - Related Data Home Medications Medication Instructions Recorded Confirmed Atorvastatin [Lipitor] 40 mg PO HS 05/03/15 08/02/16 Magnesium Oxide [Magnesium] 400 mg PO QAM 05/03/15 08/02/16 Potassium Chloride [K-Tab ER] 10 meq PO QAM 05/03/15 08/02/16 Aspirin 81 mg PO QAM 07/06/15 08/02/16 Insulin ASPART [Novolog Flexpen] 5 - 15 unit SQ TIDWM 07/06/15 08/02/16 Warfarin [Coumadin] 2.5 mg PO SUMOTUWETHSA 08/24/15 08/02/16 Ferrous Sulfate [Iron] 325 mg PO BID 04/16/16 08/02/16 Insulin DETEMIR [Levemir Flextouch] 30 unit SQ HS 04/16/16 08/02/16 Carvedilol 3.125 mg PO BID 08/02/16 08/02/16 Diltiazem HCl [Diltiazem 24Hr Cd] 360 mg PO DAILY 08/02/16 08/02/16 Warfarin [Coumadin] 3.75 mg PO FR 08/02/16 08/02/16 Previous Rx's Medication Instructions Recorded Furosemide [Lasix] 40 mg PO DAILY #30 tab 04/19/16 Levothyroxine [Synthroid] 175 mcg PO DAILY@0630 #30 tablet 04/19/16 Allergies Allergy/AdvReac Type Severity Reaction Status Date / Time nitroglycerin AdvReac Nausea Verified 04/16/16 23:56 All systems ED: reviewed and negative except as stated. Past Medical History - Past Medical History Attestation: Yes The following information was validated with the patient. Source: patient Medical history: Reports: aortic aneurysm, atrial fibrillation, CHF, COPD, coronary artery disease, diabetes, GERD, hyperlipidemia, hypertension, renal disease Surgical history: Reports: angioplasty/stent, coronary bypass (CABG) Psychiatric history: Reports: no psych history NEUROSURGEON history: Reports: no NEUROSURGEON history, other - Social History Smoking Status: Former smoker Smokeless Tobacco Status: No Alcohol use: Reports: none Drug use: Reports: none Physical Exam - Head Head exam: atraumatic, normocephalic, normal inspection - Eye Eye exam: Present: normal appearance, PERRL, EOMI - ENT ENT exam: normal exam, normal oropharynx, mucous membranes moist - Neck Neck exam: Present: normal inspection, full ROM, trachea midline - Chest Chest inspection: Present: normal inspection, symmetric chest wall rise - Respiratory Respiratory exam: Clear to auscultation bilaterally without wheezes rales or rhonchi Cardiovascular Irregular and tachycardic. No murmurs. - Abdominal Exam Abdominal exam: Present: soft, Non-Tender. Absent: tenderness, distention, guarding, rebound, rigidity - Extremities Exam Extremities exam: Present: normal inspection, full ROM. No significant pedal edema. - Back Exam Back exam: Present: normal inspection, full ROM. Absent: tenderness, CVA tenderness (R), CVA tenderness (L) - Neurological Exam Neurological exam: Present: alert, oriented X3, CN II-XII intact - Psychiatric Psychiatric exam: Present: normal affect, normal mood - Skin Skin exam: Present: warm, dry, intact, normal color - General General appearance: alert Course - Reevaluation(s) Reevaluation #1: Repeat EKG shows atrial fibrillation at 105. No ST elevation or depression. Patient denies any symptoms at this time. She received a bolus of 20 mg of diltiazem with resolution of her RVR and is currently on a drip at 5 mg per hour. Her INR is therapeutic. She is significantly hypothyroid. She does note that she has not been taking her medicine as directed. This will need to be addressed by the hospitalist. Troponin mildly elevated to 0.06. This is likely due to demand ischemia from her atrial fibrillation with RVR. Will need repeated as well. Time: 20:45 Vital Signs Temperature 98.1 F 08/02/16 19:16 Pulse Rate 168 08/02/16 19:16 Respiratory Rate 22 08/02/16 19:16 Blood Pressure 168/107 08/02/16 19:16 O2 Sat by Pulse Oximetry 97 08/02/16 19:16 Temperature 97.4 F L 08/02/16 22:11 Pulse Rate 100 08/02/16 22:11 Respiratory Rate 20 08/02/16 22:14 Blood Pressure 141/101 08/02/16 22:14 O2 Sat by Pulse Oximetry 96 08/02/16 22:11 Oxygen Delivery Oxygen Delivery Room Air Arrhythmia/Palpitations - Lab Data Result diagrams: 08/03/16 01:21 08/03/16 01:21 Lab Results 08/02/16 08/02/16 08/02/16 Range/Units 19:22 19:22 19:22 WBC 11.0 (4.3-11.1) K/mcL RBC 5.73 H (3.82-4.97) M/mcL Hgb 16.5 H (11.5-15.4) g/dL Hct 50.8 H (35.3-44.9) % MCV 88.7 (83.0-100.0) fL MCH 28.8 (28.0-33.3) pg MCHC 32.5 (31.6-35.5) g/dL RDW 15.6 H (11.5-14.5) % Plt Count 257 (140-400) K/mcL MPV 10.2 (9.4-12.4) fL Immature Gran % 1.8 (0-4) % Seg Neutrophils % 63.0 % Lymphocytes % 25.3 % Monocytes % 8.0 % Eosinophils % 0.9 % Basophils % 1.0 % Neutrophils # 7.0 (1.6-8.9) K/mcL Lymphocytes # 2.8 (0.6-4.6) K/mcL Monocytes # 0.9 (0.0-1.3) K/mcL Eosinophils # 0.1 (0.0-0.6) K/mcL Basophils # 0.1 (0.0-0.2) K/mcL PT 28.9 H (9.4-12.1) Seconds INR 2.6 APTT 43.6 H (26.0-36.0) Seconds Sodium 139 (136-145) mEq/L Potassium 4.1 (3.5-4.5) mEq/L Chloride 105 (98-109) mEq/L Carbon Dioxide 27 (19-29) mEq/L BUN 26 H (7-20) mg/dL Creatinine 1.35 H (0.57-1.11) mg/dL Est GFR ( Amer) 46 L (> 60) Est GFR (Non-Af Amer) 38 L (> 60) BUN/Creatinine Ratio 19 (6-26) Glucose 167 H (70-99) mg/dL Calculated Osmolality 297 (280-300) Calcium 9.5 (8.6-10.8) mg/dL Troponin I (0-0.03) ng/mL TSH 43.930 H (0.350-4.840) mcIU/mL Urine Color (Yellow) Urine Clarity (Clear) Urine pH (5.0-8.0) pH Units Ur Specific [place] (1.010-1.025) Urine Protein (Neg-Trace) mg/dL Urine Glucose (UA) (Normal) mg/dL Urine Ketones (Negative) mg/dL Urine Blood (Negative) Urine Nitrite (Negative) Urine Bilirubin (Negative) Urine Urobilinogen (Normal) mg/dL Ur Leukocyte Esterase (Negative) Urine Microscopic RBC (0-3) per hpf Urine Microscopic WBC (0-3) per hpf Ur Squamous Epith Cells (None-Few) per lpf Urine Bacteria (None-Few) per hpf Hyaline Casts (None-Few) per lpf Ur Culture Indicated? (NO) 08/02/16 08/02/16 Range/Units 19:22 20:37 WBC (4.3-11.1) K/mcL RBC (3.82-4.97) M/mcL Hgb (11.5-15.4) g/dL Hct (35.3-44.9) % MCV (83.0-100.0) fL MCH (28.0-33.3) pg MCHC (31.6-35.5) g/dL RDW (11.5-14.5) % Plt Count (140-400) K/mcL MPV (9.4-12.4) fL Immature Gran % (0-4) % Seg Neutrophils % % Lymphocytes % % Monocytes % % Eosinophils % % Basophils % % Neutrophils # (1.6-8.9) K/mcL Lymphocytes # (0.6-4.6) K/mcL Monocytes # (0.0-1.3) K/mcL Eosinophils # (0.0-0.6) K/mcL Basophils # (0.0-0.2) K/mcL PT (9.4-12.1) Seconds INR APTT (26.0-36.0) Seconds Sodium (136-145) mEq/L Potassium (3.5-4.5) mEq/L Chloride (98-109) mEq/L Carbon Dioxide (19-29) mEq/L BUN (7-20) mg/dL Creatinine (0.57-1.11) mg/dL Est GFR ( Amer) (> 60) Est GFR (Non-Af Amer) (> 60) BUN/Creatinine Ratio (6-26) Glucose (70-99) mg/dL Calculated Osmolality (280-300) Calcium (8.6-10.8) mg/dL Troponin I 0.06 H* (0-0.03) ng/mL TSH (0.350-4.840) mcIU/mL Urine Color Yellow (Yellow) Urine Clarity Cloudy A (Clear) Urine pH 6.5 (5.0-8.0) pH Units Ur Specific [place] 1.026 H (1.010-1.025) Urine Protein >=1000 H (Neg-Trace) mg/dL Urine Glucose (UA) 250 H (Normal) mg/dL Urine Ketones Negative (Negative) mg/dL Urine Blood Small H (Negative) Urine Nitrite Negative (Negative) Urine Bilirubin Negative (Negative) Urine Urobilinogen Normal (Normal) mg/dL Ur Leukocyte Esterase Negative (Negative) Urine Microscopic RBC 5-15 H (0-3) per hpf Urine Microscopic WBC 5-15 H (0-3) per hpf Ur Squamous Epith Cells Many H (None-Few) per lpf Urine Bacteria Few (None-Few) per hpf Hyaline Casts None Seen (None-Few) per lpf Ur Culture Indicated? YES A (NO) - EKG Data EKG attestation: Yes I reviewed and interpreted this EKG. EKG results narrative: EKG shows A. fib with RVR at 160. Normal axis. There is minimal bilateral ST depression. No ST elevation. Lateral ST depression and elevated rate are new when compared with 12/10/2015. Attestation Statement - Attestation Attestation: I, Rebel Dobbs, examined this patient and my medical decision-making was reviewed with the SALESPERSON FLOOR COVERINGS/PA/Advanced Practice Nurse/Resident Physician. I agree with the documented findings, disposition and treatment plan as described except to the extent set forth below. 76-year-old female presents with concerns of chest pain and shortness of breath. Patient has a history of atrial fibrillation, uses Cardizem and Coumadin and has not missed any of her doses. Patient denies feeling palpitations in her chest. She had not initial EKG which showed Atrial fibrillation with RVR. Patient denies recent fever, chills, nausea, vomiting, diarrhea or other changes in her medications. Patient does state that she drank the coffee today however she is usually able to tolerate caffeinated drinks without difficulty. Patient heart rate improved after administration of Cardizem bolus. Patient started on Cardizem drip will be admitted to the hospital for further care and evaluation of elevated troponin and A. fib with RVR.
[2016-08-02 19:30] LABS: Basophils # 0.1 K/mcL (0.0-0.2); Eosinophils # 0.1 K/mcL (0.0-0.6); Eosinophils % 0.9 %; Hematocrit 50.8 % (35.3-44.9); Hemoglobin 16.5 g/dL (11.5-15.4); Immature Granulocytes % 1.8 % (0-4); Lymphocytes # 2.8 K/mcL (0.6-4.6); Lymphocytes % 25.3 %; Mean Corpuscular HGB Conc 32.5 g/dL (31.6-35.5); Mean Corpuscular Hemoglobin 28.8 pg (28.0-33.3); Mean Corpuscular Volume 88.7 fL (83.0-100.0); Mean Platelet Volume 10.2 fL (9.4-12.4); Monocytes # 0.9 K/mcL (0.0-1.3); Platelet Count 257 K/mcL (140-400); Red Blood Count 5.73 M/mcL (3.82-4.97); Red Cell Distribution Width 15.6 % (11.5-14.5)
[2016-08-02 19:34] LABS: INR 2.6; Prothrombin Time 28.9 Seconds (9.4-12.1)
[2016-08-02 19:37] LABS: Activated Partial Thrombo Time 43.6 Seconds (26.0-36.0)
[2016-08-02 19:43] LABS: Calcium 9.5 mg/dL (8.6-10.8); Potassium 4.1 mEq/L (3.5-4.5)
[2016-08-02 20:06] LABS: Thyroid Stimulating Hormone 43.93 mcIU/mL (0.350-4.840)
[2016-08-02 21:05] LABS: Bilirubin,Urine Negative (Negative); Blood,Urine Small (Negative); Clarity,Urine Cloudy (Clear); Color,Urine Yellow (Yellow); Glucose,Urine (UA) 250 mg/dL (Normal); Ketones,Urine Negative (Negative); Leukocyte Esterase,Urine Negative (Negative); Nitrite,Urine Negative (Negative); PH,Urine 6.5 pH Units (5.0-8.0); Protein,Urine >=1000 mg/dL (Neg-Trace); Specific Gravity,Urine 1.026 (1.010-1.025); Urobilinogen,Urine Normal (Normal)
[2016-08-02 21:06] LABS: Bacteria,Urine Few per hpf (None-Few); Hyaline Casts,Urine None Seen per lpf (None-Few); Squamous Epithelial Cell,Urine Many per lpf (None-Few)
[2016-08-02] MEDS ORDERED: Naloxone 0.4 MG/ML INJ IVP PRN (21:27)
[2016-08-02] MEDS ORDERED: *HR* Dextrose 50 % in Water (Syg) 50 ML SYRINGE IVP PRN (21:32)
[2016-08-02] MEDS ORDERED: Dextrose Gel 15 GM PO PRN ×2 (21:32)
[2016-08-02] MEDS ORDERED: D5% in Water 1,000 ML IVC PRN (21:32)
--- NOTE | 2016-08-02 21:42 | Internal Med History&Physical ---
Date of Encounter: 08/02/16 Time of Encounter: 21:00 Assessment and Plan (1) Atrial fibrillation with RVR Current visit: No Status: Resolved Patient has a history of A. fib. She is on Coumadin for anticoagulation, INR is therapeutic. - Continue Cardizem drip, convert to by mouth Cardizem tomorrow. - Increase carvedilol dose from 3.125 bid to 6.25 twice a day. - Continue close monitoring. - Mild elevated troponin possibly due to demand ischemia caused by A. fib RVR, will check 3 sets of troponin (expect mild elevated because of A Fib RVR) (2) Diabetes mellitus Current visit: No Status: Chronic Continue basal and sliding-scale insulin Qualifiers: Diabetes mellitus type: type 2 Diabetes mellitus complication status: with kidney complications Diabetes mellitus complication detail: with chronic kidney disease Diabetes mellitus assistant terminal manager insulin use: without assistant terminal manager use Chronic kidney disease stage: stage 3 (moderate) Qualified Code(s): E11.22 - Type 2 diabetes mellitus with diabetic chronic kidney disease; N18.3 - Chronic kidney disease, stage 3 (moderate) (3) Ascending aortic aneurysm Current visit: No Status: Chronic Patient is aware that she has aneurysm and she closely follow up with PCP as outpatient (4) Chronic kidney disease, stage 3 Current visit: No Status: Chronic Stable. Creatinine is at baseline level. (5) Hypothyroidism Current visit: Yes Status: Acute Patient has hypothyroidism because of previous reactive iodine use. TSH is not inhibited. We will increase Synthroid from 175 to 200 mg daily. 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 Continue home medication. Qualifiers: Hypertension type: essential hypertension Qualified Code(s): I10 - Essential (primary) hypertension (7) Coronary artery disease Current visit: No Status: Chronic Stable. Continue aspirin, beta chichi, and statin. Mild elevations of troponin probably due to demand ischemia of A. fib RVR Qualifiers: Coronary Disease-Associated Artery/Lesion type: [place] artery [place] vs. transplanted heart: absent[place] heart Associated angina: without angina Qualified Code(s): I25.10 - Atherosclerotic heart disease of [place] coronary artery without angina pectoris (8) DVT prophylaxis Current visit: Yes Status: Acute She is on Coumadin. Internal Medicine - H&P: HPI Chief complaint: SOB Admitted From: Home Plans for Post Hospital Care: Home History of present illness: Ms. Smith is a 76 year old female with history of diabetes, hypertension, hypothyroidism, aortic aneurysm, CAD S/P CABG, A. fib on coumadin, hypertension , presented to ER for sudden onset of shortness of breath and chest tightness. Patient said symptoms started from 11 AM. She thought it is due to her A Fib. Patient denies chest pain, nausea, diaphoresis. In ER, she was found a heart rate up to 170s, she was placed on Cardizem IV plus In the drip. Her heart rate get that down to 110s and her symptoms has improved when I saw her in the emergency room. I discussed the CODE STATUS with her. She is a full code. Past Med Surg Social Fam HX - Past Medical History Medical history: aortic aneurysm, atrial fibrillation, CHF, COPD, coronary artery disease, diabetes, GERD, hyperlipidemia, hypertension, renal disease Psychiatric history: no psych history - Past Surgical History Surgical History: angioplasty/stent, coronary bypass (CABG) - Social History Smoking Status: Former smoker Smokeless Tobacco Status: No Alcohol use: none Drug use: none - Family History Mother Living Status: Hx Family Cardiac Disorders: No Hx Family Respiratory Disorders: No Hx Family Cancer: No Hx Family GI Disorders: No Hx Family Endocrine Disorder: No Hx Family Neuromuscular Disorders: No Hx Family Neurologic Disorders: No Hx Family HEENT Disorders: No Hx Family Autoimmune Disorders: No Sister Hx Family Cardiac Disorders: Yes (NM) Internal Medicine - H&P: Meds Atorvastatin [Lipitor] 40 mg PO 05/03/15 [History] Magnesium Oxide [Magnesium] 400 mg PO QAM 05/03/15 [History] Potassium Chloride [K-Tab ER] 10 meq PO QAM 05/03/15 [History] Aspirin 81 mg PO QAM 07/06/15 [History] Insulin ASPART [Novolog Flexpen] 5 - 15 unit SQ TIDWM 07/06/15 [History] Warfarin [Coumadin] 2.5 mg PO SUMOTUWETHSA 08/24/15 [History] Ferrous Sulfate [Iron] 325 mg PO BID 04/16/16 [History] Insulin DETEMIR [Levemir Flextouch] 30 unit SQ HS 04/16/16 [History] Furosemide [Lasix] 40 mg PO DAILY #30 tab 04/19/16 [Rx] Levothyroxine [Synthroid] 175 mcg PO DAILY@0630 #30 tablet 04/19/16 [Rx] Carvedilol 3.125 mg PO BID 08/02/16 [History] Diltiazem HCl [Diltiazem 24Hr Cd] 360 mg PO DAILY 08/02/16 [History] Warfarin [Coumadin] 3.75 mg PO FR 08/02/16 [History] Allergies nitroglycerin Adverse Reaction (Verified 04/16/16 23:56) Nausea All Systems PM: A 10-system review of systems was performed and is negative for pertinent findings except as documented above in the HPI. - Constitutional Vitals: Temp Pulse Resp BP Pulse Ox 98.1 F 102 18 152/80 100 08/02/16 19:16 08/02/16 21:31 08/02/16 21:31 08/02/16 21:31 08/02/16 21:31 General appearance: Present: A&O X 3, no acute distress, answers questions appropriately - Head Head exam: Present: atraumatic, normocephalic - Eye Eye exam: Present: PERRL, conjuntiva pink, sclera anicteric Pupils: Present: PERRL - Neck Neck exam general surgery: Present: supple, trachea midline. Absent: lymphadenopathy - Respiratory Respiratory exam: Present: CTAB. Absent: accessory muscle use, rales, rhonchi, wheezes - Cardiovascular Cardiovascular exam: Present: irregular rhythm, +S1, +S2, tachycardia. Absent: diastolic murmur, gallop, rubs, systolic murmur - GI/Abdominal GI/Abdominal exam: Present: normal bowel sounds, soft, no peritoneal signs. Absent: distended, tenderness - Extremities Exam Extremities exam: Present: warm, radial pulses palpable and symetrical. Absent : calf tenderness, cyanotic, pedal edema - Neurological Exam Neurological exam: Present: CN II-XII intact, oriented X3, no focal deficits. Absent: pronater drift, facial droop, speech deficit - Skin Skin exam: Present: dry, intact Internal Med - H&P Results - Labs CBC & Chem 7: 08/02/16 19:22 08/02/16 19:22
[2016-08-02] MEDS ORDERED: 0.9 % Sodium Chloride 250 ML ONE (23:01)
[2016-08-02] MEDS: Insulin DETEMIR 100 UNIT/ML X5UNITS SQ SCH (23:06)
[2016-08-02] MEDS ORDERED: *HR* Warfarin 2.5 MG TABLET PO SCH (23:30)
[2016-08-03 01:30] LABS: Basophils # 0.1 K/mcL (0.0-0.2); Basophils % 0.7 %; Eosinophils # 0.1 K/mcL (0.0-0.6); Eosinophils % 0.7 %; Immature Granulocytes % 1.3 % (0-4); Lymphocytes # 1.9 K/mcL (0.6-4.6); Lymphocytes % 20.5 %; Mean Corpuscular HGB Conc 33.4 g/dL (31.6-35.5); Mean Corpuscular Hemoglobin 29.9 pg (28.0-33.3); Mean Corpuscular Volume 89.5 fL (83.0-100.0); Mean Platelet Volume 10.3 fL (9.4-12.4); Monocytes # 0.7 K/mcL (0.0-1.3); Neutrophils # 6.3 K/mcL (1.6-8.9); Platelet Count 180 K/mcL (140-400); Red Blood Count 4.58 M/mcL (3.82-4.97); Red Cell Distribution Width 15.3 % (11.5-14.5); Segmented Neutrophils % 68.8 %
[2016-08-03 01:31] LABS: Hemoglobin 13.7 g/dL (11.5-15.4)
[2016-08-03 01:35] LABS: INR 2.7; Prothrombin Time 30.4 Seconds (9.4-12.1)
[2016-08-03 01:46] LABS: Calcium 8.4 mg/dL (8.6-10.8); Magnesium 1.7 mg/dL (1.6-2.6); Potassium 4.6 mEq/L (3.5-4.5)
[2016-08-03] MEDS: Insulin LISPRO 300 UNITS/3 ML VIAL SQ SCH ×3 (07:25→16:47)
[2016-08-03] MEDS: Furosemide 40 MG TABLET PO SCH (08:41)
[2016-08-03] MEDS: Aspirin 81 MG TAB.CHEW PO SCH (08:41)
[2016-08-03] MEDS: Nystatin POWDER 30 GM BOTTLE TP SCH ×2 (08:41→22:08)
[2016-08-03] MEDS: Magnesium Oxide 400 MG TABLET PO SCH (08:41)
[2016-08-03] MEDS: Diltiazem CD (24hr) 180 MG CAPSULE PO SCH (08:41)
--- NOTE | 2016-08-03 12:05 | Event Note ---
Date of Encounter: 08/03/16 Time of Encounter: 11:45 - Cardiology Event Note Laboratory Tests 08/02/16 08/02/16 08/02/16 19:22 19:22 20:37 INR Troponin I 0.06 H* TSH 43.930 H Urine Blood Small H Ur Culture Indicated? YES A 08/03/16 08/03/16 08/03/16 01:21 01:21 05:22 INR 2.7 Troponin I 0.04 H* 0.05 H* TSH Urine Blood Ur Culture Indicated? Patient requested to have me notified of her admission. I last saw patient . Patient with known hx of afib most recently on Cardizem CD 360mg and I had added Coreg 3.125mg PO BID. She is on Coumadin managed by [facility] and denies any active bleeding or blood loss. Reports had epsiode of afib "acting up". Reports compliance with her meds and denies any infectious process. TSH elevated. Mild trops elevated. Per my note, we discussed possible stress test if needed. Hx of CAD with CABGx 1993. Last stress test September 2014. Patient has f/u with me in a few weeks. Please consult if needed. Patient agreeable to plan.
--- NOTE | 2016-08-03 13:33 | Internal Med Progress Note ---
Date of Encounter: 08/03/16 Time of Encounter: 13:31 - Assessment and plan (1) Atrial fibrillation with RVR Current Visit: Yes Status: Acute Assessment and plan: Was started on Cardizem drip last night, heart rate in 80s this morning. Cardizem drip has been tapered, and has been started on to oral Cardizem. Her carvedilol dose was increased from 3.125 to 6.25 twice a day. continue coumadin for AC. HR now at 101, will watch for today. possible dc tomm, she has f/u with [facility] Boston as OP coming up. (2) Diabetes mellitus Current Visit: No Status: Chronic Assessment and plan: One episode of hypoglycemia with fingerstick of 44 this morning. She is on Levemir at night and Humalog with meals. Will decrease the dose of Levemir and will continue low dose sliding scale only. Qualifiers: Diabetes mellitus type: type 2 Diabetes mellitus complication status: with kidney complications Diabetes mellitus complication detail: with chronic kidney disease Diabetes mellitus brand ambassador insulin use: without brand ambassador use Chronic kidney disease stage: stage 3 (moderate) Qualified Code(s): E11.22 - Type 2 diabetes mellitus with diabetic chronic kidney disease; N18.3 - Chronic kidney disease, stage 3 (moderate) (3) Chronic kidney disease, stage 3 Current Visit: No Status: Chronic (4) Hypothyroidism Current Visit: Yes Status: Acute Assessment and plan: will get free T3 and T4, has h/o radioactive ablation of the thyroid gland. TSh elevated at >40. if T3 and t4 low, will increase the dose of synthroid. 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 fib with RVR. Started on Cardizem drip, heart rate seems to be controlled at this time. Denies any chest pain, shortness of breath or palpitations. Requesting to be seen by Franklin Boston who she sees for cardiology - Constitutional Vitals: Temp Pulse Resp BP Pulse Ox 98.2 F 101 16 134/74 94 08/03/16 11:00 08/03/16 11:00 08/03/16 11:00 08/03/16 11:00 08/03/16 11:00 General appearance: Present: A&O X 3, no acute distress, answers questions appropriately Exam: neck- Supple. Chest bilaterally clear, no added sounds. CVS S1-S2, no murmurs rubs or gallops. Abdomen soft, nontender, bowel sounds are present. Extremities no edema neuro- no focal defecits Internal Medicine: Result - Labs CBC & Chem 7: 08/03/16 01:21 08/03/16 01:21 Labs: Short CBC 08/03/16 Range/Units 01:21 WBC 9.1 (4.3-11.1) K/mcL Hgb 13.7 D (11.5-15.4) g/dL Hct 41.0 (35.3-44.9) % Plt Count 180 (140-400) K/mcL Neutrophils # 6.3 (1.6-8.9) K/mcL BMP 08/03/16 01:21 Sodium 142 Potassium 4.6 H Chloride 108 Carbon Dioxide 30 H BUN 26 H Creatinine 1.44 H Glucose 232 H Calcium 8.4 L Cardiac Enzymes 08/03/16 08/03/16 Range/Units 01:21 05:22 Troponin I 0.04 H* 0.05 H* (0-0.03) ng/mL - ABG Interpretation ABG results: PT/INR, D-dimer PT 30.4 Seconds (9.4-12.1) H 08/03/16 01:21 Consult Discharge Plan - Plan Referrals: Blaire Olivo, [employer]ER [Primary Care Provider] -
--- NOTE | 2016-08-03 16:55 | Electrocardiograph Report ---
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
--- NOTE | 2016-08-03 16:58 | Electrocardiograph Report ---
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
[2016-08-03] MEDS ORDERED: *HR* Warfarin 2.5 MG TABLET PO SCH ×2 (18:00)
[2016-08-03] MEDS ORDERED: Warfarin perPT PO PRN (18:00)
[2016-08-03] MEDS ORDERED: Insulin LISPRO 300 UNITS/3 ML VIAL SQ SCH (21:00)
[2016-08-03] MEDS: Insulin DETEMIR 100 UNIT/ML X5UNITS SQ SCH (22:08)
[2016-08-03] MEDS: Acetaminophen 325 MG TABLET PO PRN (22:24)
[2016-08-04] MEDS: Acetaminophen 325 MG TABLET PO PRN (04:42)
[2016-08-04 05:46] LABS: INR 2.2; Prothrombin Time 24.3 Seconds (9.4-12.1)
[2016-08-04 06:17] LABS: Triiodothyronine (T3) Free 1.15 pg/mL (1.71-3.71)
[2016-08-04] MEDS: Insulin LISPRO 300 UNITS/3 ML VIAL SQ SCH ×2 (07:57→12:09)
[2016-08-04] MEDS: Diltiazem CD (24hr) 180 MG CAPSULE PO SCH (09:44)
[2016-08-04] MEDS: Furosemide 40 MG TABLET PO SCH (09:45)
[2016-08-04] MEDS: Aspirin 81 MG TAB.CHEW PO SCH (09:45)
[2016-08-04] MEDS: Magnesium Oxide 400 MG TABLET PO SCH (09:45)
[2016-08-04] MEDS: Nystatin POWDER 30 GM BOTTLE TP SCH (09:57)
[2016-08-04 11:52] LABS: Calcium 8.4 mg/dL (8.6-10.8); Potassium 3.9 mEq/L (3.5-4.5)
--- NOTE | 2016-08-04 14:26 | Discharge Summary ---
Date of Encounter: 08/04/16 Time of Encounter: 14:24 - Discharge Diagnosis (1) Atrial fibrillation with RVR Priority: Primary Status: Acute (2) Diabetes mellitus Priority: Secondary Status: Chronic Qualifiers: Diabetes mellitus type: type 2 Diabetes mellitus complication status: with kidney complications Diabetes mellitus complication detail: with chronic kidney disease Diabetes mellitus [facility] insulin use: without [facility] use Chronic kidney disease stage: stage 3 (moderate) Qualified Code(s): E11.22 - Type 2 diabetes mellitus with diabetic chronic kidney disease; N18.3 - Chronic kidney disease, stage 3 (moderate) (3) Chronic kidney disease, stage 3 Priority: Secondary Status: Chronic (4) Hypothyroidism Priority: Secondary Status: Acute Qualifiers: Hypothyroidism type: due to medication Qualified Code(s): 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 - Discharge Medications Prescriptions: Carvedilol [Coreg] 6.25 mg PO BIDWM #60 tablet Home Medications: Atorvastatin [Lipitor] 40 mg PO HS 05/03/15 [History] Magnesium Oxide [Magnesium] 400 mg PO QAM 05/03/15 [History] Potassium Chloride [K-Tab ER] 10 meq PO QAM 05/03/15 [History] Aspirin 81 mg PO QAM 07/06/15 [History] Insulin ASPART [Novolog Flexpen] 5 - 15 unit SQ TIDWM 07/06/15 [History] Warfarin [Coumadin] 2.5 mg PO SUMOTUWETHSA 08/24/15 [History] Ferrous Sulfate [Iron] 325 mg PO BID 04/16/16 [History] Insulin DETEMIR [Levemir Flextouch] 30 unit SQ HS 04/16/16 [History] Furosemide [Lasix] 40 mg PO DAILY #30 tab 04/19/16 [Rx] Levothyroxine [Synthroid] 175 mcg PO DAILY@0630 #30 tablet 04/19/16 [Rx] Diltiazem HCl [Diltiazem 24Hr Cd] 360 mg PO DAILY 08/02/16 [History] Warfarin [Coumadin] 3.75 mg PO FR 08/02/16 [History] Carvedilol [Coreg] 6.25 mg PO BIDWM #60 tablet 08/04/16 [Rx] Allergies/Adverse Reactions: Allergies nitroglycerin Adverse Reaction (Verified 04/16/16 23:56) Nausea Date of admission: 08/02/16 21:25 Primary care physician: Blaire Olivo Discharging clinician: Nikos Bardales Anticipated date of discharge: 08/04/16 - Patient Status Disposition: Home, Self-Care Condition: Fair Functional capacity at discharge: independent ambulation Overall status at discharge: patient is back to baseline - Discharge Instructions Instructions: Atrial Fibrillation (DC), Hypothyroidism (DC) Follow Up With: Blaire Olivo, [employer]CH[employer]ISING COORDINATOR [Primary Care Provider] - 08/11/16 10:30 am - Diet and Activity Activity: resume usual activities as tolerated Diet: advance to your usual diet Interval History: Ms. Smith is a 76 year old female with history of diabetes, hypertension, hypothyroidism, aortic aneurysm, CAD S/P CABG, A. fib on coumadin, hypertension , presented to ER for sudden onset of shortness of breath and chest tightness. Patient said symptoms started from 11 AM. She thought it is due to her A Fib. Patient denies chest pain, nausea, diaphoresis. In ER, she was found a heart rate up to 170s, she was placed on Cardizem IV drip. that improved her HR, her other lab work was grossly normal, the carvedilol was increased from 3.125 to 6.25 mg bid and the cardizem oral was continued. cardizem drip was dc and her HR remained stable. [facility] is being dc in stable condition and will f/u with deb Boston as OP. Hospital course: Ms. Smith is a 76 year old female Time spent discussing smoking cessation with patient: more than 10 minutes - Time Spent with Patient Total time spent providing and/or coordinating discharge services: Greater than 30 minutes - Constitutional Vitals: Temp Pulse Resp BP Pulse Ox 98.5 F 76 16 124/79 95 08/04/16 11:01 08/04/16 11:01 08/04/16 11:01 08/04/16 11:01 08/04/16 11:01 General appearance: Present: A&O X 3, no acute distress, answers questions appropriately Exam: - Head Head exam: Present: atraumatic, normocephalic - Eye Eye exam: Present: PERRL, conjuntiva pink, sclera anicteric Pupils: Present: PERRL - Neck Neck exam general surgery: Present: supple, trachea midline. Absent: lymphadenopathy - Respiratory Respiratory exam: Present: CTAB. Absent: accessory muscle use, rales, rhonchi, wheezes - Cardiovascular Cardiovascular exam: Present: irregular rhythm, +S1, +S2, Absent: diastolic murmur, gallop, rubs, systolic murmur - GI/Abdominal GI/Abdominal exam: Present: normal bowel sounds, soft, no peritoneal signs. Absent: distended, tenderness - Extremities Exam Extremities exam: Present: warm, radial pulses palpable and symetrical. Absent : calf tenderness, cyanotic, pedal edema - Neurological Exam Neurological exam: Present: CN II-XII intact, oriented X3, no focal deficits. Absent: pronater drift, facial droop, speech deficit - Skin Skin exam: Present: dry, intact
[2016-08-04 15:14] VITALS: BP 157/84
[2016-08-06] MEDS ORDERED: *HR* Warfarin 2.5 MG TABLET PO SCH (18:00)
== END 2016-08-04 16:40 | disposition home or self-care (01) | DRG 309 ==
LOC: EMEROO 19:09 → 2ANU 21:25
PROVIDERS: ADMIT Internal Medicine; ATTEND Internal Medicine

== ENCOUNTER 2017-04-04 08:18 | Inpatient (IN) ==
--- NOTE | 2017-04-04 09:02 | Emergency Department Note ---
Disposition Clinical Impression: Dyspnea Disposition: Home, Self-Care Condition: Fair Referrals: Blaire Olivo, MARY [Primary Care Provider] - SOB HPI - General Chief Complaint: ED Shortness of Breath/Dyspnea Stated Complaint: DEANNA/retaining fluid Time Seen by Provider: 04/04/17 08:20 Source: patient Mode of arrival: ambulatory Limitations: no limitations Nursing Notes Reviewed: Yes Vital Signs Reviewed: Yes - History of Present Illness 76-year-old female presents emergency Department with concerns of increasing dyspnea. Patient states initially her dyspnea occurred with exertion however now it occurs with rest. Patient denies associated diaphoresis or nausea or vomiting. Patient has noticed increased swelling in the bilateral lower extremities over the past few days. She has a history of congestive heart failure and takes Lasix 40 mg once a day. Unable to recall her last stress test or cardiac evaluation. Denies fever, chills, cough, abdominal pain, diarrhea. Patient takes Coumadin and had an elevated INR level last week of 4.6 but follows closely with her primary care physician. - Related Data Home Medications Medication Instructions Recorded Confirmed Atorvastatin [Lipitor] 40 mg PO HS 05/03/15 08/02/16 Magnesium Oxide [Magnesium] 400 mg PO QAM 05/03/15 08/02/16 Potassium Chloride [K-Tab ER] 10 meq PO QAM 05/03/15 08/02/16 Aspirin 81 mg PO QAM 07/06/15 08/02/16 Insulin ASPART [Novolog Flexpen] 5 - 15 unit SQ TIDWM 07/06/15 08/02/16 Warfarin [Coumadin] 2.5 mg PO SUMOTUWETHSA 08/24/15 08/02/16 Ferrous Sulfate [Iron] 325 mg PO BID 04/16/16 08/02/16 Insulin DETEMIR [Levemir Flextouch] 30 unit SQ HS 04/16/16 08/02/16 Diltiazem HCl [Diltiazem 24Hr Cd] 360 mg PO DAILY 08/02/16 08/02/16 Warfarin [Coumadin] 3.75 mg PO FR 08/02/16 08/02/16 Previous Rx's Medication Instructions Recorded Furosemide [Lasix] 40 mg PO DAILY #30 tab 04/19/16 Levothyroxine [Synthroid] 175 mcg PO DAILY@0630 #30 tablet 04/19/16 Carvedilol [Coreg] 6.25 mg PO BIDWM #60 tablet 08/04/16 Allergies Allergy/AdvReac Type Severity Reaction Status Date / Time nitroglycerin AdvReac Nausea Verified 04/04/17 08:22 All systems ED: reviewed and negative except as stated. Review of Systems: As Per HPI Constitutional: Denies: fever, chills Cardiovascular: Denies: chest pain Respiratory: Reports: dyspnea. Denies: cough, wheezes, hemoptysis Gastrointestinal: Denies: abdominal pain, nausea, vomiting, diarrhea Past Medical History - Past Medical History Attestation: Yes The following information was validated with the patient. Source: patient Medical history: Reports: aortic aneurysm, atrial fibrillation, CHF, COPD, coronary artery disease, diabetes, GERD, hyperlipidemia, hypertension, myocardial infarction, renal disease Surgical history: Reports: angioplasty/stent, coronary bypass (CABG) Psychiatric history: Reports: no psych history GTA history: Reports: no GTA history, other - Social History Smoking Status: Former smoker Smokeless Tobacco Status: No Alcohol use: Reports: none Drug use: Reports: none Physical Exam General: Alert and in no acute distress Skin: Warm, dry, intact Head: Normocephalic and atraumatic Neck: Supple, trachea midline and no tenderness Cardiovascular: RRR, no murmur, normal perfusion Respiratory: CTAB, no wheezing, cough, or respiratory distress Musculoskeletal: Normal strength, no tenderness to palpation of the extremities. Pulses equal in bilateral upper and lower extremities. +2 pitting edema in the bilateral lower extremities. GI: Soft, nontender, nondistended. Bowel sounds present Neuro: A&O to person, place, time and situation. No focal deficits noted on exam Psychiatric: cooperative and appropriate mood and affect. - General Limitations: no limitations General appearance: alert Course Vital Signs Temperature 98.5 F 04/04/17 08:19 Pulse Rate 84 04/04/17 08:19 Respiratory Rate 18 04/04/17 08:19 Blood Pressure 146/84 04/04/17 08:19 O2 Sat by Pulse Oximetry 94 04/04/17 08:19 Temperature 98.5 F 04/04/17 08:19 Pulse Rate 84 04/04/17 08:19 Respiratory Rate 18 04/04/17 08:19 Blood Pressure 146/84 04/04/17 08:19 O2 Sat by Pulse Oximetry 94 04/04/17 08:28 Oxygen Delivery Oxygen Delivery Room Air Shortness of Breath/Dyspnea - Medical Records Medical records reviewed: Yes I reviewed the patient's medical records. - Lab Data Lab results reviewed: Yes I reviewed the patient's lab results. - Radiology Data Radiology results reviewed: Yes I reviewed the patient's radiology results. - EKG Data EKG attestation: Yes I reviewed and interpreted this EKG. EKG results narrative: ECG - interpreted by ED physician. Rate of 79, read as atrial paced however it has a poor baseline. It does not look significantly changed from previous EKG and I do not see evidence of acute STEMI.
[2017-04-04 09:03] LABS: Basophils # 0.1 K/mcL (0.0-0.2); Basophils % 0.7 %; Eosinophils % 0.4 %; Hemoglobin 12.5 g/dL (11.5-15.4); Immature Granulocytes % 1.1 % (0-4); Lymphocytes # 1.4 K/mcL (0.6-4.6); Lymphocytes % 18.6 %; Mean Corpuscular HGB Conc 31.3 g/dL (31.6-35.5); Mean Corpuscular Hemoglobin 26.9 pg (28.0-33.3); Mean Corpuscular Volume 86.2 fL (83.0-100.0); Monocytes # 0.8 K/mcL (0.0-1.3); Monocytes % 10.9 %; Platelet Count 260 K/mcL (140-400); Red Blood Count 4.64 M/mcL (3.82-4.97); Red Cell Distribution Width 15.1 % (11.5-14.5); Segmented Neutrophils % 68.3 %
[2017-04-04 09:08] LABS: INR 2.2; Prothrombin Time 24.1 Seconds (9.4-12.1)
[2017-04-04 09:10] LABS: Activated Partial Thrombo Time 37.9 Seconds (26.0-36.0)
[2017-04-04] MEDS ORDERED: Furosemide 40 MG/4 ML VIAL IVP ONE (09:54)
[2017-04-04] MEDS ORDERED: Naloxone 0.4 MG/ML INJ IVP PRN (10:34)
--- NOTE | 2017-04-04 10:37 | Event Note ---
Date of Encounter: 04/04/17 Time of Encounter: 10:36 Patient seen and examined with nurse practitioner. Execute decompensated congestive heart failure due to diastolic dysfunction. We will start the patient on lasix 40 mg IV BID. Patient has a 3.7 cm ascending aortic aneurysm. last echocardiograms done 6 months ago, will repeat echocardiogram to evaluate size of aortic root. Patient is full code.
[2017-04-04] MEDS ORDERED: *HR* HYDROcodone/Acet 5/325 mg TABLET PO PRN (10:40)
[2017-04-04] MEDS ORDERED: Acetaminophen 325 MG TABLET PO PRN (10:40)
[2017-04-04] MEDS ORDERED: Ondansetron 4 MG/2 ML VIAL IVP PRN (10:40)
[2017-04-04] MEDS ORDERED: Dextrose Gel 15 GM/37.5 ML TUBE PO PRN ×2 (10:54)
[2017-04-04] MEDS ORDERED: *HR* Dextrose 50 % in Water (Syg) 50 ML SYRINGE IVP PRN (10:54)
[2017-04-04] MEDS ORDERED: D5% in Water 1,000 ML IVC PRN (10:54)
[2017-04-04 10:57] LABS: Calcium 9.1 mg/dL (8.6-10.3); Potassium 3.8 mEq/L (3.5-5.1)
--- NOTE | 2017-04-04 11:04 | Internal Med History&Physical ---
Date of Encounter: 04/04/17 Time of Encounter: 10:15 Assessment and Plan (1) Acute exacerbation of CHF (congestive heart failure) Current visit: Yes Status: Acute Acute exacerbation of CHF. Pt. states she takes 40 mg PO lasix daily and is compliant. Reports she has been taking in more PO fluids recently. Reports SOB/ dyspnea over past week which worsened yesterday. Will hold PO lasix and administer 40 mg IVP lasix BID. 1.5L daily fluid restriction. Echocardiogram ordered. Monitor I&O and daily weight. Falls/safety precautions d/t unsteadiness. PT/OT consults ordered. Supplemental O2 w/titration and SpO2 monitoring Continuous cardiac telemetry. Pt. and f/u labs to be monitored. Pt. discussed w/Dr. Mnan who agrees w/plan of care. Pt is high risk for further morbidity based on current CHF exacerbation, history of atrial fibrillation and previous SD, current respiratory distress, history, and risk factors. Inpatient. Qualifiers: Congestive heart failure type: diastolic Qualified Code(s): I50.33 - Acute on chronic diastolic (congestive) heart failure (2) HTN (hypertension) Current visit: Yes Status: Chronic Hx of chronic HTN. Monitor pt. and VS. continue patient's Coreg and Cozaar. Qualifiers: Hypertension type: essential hypertension Qualified Code(s): I10 - Essential (primary) hypertension (3) HLD (hyperlipidemia) Current visit: Yes Status: Chronic Hx of chronic HLD. Lipid panel in a.m. labs. Continue pts. Lipitor. Qualifiers: Hyperlipidemia type: pure hypercholesterolemia Qualified Code(s): E78.00 - Pure hypercholesterolemia, unspecified; E78.0 - Pure hypercholesterolemia (4) GERD (gastroesophageal reflux disease) Current visit: Yes Status: Chronic Hx of chronic GERD. IVP Zofran 4 mg Q8 for N/V. Continue pts. PO Zantac. Qualifiers: Esophagitis presence: esophagitis presence not specified Qualified Code(s) : K21.9 - Gastro-esophageal reflux disease without esophagitis (5) Hypothyroidism Current visit: Yes Status: Chronic Hx of hypothyroidism. Free T4 and TSH ordered in a.m. labs. Continue patient' s Synthroid. Qualifiers: Hypothyroidism type: unspecified Qualified Code(s): E03.9 - Hypothyroidism , unspecified (6) Ascending aortic aneurysm Current visit: Yes Status: Chronic Hx of 3.7 cm ascending aortic aneurysm w/o rupture. Last Echocardiogram on 10/11. Repeat echocardiogram to assess aortic root and diastolic function d/t current CHF exacerbation. (7) Atrial fibrillation Current visit: Yes Status: Chronic Hx of chronic paroxysmal atrial fibrillation. Continuous cardiac telemetry. Continue patient's Coumadin w/pharmacy dosing and Cardizem. Qualifiers: Atrial fibrillation type: paroxysmal Qualified Code(s): I48.0 - Paroxysmal atrial fibrillation (8) Chronic kidney disease, stage 3 Current visit: Yes Status: Chronic Hx of CKD. Pt. is currently stage 3. Will use IV fluids judiciously if warranted d/t current CKD and CHF exacerbation. Avoid nephrotoxins. (9) Coronary artery disease Current visit: Yes Status: Chronic Hx of chronic CAD w/previous SD in 1993 resulting in stent placement and CABG. Patient also has history of chronic atrial fibrillation. Will continue patient' s Coumadin w/pharmacy dosing, aspirin therapy, Lipitor, Coreg, Cardizem, and Cozaar. Qualifiers: Coronary Disease-Associated Artery/Lesion type: [place] artery [place] vs. transplanted heart: [place] heart Associated angina: without angina Qualified Code(s): I25.10 - Atherosclerotic heart disease of [place] coronary artery without angina pectoris (10) Diabetes mellitus Current visit: Yes Status: Chronic Hx of chronic disease control with insulin. Will continue patient's at bedtime insulin and add low-dose correction sliding scale insulin with hypoglycemic protocol. BG checks before meals at bedtime. A1c in a.m. labs. Qualifiers: Diabetes mellitus type: type 2 Diabetes mellitus complication status: with kidney complications Diabetes mellitus complication detail: with chronic kidney disease Diabetes mellitus care home insulin use: without moth exterminator use Chronic kidney disease stage: stage 3 (moderate) Qualified Code(s): E11.22 - Type 2 diabetes mellitus with diabetic chronic kidney disease; N18.3 - Chronic kidney disease, stage 3 (moderate) (11) DVT prophylaxis Current visit: Yes Status: Acute Continue patient's Coumadin with pharmacy dosing for DVT prophylaxis. Monitor patient for signs of bleeding. Internal Medicine - H&P: HPI Chief complaint: SOB/dyspnea Admitted From: Emergency Dept Plans for Post Hospital Care: Home History of present illness: Ms. Smith is a 76 year old female with medical hx of 3.7 cm ascending aortic aneurysm, atrial fibrillation, CHF, COPD, CAD, diabetes controlled with insulin, GERD, HLD, HTN, previous myocardial infarction in 1993, and CKG presents from the ED with chief complaint of shortness of breath and dyspnea for the past week with worsening symptoms over the past 24 hours. Patient reports she takes by mouth Lasix 40 mg daily and is compliant but also states she has been taking in more by mouth fluids. Patient states she is anticoagulated with Coumadin due to her current atrial fibrillation. Patient reports unsteadiness w/ambulation but denies recent illness, fever, chills, nausea, vomiting, changes in vision, headache, chest pain, palpitations, abdominal pain, diarrhea, constipation, numbness, tingling, dizziness, lightheadedness, pre-syncope, or syncope. Past Med Surg Social Fam HX - Past Medical History Source: patient, old records reviewed Medical history: aortic aneurysm (3.7 cm ascending), atrial fibrillation, CHF, COPD, coronary artery disease, diabetes (Controlled w/insulin), GERD, hyperlipidemia, hypertension, myocardial infarction (1993 w/stent placement but pt. unsure how many), renal disease, thyroid disease Psychiatric history: no psych history - Past Surgical History Surgical History: angioplasty/stent, coronary bypass (CABG) - Social History Smoking Status: Former smoker Packs per day: 1 PPD - Reports quitting 23 years ago Smokeless Tobacco Status: No Alcohol use: none Drug use: none Occupational status: employed Current living situation: Home Activity Level: Independent ambulation Recent Out of Country Travel Within the Last 8 Weeks: No Exposure or Possible Exposure to Illness During Travel: No - Family History Mother Race: Family Member Ethnicity: Non- Living Status: Age at : 89 Cause of : Renal failure Sister Race: Family Member Ethnicity: Non- Living Status: Still Living Hx Family Cardiac Disorders: Yes (SD) Father History Unknown: Yes Race: Family Member Ethnicity: Non- Living Status: Internal Medicine - H&P: Meds Atorvastatin [Lipitor] 40 mg PO HS 05/03/15 [History] Magnesium Oxide [Magnesium] 400 mg PO QAM 05/03/15 [History] Potassium Chloride [K-Tab ER] 10 meq PO QAM 05/03/15 [History] Aspirin 81 mg PO QAM 07/06/15 [History] Insulin ASPART [Novolog Flexpen] 5 - 15 unit SQ TIDWM 07/06/15 [History] Warfarin [Coumadin] 2.5 mg PO SUMOTUWETHSA 08/24/15 [History] Insulin DETEMIR [Levemir Flextouch] 30 unit SQ HS 04/16/16 [History] Diltiazem HCl [Diltiazem 24Hr Cd] 360 mg PO DAILY 08/02/16 [History] Warfarin [Coumadin] 3.75 mg PO FR 08/02/16 [History] Carvedilol [Coreg] 25 mg PO BID 04/04/17 [History] Cholecalciferol (Vitamin D3) [Vitamin D] 50,000 unit PO SA 04/04/17 [History] Levothyroxine Sodium [Levo-T] 200 mcg PO DAILY 04/04/17 [History] Liothyronine Sodium [Cytomel] 5 mcg PO DAILY 04/04/17 [History] Liraglutide [Victoza 2-Elisa] 1.2 mg SQ DAILY 04/04/17 [History] Losartan [Cozaar] 25 mg PO BID 04/04/17 [History] Ranitidine HCl [Zantac] 150 mg PO BID 04/04/17 [History] 3 Allergy/AdvReac Type Severity Reaction Status Date / Time nitroglycerin AdvReac Nausea Verified 04/04/17 10:10 All Systems PM: A 10-system review of systems was performed and is negative for pertinent findings except as documented above in the HPI. - Constitutional Constitutional: no chills, no fever(s), no night sweats - EENT Eyes: no change in vision, no discharge, no pain, no photophobia Ears: no ear discharge, no ear pain, no tinnitus Nose, mouth and throat: no dysphagia, no nasal discharge, no neck pain, no sore throat - Breasts Breasts: as per HPI - Cardiovascular Cardiovascular ROS IM: as per HPI, dyspnea, dyspnea on exertion, edema ( Bilateral edema of LEs), irregular heart rhythm (Chronic afib), no chest pain, no diaphoresis, no lightheadedness, no palpitations, no syncope - Respiratory Respiratory: as per HPI, dyspnea, dyspnea on exertion, no cough, no wheezing, no excessive phlegm production - Gastrointestinal Gastrointestinal: no abdominal pain, no diarrhea, no hematemesis, no hematochezia, no melena, no nausea, no vomiting - Genitourinary Genitourinary: no change in urinary stream, no dysuria, no flank pain, no hematuria Menstruation: as per HPI - Musculoskeletal Musculoskeletal ROS IM: no numbness, no tingling - Integumentary Integumentary IM: no rash, no unusual bruising - Neurological Neurological ROS: no confusion, no convulsions, no focal weakness, no numbness, no tingling, no tremor(s) - Psychiatric Psychiatric: as per HPI - Endocrine Endocrine IM: as per HPI - Hematologic/Lymphatic Hematologic/Lymphatic: no easy bruising - Allergic/Immunologic Allergic/Immunologic: as per HPI - Constitutional Vitals: Temp Pulse Resp BP Pulse Ox 98.5 F 77 20 147/71 93 04/04/17 08:19 04/04/17 09:16 04/04/17 10:32 04/04/17 10:32 04/04/17 09:16 General appearance: Present: cooperative, mild distress (Respiratory), A&O X 3, pleasant, obese, answers questions appropriately - Head Head exam: Present: atraumatic, normocephalic - Eye Eye exam: Present: PERRL, conjuntiva pink, sclera anicteric Pupils: Present: PERRL - ENT ENT exam: Present: normal exam, normal external ear exam - Neck Neck exam general surgery: Present: normal inspection, supple, trachea midline. Absent: lymphadenopathy - Respiratory Respiratory exam: Present: accessory muscle use, decreased breath sounds - Cardiovascular Cardiovascular exam: Present: irregular rhythm (Atrial fibrillation) - GI/Abdominal GI/Abdominal exam: Present: normal bowel sounds, soft, no peritoneal signs. Absent: distended, tenderness - Rectal Rectal exam: Present: deferred - Additional comments: exam deferred. - Extremities Exam Extremities exam: Present: pedal edema (1+ pitting edema in bilateral LEs), warm , radial pulses palpable and symmetrical. Absent: calf tenderness, cyanotic - Back Exam Back exam: Present: normal inspection - Neurological Exam Neurological exam: Present: CN II-XII intact, oriented X3, no focal deficits. Absent: pronater drift, facial droop, speech deficit - Psychiatric Psychiatric exam: Present: normal affect, normal mood - Skin Skin exam: Present: dry, intact Internal Med - H&P Results - Labs CBC & Chem 7: 04/04/17 08:43 04/04/17 08:43 - EKG Data Prior EKG available for review: yes EKG comments: 04/04/17 11:16 EKG dated 01/01/17 shows electronic atrial pacemaker, electronic ventricular pacemaker, abnormal rhythm ECG. EKG dated 04/04/17 shows electronic atrial pacemaker, marked right axis deviation, moderate intraventricular conduction delay, minimal ST depression, abnormal ECG. - Diagnostic Studies Chest x-ray Additional comments: Impressions Chest X-Ray 04/04/17 08:25 IMPRESSION: 1. Cardiomegaly with vascular congestion and small right pleural effusion. D/ / Lukas Boo MD / Lukas Boo MD Interpreting Provider: Lukas Boo MD
[2017-04-04 11:49] LABS: Albumin 3.2 g/dL (3.5-5.7); Albumin/Globulin Ratio 1.3 (1.1-2.2); Bilirubin,Total 0.7 mg/dL (0.3-1.0); Globulin 2.5 g/dL (2.4-3.5); Total Protein 5.7 g/dL (6.4-8.9)
[2017-04-04] MEDS: Insulin LISPRO 300 UNITS/3 ML VIAL SQ SCH ×3 (11:51→21:17)
--- NOTE | 2017-04-04 12:53 | Electrocardiograph Report ---
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
[2017-04-04] MEDS: Furosemide 40 MG/4 ML VIAL IVP SCH (17:21)
[2017-04-04] MEDS ORDERED: *HR* Warfarin 2.5 MG TABLET PO ONE (18:00)
[2017-04-04] MEDS ORDERED: Warfarin perPT PO PRN (18:00)
[2017-04-04] MEDS ORDERED: Famotidine 20 MG TABLET PO SCH (21:00)
[2017-04-04] MEDS ORDERED: Insulin DETEMIR 100 UNIT/ML X5UNITS SQ SCH (21:00)
[2017-04-05 06:32] LABS: Basophils # 0.1 K/mcL (0.0-0.2); Basophils % 0.7 %; Eosinophils # 0.1 K/mcL (0.0-0.6); Hematocrit 36.2 % (35.3-44.9); Hemoglobin 11.3 g/dL (11.5-15.4); Immature Granulocytes % 0.8 % (0-4); Lymphocytes # 1.6 K/mcL (0.6-4.6); Lymphocytes % 21.4 %; Mean Corpuscular HGB Conc 31.2 g/dL (31.6-35.5); Mean Corpuscular Hemoglobin 27.2 pg (28.0-33.3); Mean Corpuscular Volume 87.2 fL (83.0-100.0); Mean Platelet Volume 10.4 fL (9.4-12.4); Monocytes % 13.3 %; Neutrophils # 4.6 K/mcL (1.6-8.9); Platelet Count 218 K/mcL (140-400); Red Blood Count 4.15 M/mcL (3.82-4.97); Red Cell Distribution Width 15.2 % (11.5-14.5); Segmented Neutrophils % 62.8 %
[2017-04-05 06:48] LABS: Hemoglobin A1C 6.6 %
[2017-04-05] MEDS: Diltiazem CD (24hr) 180 MG CAPSULE PO SCH (08:57)
[2017-04-05] MEDS: Aspirin 81 MG TAB.CHEW PO SCH (08:57)
[2017-04-05] MEDS: Famotidine 20 MG TABLET PO SCH (08:58)
[2017-04-05] MEDS: Furosemide 40 MG/4 ML VIAL IVP SCH (08:58)
[2017-04-05] MEDS: Magnesium Oxide 400 MG TABLET PO SCH (08:58)
[2017-04-05] MEDS: Insulin LISPRO 300 UNITS/3 ML VIAL SQ SCH ×3 (09:17→17:22)
[2017-04-05 09:29] LABS: INR 3.2; Prothrombin Time 35.6 Seconds (9.4-12.1)
[2017-04-05 10:08] LABS: Albumin 2.8 g/dL (3.5-5.7); Albumin/Globulin Ratio 1.3 (1.1-2.2); Bilirubin,Total 0.4 mg/dL (0.3-1.0); Calcium 8.5 mg/dL (8.6-10.3); Chol/HDL Ratio 2.9 (0-4.9); Globulin 2.1 g/dL (2.4-3.5); Magnesium 1.8 mg/dL (1.6-2.6); Potassium 3.6 mEq/L (3.5-5.1); Total Protein 4.9 g/dL (6.4-8.9)
[2017-04-05 10:14] LABS: Thyroid Stimulating Hormone 0.267 mcIU/mL (0.340-5.600)
--- NOTE | 2017-04-05 16:22 | Internal Med Progress Note ---
Date of Encounter: 04/05/17 Time of Encounter: 11:35 - Assessment and plan (1) Acute exacerbation of CHF (congestive heart failure) Current Visit: Yes Status: Acute Assessment and plan: Improving. Patient has responded well to Lasix. We will transition to oral Lasix. Continue twice-daily dosing. Echocardiogram shows EF of 55%. Mild to moderate aortic regurgitation and mitral regurgitation and borderline pulmonary hypertension Qualifiers: Congestive heart failure type: diastolic Qualified Code(s): I50.33 - Acute on chronic diastolic (congestive) heart failure (2) Atrial fibrillation Current Visit: Yes Status: Chronic Assessment and plan: Rate controlled. On anticoagulation with Coumadin. INR is therapeutic Qualifiers: Atrial fibrillation type: paroxysmal Qualified Code(s): I48.0 - Paroxysmal atrial fibrillation (3) Chronic kidney disease, stage 3 Current Visit: Yes Status: Chronic Assessment and plan: Baseline creatinine between 1 and 1.5. Creatinine today is 1.28. We will follow renal function closely. (4) Coronary artery disease Current Visit: Yes Status: Chronic Assessment and plan: Continue aspirin, carvedilol, Lipitor. No chest pain. Qualifiers: Coronary Disease-Associated Artery/Lesion type: [place] artery [place] vs. transplanted heart: [place] heart Associated angina: without angina Qualified Code(s): I25.10 - Atherosclerotic heart disease of [place] coronary artery without angina pectoris (5) Diabetes mellitus Current Visit: Yes Status: Chronic Assessment and plan: Patient did have low blood sugar earlier this morning. Will decrease evening dose of long-acting insulin. Qualifiers: Diabetes mellitus type: type 2 Diabetes mellitus complication status: with kidney complications Diabetes mellitus complication detail: with chronic kidney disease Diabetes mellitus correction insulin use: without correction use Chronic kidney disease stage: stage 3 (moderate) Qualified Code(s): E11.22 - Type 2 diabetes mellitus with diabetic chronic kidney disease; N18.3 - Chronic kidney disease, stage 3 (moderate) (6) DVT prophylaxis Current Visit: Yes Status: Acute Assessment and plan: With Coumadin (7) Hypertension Current Visit: No Status: Chronic Assessment and plan: Blood pressure is well controlled. No changes at this time Qualifiers: Hypertension type: essential hypertension Qualified Code(s): I10 - Essential (primary) hypertension (8) Hypothyroidism Current Visit: Yes Status: Chronic Assessment and plan: Continue levothyroxine Qualifiers: Hypothyroidism type: unspecified Qualified Code(s): E03.9 - Hypothyroidism , unspecified - Subjective Interval history: Patient is feeling better this morning. No chest pain or palpitations. Lower extremity edema and facial swelling have improved. Patient has had -1.8 L fluid balance. - Constitutional Vitals: Temp Pulse Resp BP Pulse Ox 98.9 F 58 19 120/69 96 04/05/17 14:54 04/05/17 14:54 04/05/17 14:54 04/05/17 14:54 04/05/17 14:54 General appearance: Present: cooperative, A&O X 3, pleasant, obese, answers questions appropriately - Respiratory Respiratory exam: Present: CTAB. Absent: accessory muscle use, rales, rhonchi, wheezes - Cardiovascular Cardiovascular exam: Present: RRR, +S1, +S2. Absent: diastolic murmur, gallop, rubs, systolic murmur - GI/Abdominal GI/Abdominal exam: Present: normal bowel sounds, soft, no peritoneal signs. Absent: distended, tenderness - Extremities Exam Extremities exam: Present: warm, radial pulses palpable and symmetrical. Absent : calf tenderness, cyanotic, pedal edema - Neurological Exam Neurological exam: Present: alert, CN II-XII intact, oriented X3, no focal deficits. Absent: facial droop, speech deficit Internal Medicine: Result - Labs CBC & Chem 7: 04/05/17 05:59 04/05/17 05:59 Labs: Short CBC 04/05/17 Range/Units 05:59 WBC 7.4 (4.3-11.1) K/mcL Hgb 11.3 L (11.5-15.4) g/dL Hct 36.2 (35.3-44.9) % Plt Count 218 (140-400) K/mcL Neutrophils # 4.6 (1.6-8.9) K/mcL BMP 04/05/17 05:59 Sodium 144 Potassium 3.6 Chloride 107 Carbon Dioxide 29 BUN 22 Creatinine 1.28 H Glucose 47 L Calcium 8.5 L Liver Function 04/05/17 Range/Units 05:59 Total Bilirubin 0.4 (0.3-1.0) mg/dL AST 24 (13-39) Units/L ALT 27 (7-52) Units/L Alkaline Phosphatase 76 (34-104) Units/L Albumin 2.8 L (3.5-5.7) g/dL - ABG Interpretation ABG results: PT/INR, D-dimer PT 35.6 Seconds (9.4-12.1) H 04/05/17 09:06 Consult Discharge Plan - Plan Referrals: Blaire Olivo, DRUG AND ALCOHOL COUNSELLOR [Primary Care Provider] -
[2017-04-05] MEDS ORDERED: Insulin DETEMIR 100 UNIT/ML X5UNITS SQ SCH (16:27)
[2017-04-06] MEDS: Insulin LISPRO 300 UNITS/3 ML VIAL SQ SCH ×3 (01:12→12:08)
[2017-04-06 06:59] LABS: Albumin 2.7 g/dL (3.5-5.7); Albumin/Globulin Ratio 1.3 (1.1-2.2); Bilirubin,Total 0.4 mg/dL (0.3-1.0); Calcium 8.4 mg/dL (8.6-10.3); Globulin 2.1 g/dL (2.4-3.5); Total Protein 4.8 g/dL (6.4-8.9)
[2017-04-06 07:24] LABS: Basophils # 0.1 K/mcL (0.0-0.2); Basophils % 0.8 %; Eosinophils % 0.6 %; Hematocrit 35.6 % (35.3-44.9); Hemoglobin 10.8 g/dL (11.5-15.4); Immature Granulocytes % 1.1 % (0-4); Lymphocytes # 1.4 K/mcL (0.6-4.6); Lymphocytes % 21.7 %; Mean Corpuscular HGB Conc 30.3 g/dL (31.6-35.5); Mean Corpuscular Hemoglobin 26.7 pg (28.0-33.3); Mean Corpuscular Volume 87.9 fL (83.0-100.0); Mean Platelet Volume 10.6 fL (9.4-12.4); Monocytes # 0.8 K/mcL (0.0-1.3); Monocytes % 12.9 %; Neutrophils # 3.9 K/mcL (1.6-8.9); Platelet Count 197 K/mcL (140-400); Red Blood Count 4.05 M/mcL (3.82-4.97); Segmented Neutrophils % 62.9 %
[2017-04-06 07:48] LABS: Prothrombin Time 33.4 Seconds (9.4-12.1)
[2017-04-06] MEDS ORDERED: Furosemide 40 MG TABLET PO SCH (09:00)
[2017-04-06] MEDS: Magnesium Oxide 400 MG TABLET PO SCH (09:16)
[2017-04-06] MEDS: Aspirin 81 MG TAB.CHEW PO SCH (09:16)
[2017-04-06] MEDS: Famotidine 20 MG TABLET PO SCH (09:16)
[2017-04-06] MEDS: Diltiazem CD (24hr) 180 MG CAPSULE PO SCH (09:16)
[2017-04-06 11:52] VITALS: BP 149/82
--- NOTE | 2017-04-06 13:55 | Discharge Summary ---
Date of Encounter: 04/06/17 Time of Encounter: 13:50 - Discharge Diagnosis (1) Acute exacerbation of CHF (congestive heart failure) Priority: Primary Status: Acute Qualifiers: Congestive heart failure type: diastolic Qualified Code(s): I50.33 - Acute on chronic diastolic (congestive) heart failure (2) Atrial fibrillation Priority: Secondary Status: Chronic Qualifiers: Atrial fibrillation type: persistent Qualified Code(s): I48.1 - Persistent atrial fibrillation (3) Chronic kidney disease, stage 3 Priority: Secondary Status: Chronic (4) Coronary artery disease Priority: Secondary Status: Chronic Qualifiers: Coronary Disease-Associated Artery/Lesion type: [place] artery [place] vs. transplanted heart: [place] heart Associated angina: without angina Qualified Code(s): I25.10 - Atherosclerotic heart disease of [place] coronary artery without angina pectoris (5) Diabetes mellitus Priority: Secondary Status: Chronic Qualifiers: Diabetes mellitus type: type 2 Diabetes mellitus complication status: with kidney complications Diabetes mellitus complication detail: with chronic kidney disease Diabetes mellitus appointment clerk insulin use: without appointment clerk use Chronic kidney disease stage: stage 3 (moderate) Qualified Code(s): E11.22 - Type 2 diabetes mellitus with diabetic chronic kidney disease; N18.3 - Chronic kidney disease, stage 3 (moderate); N18.3 - Chronic kidney disease, stage 3 (moderate) (6) DVT prophylaxis Priority: Secondary Status: Acute (7) Hypertension Priority: Secondary Status: Chronic Qualifiers: Hypertension type: essential hypertension Qualified Code(s): I10 - Essential (primary) hypertension (8) Hypothyroidism Priority: Secondary Status: Chronic Qualifiers: Hypothyroidism type: unspecified Qualified Code(s): E03.9 - Hypothyroidism , unspecified - Discharge Medications Prescriptions: Furosemide [Lasix] 40 mg PO DAILY #30 tablet Home Medications: Atorvastatin [Lipitor] 40 mg PO HS 05/03/15 [History] Magnesium Oxide [Magnesium] 400 mg PO QAM 05/03/15 [History] Potassium Chloride [K-Tab ER] 10 meq PO QAM 05/03/15 [History] Aspirin 81 mg PO QAM 07/06/15 [History] Insulin ASPART [Novolog Flexpen] 5 - 15 unit SQ TIDWM 07/06/15 [History] Warfarin [Coumadin] 2.5 mg PO SUMOTUWETHSA 08/24/15 [History] Insulin DETEMIR [Levemir Flextouch] 30 unit SQ HS 04/16/16 [History] Diltiazem HCl [Diltiazem 24Hr Cd] 360 mg PO DAILY 08/02/16 [History] Warfarin [Coumadin] 3.75 mg PO FR 08/02/16 [History] Carvedilol [Coreg] 25 mg PO BID 04/04/17 [History] Cholecalciferol (Vitamin D3) [Vitamin D3] 50,000 unit PO SA 04/04/17 [History] Levothyroxine Sodium [Levo-T] 200 mcg PO DAILY 04/04/17 [History] Liothyronine Sodium [Cytomel] 5 mcg PO DAILY 04/04/17 [History] Liraglutide [Victoza 2-[place]] 1.2 mg SQ DAILY 04/04/17 [History] Losartan [Cozaar] 25 mg PO BID 04/04/17 [History] Ranitidine HCl [Zantac] 150 mg PO BID 04/04/17 [History] Furosemide [Lasix] 40 mg PO DAILY #30 tablet 04/06/17 [Rx] Allergies/Adverse Reactions: 3 Allergy/AdvReac Type Severity Reaction Status Date / Time nitroglycerin AdvReac Nausea Verified 04/04/17 10:10 Procedures/tests Complete & Pending: Procedures Performed prior 72 hours Category Date Time Status EV echocardiogram Routine Y 04/04/17 11:00 Completed Date of admission: 04/04/17 10:39 Primary care physician: Blaire Olivo Consults: 04/04/17 10:43 Consult to Occupational Therapy [CONS] Routine Comment: Evaluate, develop and implement POC Reason for Consult: Patient reports some unsteadiness/dizziness w/ ambulation. Please assess patient for ambulation strength, stability, safety, and possible home assistive needs for post-discharge planning. Consult to Medical Photographer [CONS] Routine Reason for SW Consult: Please assess patient for possible home needs for post -discharge planning. 04/04/17 10:45 Consult to Physical Therapy [CONS] Routine Comment: Evaluate, develop and implement POC Reason for Consult: Patient reports some unsteadiness/dizziness w/ ambulation. Please assess patient for ambulation strength, stability, safety, and possible home assistive needs for post-discharge planning. Discharging clinician: Zach Escobar Anticipated date of discharge: 01/10/18 - Patient Status Disposition: Home, Self-Care Condition: Good Functional capacity at discharge: independent ambulation Overall status at discharge: patient is progressing back to baseline - Ambulatory Orders Ambulatory Orders: Basic Metabolic Panel [CHEM] Time Frame: 1 Week, Facility: [facility], Location: Lab - Discharge Instructions Follow Up With: Blaire Olivo, JOB PRESS FEEDER [Primary Care Provider] - (in 1-2 weeks) - Diet and Activity Activity: increase activity as tolerated Diet: diabetic diet, low salt diet, other (FLuid restriction to 1.5L/24 hrs) Hospital course: Ms. Smith is a 76 year old female patient with history of chronic kidney disease stage III, coronary artery disease, atrial fibrillation, diastolic congestive heart failure, diabetes mellitus type 2 was hospitalized here with acute exacerbation of CHF. She had come in with complaints of increased leg swelling and shortness of breath and facial puffiness. She was treated with intravenous Lasix with improvement in her symptoms. Her renal function has remained stable. She is now doing much better and her lower extremity swelling has subsided. She is clinically stable to be discharged home. She will be discharged on 40 mg of Lasix daily. - Time Spent with Patient Total time spent providing and/or coordinating discharge services: Greater than 30 minutes (35 min) - Constitutional Vitals: Temp Pulse Resp BP Pulse Ox 98.7 F 82 16 149/82 95 04/06/17 11:50 04/06/17 11:50 04/06/17 11:50 04/06/17 11:50 04/06/17 11:50 General appearance: Present: cooperative, A&O X 3, pleasant, obese, answers questions appropriately - Neck Neck exam general surgery: Present: supple, trachea midline. Absent: lymphadenopathy - Respiratory Respiratory exam: Present: CTAB. Absent: accessory muscle use, rales, rhonchi, wheezes - Cardiovascular Cardiovascular exam: Present: RRR, +S1, +S2. Absent: diastolic murmur, gallop, rubs, systolic murmur - GI/Abdominal GI/Abdominal exam: Present: normal bowel sounds, soft, no peritoneal signs. Absent: distended, tenderness - Extremities Exam Extremities exam: Present: warm, radial pulses palpable and symmetrical. Absent : calf tenderness, cyanotic, pedal edema
[2017-04-06] MEDS ORDERED: *HR* Warfarin 2.5 MG TABLET PO ONE (18:00)
== END 2017-04-06 16:55 | disposition home or self-care (01) | DRG 291 ==
LOC: EMEROO 08:18 → 3ANU 08:18 → SUATTDRO 10:20 → 3ANU 10:35
PROVIDERS: ADMIT Student in an Organized Health Care Education/Training Program; ATTEND Internal Medicine

== ENCOUNTER 2017-04-08 17:31 | Inpatient (IN) ==
--- NOTE | 2017-04-08 17:42 | Emergency Department Note ---
Disposition Clinical Impression: Hypoglycemia, Bradycardia Disposition: Admitted As Inpatient Condition: Good Forms: ED Satisfaction Letter Time of Disposition: 17:51 General Adult HPI - General Chief complaint: ED Arrhythmia/Palpitations Stated complaint: low blood sugar, afib Time Seen by Provider: 04/08/17 17:33 Source: patient, EMS Mode of arrival: EMS Limitations: no limitations Nursing Notes Reviewed: Yes Vital Signs Reviewed: Yes - History of Present Illness HPI Narrative: 76-year-old with a history of A. fib diabetes CHF comes in with found unresponsive at home her blood sugar 28 was given glucose Nichol came up to 209 she started trending back down to 106. During his stay in outside ER the patient's heart rate 25, was given atropine with improvement in heart rate. The patient was noted to have glucose that was trending back down. Lab work from the outside facility shows white count 11 to a hemoglobin 13.1 hematocrit of 39.4 platelets of 264,000. Sodium 145 potassium 3.3 chloride 105 carbon dioxide 32 glucose 158 total bilirubin 0.5 direct of 0.2 lactic acid of 2. The outside hospital did speak to but he wanted her to come to the ER to assert stability. 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 - Related Data Home Medications Medication Instructions Recorded Confirmed Atorvastatin [Lipitor] 40 mg PO HS 05/03/15 04/04/17 Magnesium Oxide [Magnesium] 400 mg PO QAM 05/03/15 04/04/17 Potassium Chloride [K-Tab ER] 10 meq PO QAM 05/03/15 04/04/17 Aspirin 81 mg PO QAM 07/06/15 04/04/17 Insulin ASPART [Novolog Flexpen] 5 - 15 unit SQ TIDWM 07/06/15 04/04/17 Warfarin [Coumadin] 2.5 mg PO SUMOTUWETHSA 08/24/15 04/04/17 Insulin DETEMIR [Levemir Flextouch] 30 unit SQ HS 04/16/16 04/04/17 Diltiazem HCl [Diltiazem 24Hr Cd] 360 mg PO DAILY 08/02/16 04/04/17 Warfarin [Coumadin] 3.75 mg PO FR 08/02/16 04/04/17 Carvedilol [Coreg] 25 mg PO BID 04/04/17 04/04/17 Cholecalciferol (Vitamin D3) 50,000 unit PO SA 04/04/17 04/04/17 [Vitamin D3] Levothyroxine Sodium [Levo-T] 200 mcg PO DAILY 04/04/17 04/04/17 Liothyronine Sodium [Cytomel] 5 mcg PO DAILY 04/04/17 04/04/17 Liraglutide [Victoza 2-Elias] 1.2 mg SQ DAILY 04/04/17 04/04/17 Losartan [Cozaar] 25 mg PO BID 04/04/17 04/04/17 Ranitidine HCl [Zantac] 150 mg PO BID 04/04/17 04/04/17 Previous Rx's Medication Instructions Recorded Furosemide [Lasix] 40 mg PO DAILY #30 tablet 04/06/17 Allergies Allergy/AdvReac Type Severity Reaction Status Date / Time nitroglycerin AdvReac Nausea Verified 04/04/17 10:10 All systems ED: reviewed and negative except as stated. Constitutional: Denies: fever, chills, weakness, weight change Eyes: Denies: eye pain, eye discharge, vision change ENT ED: Denies: ear pain, throat pain, dental pain, hearing loss, epistaxis, congestion, dysphagia Cardiovascular: Denies: chest pain, palpitations, dyspnea on exertion, edema, syncope Respiratory: Denies: cough, dyspnea, wheezes, hemoptysis, stridor Gastrointestinal: Denies: abdominal pain, nausea, vomiting, diarrhea, constipation, hematemesis, melena, hematochezia Genitourinary: Denies: dysuria, frequency, hematuria, discharge Musculoskeletal: Denies: back pain, neck pain, arthralgia, myalgia Integumentary: Denies: rash, abrasion, lesions Neurological: Denies: headache, weakness, numbness, paresthesias, confusion, abnormal gait, vertigo Psychiatric: Denies: anxiety, depression, suicidal thoughts, homicidal thoughts , auditory hallucinations, visual hallucinations Endocrine: Denies: fatigue Hematological/Lymphatic: Denies: easy bleeding, easy bruising Allergic/Immunologic: Denies: facial swelling, urticaria Past Medical History - Past Medical History Medical history: Reports: aortic aneurysm, atrial fibrillation, CHF, COPD, coronary artery disease, diabetes, GERD, hyperlipidemia, hypertension, myocardial infarction, renal disease, thyroid disease Surgical history: Reports: angioplasty/stent, coronary bypass (CABG) Psychiatric history: Reports: no psych history COLOR ADVISER history: Reports: no COLOR ADVISER history, other - Social History Smoking Status: Former smoker Smokeless Tobacco Status: No Alcohol use: Reports: none Drug use: Reports: none Physical Exam - General Limitations: no limitations General appearance: alert, in no apparent distress - Head Head exam: atraumatic, normocephalic, normal inspection - Eye Eye exam: Present: normal appearance, PERRL, EOMI - ENT ENT exam: normal exam, normal oropharynx, mucous membranes moist - Neck Neck exam: Present: normal inspection, full ROM, trachea midline - Chest Chest inspection: Present: normal inspection, symmetric chest wall rise - Respiratory Respiratory exam: Present: normal lung sounds bilaterally - Cardiovascular Cardiovascular exam: Present: regular rate, irregular rhythm - Abdominal Exam Abdominal exam: Present: soft, Non-Tender. Absent: tenderness, distention, guarding, rebound, rigidity - Extremities Exam Extremities exam: Present: normal inspection, full ROM. Absent: tenderness, pedal edema - Expanded Lower Extremity Exam Gait: observed and normal - Back Exam Back exam: Present: normal inspection, full ROM. Absent: tenderness - Neurological Exam Neurological exam: Present: alert, oriented X3 - Psychiatric Psychiatric exam: Present: normal affect, normal mood - Skin Skin exam: Present: warm, dry, intact, normal color Course - Consultations Consultation #1: 76-year-old who had an episode of low blood sugar. Also had an episode of bradycardia requiring atropine. The patient was accepted by the hospitalist here and will be admitted. The patient does appear to be stable at this point in time. Fingerstick blood sugar was 227. Her rate on arrival was 77. Blood pressure was stable. I discussed the case with , admit. He requested D10. Time: 17:45 Vital Signs Temperature 97.5 F L 04/08/17 17:40 Pulse Rate 74 04/08/17 17:40 Respiratory Rate 18 04/08/17 17:40 Blood Pressure 145/95 04/08/17 17:40 O2 Sat by Pulse Oximetry 97 04/08/17 17:40 Temperature 97.5 F L 04/08/17 17:40 Pulse Rate 74 04/08/17 17:40 Respiratory Rate 18 04/08/17 17:40 Blood Pressure 145/95 04/08/17 17:40 O2 Sat by Pulse Oximetry 97 04/08/17 18:21 Oxygen Delivery Oxygen Delivery Room Air Medical Decision Making - Lab Data Lab Results 04/08/17 Range/Units 18:06 Troponin I < 0.03 (< 0.04) ng/mL - EKG Data EKG #1 EKG attestation: Yes I reviewed and interpreted this EKG. Rate: normal Rhythm: A.Fib Interpretation: no acute changes, other (Artifact on the EKG is from a bladder stimulator.)
[2017-04-08] MEDS ORDERED: D10% in Water 500 ML IV SOLUTION IVC SCH (18:00)
[2017-04-08] MEDS ORDERED: D10% in Water 500 ML IVC SCH (18:45)
[2017-04-08] MEDS ORDERED: Naloxone 0.4 MG/ML INJ IVP PRN (23:21)
[2017-04-08] MEDS ORDERED: *HR* Warfarin 2.5 MG TABLET PO SCH (23:30)
--- NOTE | 2017-04-08 23:31 | Internal Med History&Physical ---
Date of Encounter: 04/08/17 Time of Encounter: 23:28 Assessment and Plan (1) Bradycardia Current visit: Yes Status: Acute tele monitoring for now Hold twila chichi repeat EKG in the a.m consult cards Not convinced this is tachy-justice but will have card eval could possibly be related to hypoglycemia and transient respiratory?? (2) Hypoglycemia Current visit: Yes Status: Acute uncertain etiology hold insulin doubt infection , but will repeat blood, urine studies, cxr on glucose gtt continue to trend CBG (3) Diabetes mellitus Current visit: No Status: Chronic hold insulin due to low blood sugar Qualifiers: Diabetes mellitus type: type 2 Diabetes mellitus complication status: with kidney complications Diabetes mellitus complication detail: with chronic kidney disease Diabetes mellitus long-term insulin use: without long-term use Chronic kidney disease stage: stage 3 (moderate) Qualified Code(s): E11.22 - Type 2 diabetes mellitus with diabetic chronic kidney disease; N18.3 - Chronic kidney disease, stage 3 (moderate); N18.3 - Chronic kidney disease, stage 3 (moderate) (4) Congestive heart failure Current visit: No Status: Chronic chronic stable no evidence of exacerbation Qualifiers: Congestive heart failure type: unspecified Congestive heart failure chronicity: chronic Qualified Code(s): I50.9 - Heart failure, unspecified (5) Hypothyroid Current visit: Yes Status: Acute need to clarify her home med check TSH, FT4 Qualifiers: Hypothyroidism type: acquired Qualified Code(s): E03.9 - Hypothyroidism, unspecified Internal Medicine - H&P: HPI Chief complaint: symptomatic Hypoglycemia and found bradycardia History of present illness: Ms. Smith is a 76 year old female IDDM, hypothyroid, AFib on coumadin, CHF hx , bladder stimulator, who presents with symptomatic hypoglycemia and was found to be bradycardic. She lives at home and today when she was doing laundry, felt unwell with what she thought as low blood sugar. Her grand-dtr was home and brought her to [facility] where she was found to be hypoglycemic to 28 needing IV glucose, her HR was also found to be low in 38 but responded quickly to atropine. She denies any recent insulin adjustment but noted that her appetite had been low recently. Also reports no other cardiac med adjustment. She is always cold but denies fevers or rigors or focal symptoms to suggest overt infection Lactate 2.0 WBC 11.2 Cr 1.52 Past Med Surg Social Fam HX - Past Medical History Medical history: aortic aneurysm, atrial fibrillation, CHF, COPD, coronary artery disease, diabetes, GERD, hyperlipidemia, hypertension, myocardial infarction, renal disease, thyroid disease Psychiatric history: no psych history - Past Surgical History Surgical History: angioplasty/stent, coronary bypass (CABG), hysterectomy - Social History Smoking Status: Former smoker Smokeless Tobacco Status: No Alcohol use: none Drug use: none - Family History Father Family Member Ethnicity: Non- Living Status: Grandfather Hx Family Endocrine Disorder: Yes (DM) Mother Family Member Ethnicity: Non- Living Status: Hx Family Cardiac Disorders: No Hx Family Respiratory Disorders: No Hx Family Cancer: No Hx Family GI Disorders: No Hx Family Endocrine Disorder: No Hx Family Neuromuscular Disorders: No Hx Family Neurologic Disorders: No Hx Family HEENT Disorders: No Hx Family Autoimmune Disorders: No Sister Family Member Ethnicity: Non- Living Status: Still Living Hx Family Cardiac Disorders: Yes ([place]) Hx Family Cancer: Yes (sister-skin cancer) Internal Medicine - H&P: Meds Atorvastatin [Lipitor] 40 mg PO 05/03/15 [History] Magnesium Oxide [Magnesium] 400 mg PO QAM 05/03/15 [History] Potassium Chloride [K-Tab ER] 10 meq PO QAM 05/03/15 [History] Aspirin 81 mg PO QAM 07/06/15 [History] Insulin ASPART [Novolog Flexpen] 5 - 15 unit SQ TIDWM 07/06/15 [History] Warfarin [Coumadin] 2.5 mg PO SUMOTUWETHSA 08/24/15 [History] Insulin DETEMIR [Levemir Flextouch] 30 unit SQ HS 04/16/16 [History] Diltiazem HCl [Diltiazem 24Hr Cd] 360 mg PO DAILY 08/02/16 [History] Warfarin [Coumadin] 3.75 mg PO FR 08/02/16 [History] Carvedilol [Coreg] 25 mg PO BID 04/04/17 [History] Cholecalciferol (Vitamin D3) [Vitamin D3] 50,000 unit PO SA 04/04/17 [History] Levothyroxine Sodium [Levo-T] 200 mcg PO DAILY 04/04/17 [History] Liothyronine Sodium [Cytomel] 5 mcg PO DAILY 04/04/17 [History] Liraglutide [Victoza 2-Elias] 1.2 mg SQ DAILY 04/04/17 [History] Losartan [Cozaar] 25 mg PO BID 04/04/17 [History] Ranitidine HCl [Zantac] 150 mg PO BID 04/04/17 [History] Furosemide [Lasix] 40 mg PO DAILY #30 tablet 04/06/17 [Rx] 3 Allergy/AdvReac Type Severity Reaction Status Date / Time nitroglycerin AdvReac Nausea Verified 04/04/17 10:10 All Systems PM: A 10-system review of systems was performed and is negative for pertinent findings except as documented above in the HPI. Review of systems: ROS 14 point review of systems reviewed as best as possible given presentation. Pertinent positive or negative as per HPI or otherwise reviewed as negative - Constitutional Vitals: Temp Pulse Resp BP Pulse Ox 97.9 F 82 16 175/94 96 04/08/17 20:30 04/08/17 20:30 04/08/17 20:30 04/08/17 20:30 04/08/17 20:30 Exam: General - AAO x 3 Psych - Appropriate affect/speech. No agitation Eyes - LUBNA. Eye lids intact. No scleral icterus Neuro - No gross peripheral or central neuro deficits Heart - Sinus. RRR. S1 and S2 present. No added HS/murmurs appreciated. No elevated JVD appreciated. Lung - Adequate air entry b/l, No crackles/wheezes appreciated GI - Soft, non-tender. No hepatosplenomegaly/ascites. BS+ - No CVA/suprapubic tenderness or palpable bladder distension
[2017-04-09] MEDS: Ringers Solution, Lactated 1,000 ML IVC SCH ×2 (00:58→11:32)
[2017-04-09 05:14] LABS: Basophils # 0.1 K/mcL (0.0-0.2); Basophils % 0.6 %; Eosinophils % 0.5 %; Hematocrit 35.6 % (35.3-44.9); Hemoglobin 11.2 g/dL (11.5-15.4); Immature Granulocytes % 0.6 % (0-4); Lymphocytes # 1.5 K/mcL (0.6-4.6); Lymphocytes % 18.7 %; Mean Corpuscular HGB Conc 31.5 g/dL (31.6-35.5); Mean Corpuscular Volume 85.8 fL (83.0-100.0); Mean Platelet Volume 10.6 fL (9.4-12.4); Monocytes # 0.9 K/mcL (0.0-1.3); Monocytes % 10.8 %; Neutrophils # 5.5 K/mcL (1.6-8.9); Platelet Count 223 K/mcL (140-400); Red Blood Count 4.15 M/mcL (3.82-4.97); Red Cell Distribution Width 15.2 % (11.5-14.5); Segmented Neutrophils % 68.8 %
[2017-04-09 05:31] LABS: INR 3.3; Prothrombin Time 36.3 Seconds (9.4-12.1)
[2017-04-09 05:35] LABS: Calcium 8.9 mg/dL (8.6-10.3); Magnesium 2.1 mg/dL (1.6-2.6); Potassium 3.8 mEq/L (3.5-5.1)
[2017-04-09 05:44] LABS: Thyroid Stimulating Hormone 0.129 mcIU/mL (0.340-5.600)
[2017-04-09] MEDS ORDERED: Famotidine 20 MG TABLET PO SCH (07:30)
[2017-04-09] MEDS: Furosemide 40 MG TABLET PO SCH (09:02)
[2017-04-09] MEDS: Magnesium Oxide 400 MG TABLET PO SCH (09:02)
--- NOTE | 2017-04-09 12:53 | Internal Med Progress Note ---
<Carter,Dixon - Last Filed: 04/09/17 12:51> Date of Encounter: 04/09/17 Time of Encounter: 09:30 - Assessment and plan (1) Hypoglycemia Current Visit: Yes Status: Acute Assessment and plan: Resolved may be due to sliding scale insulin at home. Values are becoming elevated here in the hospital we will start a low-dose sliding scale insulin here (2) Bradycardia Current Visit: Yes Status: Acute Assessment and plan: No bradycardia seen since admission. Consider beta chichi overdose holding beta chichi, restarted diltiazem continue monitoring cardiology consult (3) Hypertension Current Visit: No Status: Chronic Assessment and plan: Elevated this morning restarted some home medications Qualifiers: Hypertension type: essential hypertension Qualified Code(s): I10 - Essential (primary) hypertension (4) Chronic obstructive pulmonary disease Current Visit: No Status: Chronic Assessment and plan: Stable Qualifiers: COPD type: unspecified COPD Qualified Code(s): J44.9 - Chronic obstructive pulmonary disease, unspecified (5) Atrial fibrillation Current Visit: Yes Status: Chronic Assessment and plan: Rate controlled restarted diltiazem holding beta chichi Qualifiers: Atrial fibrillation type: paroxysmal Qualified Code(s): I48.0 - Paroxysmal atrial fibrillation (6) Anticoagulated on Coumadin Current Visit: Yes Status: Acute Assessment and plan: INR 3.3 this morning will monitor (7) Supratherapeutic INR Current Visit: Yes Status: Acute Assessment and plan: 3.3 this morning will monitor (8) Hypothyroidism Current Visit: No Status: Chronic Assessment and plan: Restarted home levothyroxine Qualifiers: Hypothyroidism type: unspecified Qualified Code(s): E03.9 - Hypothyroidism , unspecified (9) HLD (hyperlipidemia) Current Visit: Yes Status: Chronic Assessment and plan: Continue atorvastatin Qualifiers: Hyperlipidemia type: pure hypercholesterolemia Qualified Code(s): E78.00 - Pure hypercholesterolemia, unspecified; E78.0 - Pure hypercholesterolemia (10) Thoracic aortic aneurysm without rupture Current Visit: No Status: Chronic Assessment and plan: No symptomatology at present - Subjective Interval history: Patient reports significant improvement overnight. She is experiencing none of the symptoms that initially brought her in. Denies chest pain, lightheadedness , shortness of breath, or confusion. - Constitutional Vitals: Temp Pulse Resp BP Pulse Ox 98.2 F 93 15 141/82 99 01/13/18 11:45 04/09/17 11:45 04/09/17 11:45 04/09/17 11:45 04/09/17 11:45 General appearance: Present: cooperative, A&O X 3, pleasant, no acute distress, answers questions appropriately - Head Head exam: Present: atraumatic, normal inspection, normocephalic - ENT ENT exam: Present: mucous membranes moist - Neck Neck exam general surgery: Present: trachea midline - Respiratory Respiratory exam: Present: CTAB. Absent: accessory muscle use, respiratory distress - Cardiovascular Cardiovascular exam: Present: irregular rhythm, +S1, +S2 - GI/Abdominal GI/Abdominal exam: Present: soft, no peritoneal signs. Absent: tenderness - Extremities Exam Extremities exam: Absent: pedal edema - Neurological Exam Neurological exam: Present: alert, oriented X3 - Psychiatric Psychiatric exam: Present: normal affect, normal mood. Absent: agitated, anxious - Skin Skin exam: Present: dry, warm. Absent: diaphoretic Internal Medicine: Result - Labs CBC & Chem 7: 04/09/17 04:43 04/09/17 04:43 Labs: Short CBC 04/09/17 Range/Units 04:43 WBC 7.9 (4.3-11.1) K/mcL Hgb 11.2 L (11.5-15.4) g/dL Hct 35.6 (35.3-44.9) % Plt Count 223 (140-400) K/mcL Neutrophils # 5.5 (1.6-8.9) K/mcL BMP 04/09/17 04:43 Sodium 144 Potassium 3.8 Chloride 105 Carbon Dioxide 32 H BUN 31 H Creatinine 1.21 H Glucose 175 H Calcium 8.9 - ABG Interpretation ABG results: PT/INR, D-dimer PT 36.3 Seconds (9.4-12.1) H 04/09/17 04:43 - Impressions Impressions Chest X-Ray 04/09/17 06:00 IMPRESSION: Small bilateral pleural effusions, decreased on the right. Background edema and cardiomegaly appear similar. D/ / James Krause / James Krause Interpreting Provider: James Krause Consult Discharge Plan - Plan Referrals: Blaire Olivo, MEDICAL FIELD REPRESENTATIVE [Primary Care Provider] - <Preston Pace T - Last Filed: 04/09/17 14:23> Date of Encounter: 04/09/17 - Constitutional Vitals: Temp Pulse Resp BP Pulse Ox 98.2 F 93 15 141/82 99 04/09/17 11:45 04/09/17 11:45 04/09/17 11:45 04/09/17 11:45 04/09/17 11:45 Internal Medicine: Result - Labs CBC & Chem 7: 04/09/17 04:43 04/09/17 04:43 Labs: Short CBC 04/09/17 Range/Units 04:43 WBC 7.9 (4.3-11.1) K/mcL Hgb 11.2 L (11.5-15.4) g/dL Hct 35.6 (35.3-44.9) % Plt Count 223 (140-400) K/mcL Neutrophils # 5.5 (1.6-8.9) K/mcL BMP 04/09/17 04:43 Sodium 144 Potassium 3.8 Chloride 105 Carbon Dioxide 32 H BUN 31 H Creatinine 1.21 H Glucose 175 H Calcium 8.9 - ABG Interpretation ABG results: PT/INR, D-dimer PT 36.3 Seconds (9.4-12.1) H 04/09/17 04:43 - Impressions Impressions Chest X-Ray 04/09/17 06:00 IMPRESSION: Small bilateral pleural effusions, decreased on the right. Background edema and cardiomegaly appear similar. D/ / James Krause / James Krause Interpreting Provider: James Krause - Attending Attestation I examined this patient and my medical decision-making was reviewed with the Resident Physician on 04/09/17. I agree with the documented findings, disposition and treatment plan as described except to the extent set forth below. 76 F with PMH of Hypothyroidism, CHF, Afib on Warfarin, CAD s/p CABG, DM admitted following an episode of hyoglycemia and bradycardia, A1C is 6.6 and she has been on her current insulin regimen for 3 months. She was recently discharged for [facility] when her medications were adjusted, she seems not to be sure of which pill she takes. She has no new complain. FS has improved with dextrose, HR has been stable. Cardio eval noted, to discontinue cardizem and restart coreg at a low dose, no intervention planned Physical exam is remarkable for a LSM. Chest is CTAB. No neuro deficits Labs and Imaging reviewed: CXR with bilateral pleural effusions, cardiomegaly, pulm edema,CBC WNL, Kavita at baseline, INR 3.3 Assessment: Hypoglycemia and Bradycardia, consider BB overdose, hold levemir, continu sliding scale only, resume BB at lower dose, per cardio, discontinue cardizem Patient's home meds will be otherwise continued FS is improving, continue to monitor Rest as in resident physician's documentation
--- NOTE | 2017-04-09 13:45 | Cardiology Consult Note ---
<Giovana Carrillo - Last Filed: 04/09/17 13:57> Date of Encounter: 04/09/17 Time of Encounter: 12:30 Assessment and Plan (1) Hypoglycemia Current Visit: Yes Status: Acute Per cardiology: -ADmitted after hypoglycemic event at home. -Management per primary service. (2) Bradycardia Current Visit: No Status: Acute Per cardiology: -Bradycardia reported from outside facility and was given atropine. -No bradycardia noted at ARM. -Reviewed patient's medications with her, patient states "i was taking 2 of the little white heart pills in the morning and another heart pill, and then 2 little white pills in the evening and another heart pill in the evening." -I called and spoke to patient's pharmacy. They issues patient cardizem CD 360mg tablet and coreg 25 mg tablets. -I am unsure of which medication that patient was taking double of. Of note, patient was also supposed to reduce dose of coreg per last outpateint cardiology visit, however she did not. -Per discussion with , will stop cardizem. Recommend considering addition of coreg 12.5 BID starting tomorrow as long as average HR is greater than 60. -Cardiology will sign off and will follow in outpatient setting. FOllow up set. (3) Coronary artery disease Current Visit: No Status: Chronic Per cardiology: -[place]own CAD s/p CABG 1993. -On asa, statin. Not currently on beta blcoker due to bradycardia as above. -Denies chest pain. -ECG with a.fib, ST depression noted in lateral leads, worse than baseline. -Troponin negative. -TTE 04/04/16 with LVEF 55%, no segmental wall motion abnormalities. -Stress 2015 negative. -Can consider outpatient stress test. -Will continue to follow in oupatient setting. Qualifiers: Coronary Disease-Associated Artery/Lesion type: mc[place]ath artery [place] vs. transplanted heart: m[place]ath heart Associated angina: without angina Qualified Code(s): I25.10 - Atherosclerotic heart disease of mcgrath coronary artery without angina pectoris (4) Atrial fibrillation Current Visit: Yes Status: Chronic Per cardiology: -Known a.fib. -ON coumadin for anticoagulation. -Denies palpitations or fluttering. -Will continue to monitor in outpateint setting Qualifiers: Atrial fibrillation type: persistent Qualified Code(s): I48.1 - Persistent atrial fibrillation Discussion w patient/family: The assessment and plan as outlined above was discussed with the patient who expressed understanding and agreement. All questions were answered. Thank you for involving us in the care of your patient. Please call with any questions. Discussed and reviewed with . History of Present Illness Consult date: 04/08/16 Requesting physician: Maikel Petit Consult reason: bradycardia Chief complaint: hypoglycemia History of present illness: Ms. Smith is a 76 year old female with a relevant past medical history of HTN, CHF, renal insufficiency, hyperlipidemia, DM, hypothyroidism, thoracic aortic aneurysm, CAD s/p CABG 1993. Patient presented to outside facility after hypoglycemic episode at him with loss of consciousness. Patient states she does not remember what happened, states she just remembers waking up at outside facility. Per review of records, patient was bradycardic with HRs reported at being in the 30s. Patient was given atropine and was transferred to [facility]. Patient denies chest pain, increased shortness of breath, or increased fatigue. Past Med Surg Social Fam HX - Past Medical History Attestation: Yes The following information was validated with the patient. Source: patient, old records reviewed Medical history: aortic aneurysm, atrial fibrillation, CHF, COPD, coronary artery disease, diabetes, GERD, hyperlipidemia, hypertension, myocardial infarction, renal disease, thyroid disease Psychiatric history: no psych history - Past Surgical History Surgical History: angioplasty/stent, coronary bypass (CABG), hysterectomy - Social History Smoking Status: Former smoker Smokeless Tobacco Status: No Alcohol use: none Drug use: none - Family History Father Family Member Ethnicity: Non- Living Status: Grandfather Hx Family Endocrine Disorder: Yes (DM) Mother Family Member Ethnicity: Non- Living Status: Hx Family Cardiac Disorders: No Hx Family Respiratory Disorders: No Hx Family Cancer: No Hx Family GI Disorders: No Hx Family Endocrine Disorder: No Hx Family Neuromuscular Disorders: No Hx Family Neurologic Disorders: No Hx Family HEENT Disorders: No Hx Family Autoimmune Disorders: No Sister Family Member Ethnicity: Non- Living Status: Still Living Hx Family Cardiac Disorders: Yes (IA) Hx Family Cancer: Yes (sister-skin cancer) Medications and Allergies Atorvastatin [Lipitor] 40 mg PO HS 05/03/15 [History] Magnesium Oxide [Magnesium] 400 mg PO QAM 05/03/15 [History] Potassium Chloride [K-Tab ER] 10 meq PO QAM 05/03/15 [History] Aspirin 81 mg PO QAM 07/06/15 [History] Insulin ASPART [Novolog Flexpen] 5 - 15 unit SQ TIDWM 07/06/15 [History] Warfarin [Coumadin] 2.5 mg PO SUMOTUWETHSA 08/24/15 [History] Insulin DETEMIR [Levemir Flextouch] 30 unit SQ HS 04/16/16 [History] Diltiazem HCl [Diltiazem 24Hr Cd] 360 mg PO DAILY 08/02/16 [History] Warfarin [Coumadin] 3.75 mg PO FR 08/02/16 [History] Carvedilol [Coreg] 25 mg PO BID 04/04/17 [History] Cholecalciferol (Vitamin D3) [Vitamin D3] 50,000 unit PO SA 04/04/17 [History] Levothyroxine Sodium [Levo-T] 200 mcg PO DAILY 04/04/17 [History] Liothyronine Sodium [Cytomel] 5 mcg PO DAILY 04/04/17 [History] Liraglutide [Victoza 2-Elias] 1.2 mg SQ DAILY 04/04/17 [History] Losartan [Cozaar] 25 mg PO BID 04/04/17 [History] Ranitidine HCl [Zantac] 150 mg PO BID 04/04/17 [History] Furosemide [Lasix] 40 mg PO DAILY #30 tablet 04/06/17 [Rx] 3 Allergy/AdvReac Type Severity Reaction Status Date / Time nitroglycerin AdvReac Nausea Verified 04/04/17 10:10 All Systems Review: A 10-system review of systems was performed and is negative for pertinent findings except as documented above in the HPI. - Constitutional Constitutional: other (hypoglycemia. ) - Cardiovascular Cardiovascular: as per HPI Physical Examination Vital Signs, Last 4 Hours Temp Pulse Resp BP Pulse Ox 04/09/17 11:45 98.2 F 93 15 141/82 99 General: Conversant, No Apparent Distress HEENT: Atraumatic, Normocephaly, Mucus Membranes Moist Neck: No JVD, Normal carotid pulses Cardiac: Normal S1 and S2, Other (Irregularly irregular. Systolic murmur noted.) Lungs: Normal Breath Sounds, No Wheeze, Rales, Rhonchi Neuro: Alert and responsive, No focal deficits noted Abdomen: Soft, Non-Tender Skin: No rashes noted on visualized skin Musculoskeletal: No Chest Wall Tenderness Extremities: No Clubbing, No Cyanosis, No Edema, Normal Pulses Results 04/09/17 04:43 04/09/17 04:43 Lab Results Impressions Chest X-Ray 04/09/17 06:00 IMPRESSION: Small bilateral pleural effusions, decreased on the right. Background edema and cardiomegaly appear similar. D/ / James Krause / James Krause Interpreting Provider: James Krause Active Medications Aspirin (Aspirin) 81 mg PO QAM COUNTS INCLUDE 234 BEDS AT THE [facility] Stop: 10/10/17 09:01 Atorvastatin Calcium (Lipitor) 40 mg PO HS COUNTS INCLUDE 234 BEDS AT THE [facility] Stop: 10/09/17 21:01 Diltiazem HCl (Cardizem Cd) 360 mg PO DAILY MARCELO Stop: 10/10/17 09:01 Famotidine (Pepcid) 20 mg PO BIDAC MARCELO Stop: 10/09/17 07:31 Last Admin: 04/09/17 09:01 Dose: 20 mg Furosemide (Lasix) 40 mg PO DAILY MARCELO Stop: 10/09/17 09:01 Last Admin: 04/09/17 09:02 Dose: 40 mg Dextrose (Dextrose 10% Water 500 Ml Ivbag) 500 mls @ 50 mls/hr IVC .Q10H COUNTS INCLUDE 234 BEDS AT THE [facility] Stop: 10/08/17 18:46 Last Admin: 04/08/17 18:53 Dose: 50 mls/hr Lactated Ringer's (Lactated Ringers) 1,000 mls @ 100 mls/hr IVC .Q10H COUNTS INCLUDE 234 BEDS AT THE [facility] Stop: 04/09/17 19:29 Last Admin: 04/09/17 11:32 Dose: 100 mls/hr Insulin Human Lispro (Humalog) 0 units SQ TIDAC COUNTS INCLUDE 234 BEDS AT THE [facility] PRN Reason: Protocol Stop: 10/09/17 16:31 Levothyroxine Sodium (Synthroid) 200 mcg PO 0630 COUNTS INCLUDE 234 BEDS AT THE [facility] Stop: 10/09/17 13:16 Last Admin: 04/09/17 13:32 Dose: 200 mcg Liothyronine Sodium (Cytomel) 5 mcg PO DAILY COUNTS INCLUDE 234 BEDS AT THE [facility] Stop: 10/09/17 09:01 Last Admin: 01/13/18 09:01 Dose: 5 mcg Losartan Potassium (Cozaar) 25 mg PO BID MARCELO PRN Reason: Protocol Stop: 10/09/17 09:01 Last Admin: 04/09/17 09:01 Dose: 25 mg Magnesium Oxide (Mag-Ox) 400 mg PO QAM MARCELO PRN Reason: Protocol Stop: 10/09/17 09:01 Last Admin: 04/09/17 09:02 Dose: 400 mg Naloxone HCl (Narcan) 0.4 mg IVP Q2MIN PRN PRN Reason: Opioid Reversal Stop: 10/08/17 23:22 Potassium Chloride (Potassium Chloride) 10 meq PO QAM COUNTS INCLUDE 234 BEDS AT THE [facility] Stop: 10/09/17 09:01 Last Admin: 04/09/17 09:01 Dose: 10 meq Warfarin Sodium (Coumadin Perpt) 1 each PO DAILY@1800 PRN PRN Reason: SEE COMMENTS Stop: 10/09/17 18:01 Warfarin Sodium (Coumadin) 2 mg PO ONCE ONE Stop: 04/09/17 18:01 Laboratory Tests 04/08/17 04/09/17 04/09/17 18:06 04:43 04:43 Hgb 11.2 L Creatinine 1.21 H Troponin I < 0.03 - Imaging and Cardiology Chest Xray: report reviewed Stress Test: report reviewed Echo: report reviewed - EKG Interpretation EKG results cardiology: personally reviewed (ECG with a.fib, HR 73. Lateral ST depression noted.), other (Telemetry reviewed with average HR previous 12 hours noted to be 84, atrial fibrillation. PVCs noted. Minimum HR 56@ 0244.) Consult Discharge Plan - Plan Referrals: Blaire Olivo, TEACHER CCLC [Primary Care Provider] - <uMlugeta Moreno - Last Filed: 04/09/17 18:52> Date of Encounter: 04/09/17 - Attending Attestation I have personally performed a face to face evaluation on this patient. I have reviewed and agree with the care plan. History and Exam by me shows: 76 YOF with second episode of bradycardia noted at an outside hospital. Patient has been taken off CCB by EP and Coreg dropped to 12.5 mg BID. Patient is slighty confused about her pills and seems has refilled both the BB and CCB ( cardiazem 360mg). We will hold her CCB and restart her Coreg at 12.5mg BID as long as HR above 55 Assessment and Plan Discussion w patient/family: The assessment and plan as outlined above was discussed with the patient and/or family members who expressed understanding and agreement. All questions were answered. Thank you for involving us in the care of your patient. Please call with any questions. History of Present Illness History of present illness: Ms. Smith is a 76 year old female All Systems Review: A 10-system review of systems was performed and is negative for pertinent findings except as documented above in the HPI. Physical Examination Vital Signs, Last 4 Hours Temp Pulse Resp BP Pulse Ox 04/09/17 14:59 98.8 F 94 12 155/69 96 Results 04/09/17 04:43 04/09/17 04:43 Lab Results 04/09/17 04/09/17 04/09/17 04:43 04:43 04:43 WBC 7.9 Hgb 11.2 L Hct 35.6 Plt Count 223 INR 3.3 Sodium 144 Potassium 3.8 Chloride 105 Carbon Dioxide 32 H BUN 31 H Creatinine 1.21 H Glucose 175 H Calcium 8.9 Magnesium 2.1 TSH 0.129 L
[2017-04-09] MEDS: Famotidine 20 MG TABLET PO SCH (16:42)
[2017-04-09] MEDS: Insulin LISPRO 300 UNITS/3 ML VIAL SQ SCH (16:45)
[2017-04-09 17:20] LABS: Bilirubin,Urine Negative (Negative); Blood,Urine Negative (Negative); Clarity,Urine Clear (Clear); Color,Urine Yellow (Yellow); Glucose,Urine (UA) Normal (Normal); Ketones,Urine Negative (Negative); Leukocyte Esterase,Urine Negative (Negative); Nitrite,Urine Negative (Negative); Protein,Urine 100 mg/dL (Neg-Trace); Specific Gravity,Urine 1.012 (1.010-1.025); Urobilinogen,Urine Normal (Normal)
[2017-04-09 17:23] LABS: Bacteria,Urine None Seen per hpf (None-Few); Hyaline Casts,Urine None Seen per lpf (None-Few); RBC,Urine 0-3 per hpf (0-3); Squamous Epithelial Cell,Urine Moderate per lpf (None-Few); WBC,Urine 0-3 per hpf (0-3)
[2017-04-09] MEDS ORDERED: Warfarin perPT PO PRN (18:00)
[2017-04-09] MEDS ORDERED: *HR* Warfarin 2 MG TABLET PO ONE (18:00)
[2017-04-09] MEDS ORDERED: *HR* Warfarin 2.5 MG TABLET PO SCH (23:19)
[2017-04-10 04:02] LABS: Basophils # 0.1 K/mcL (0.0-0.2); Basophils % 0.8 %; Eosinophils # 0.1 K/mcL (0.0-0.6); Eosinophils % 0.7 %; Hematocrit 37.3 % (35.3-44.9); Hemoglobin 11.6 g/dL (11.5-15.4); Immature Granulocytes % 0.9 % (0-4); Lymphocytes % 26.9 %; Mean Corpuscular HGB Conc 31.1 g/dL (31.6-35.5); Mean Corpuscular Volume 86.9 fL (83.0-100.0); Mean Platelet Volume 10.8 fL (9.4-12.4); Monocytes # 0.9 K/mcL (0.0-1.3); Monocytes % 11.9 %; Neutrophils # 4.4 K/mcL (1.6-8.9); Platelet Count 222 K/mcL (140-400); Red Blood Count 4.29 M/mcL (3.82-4.97); Red Cell Distribution Width 15.1 % (11.5-14.5); Segmented Neutrophils % 58.8 %
[2017-04-10 04:03] LABS: INR 3.8
[2017-04-10 04:17] LABS: Calcium 8.7 mg/dL (8.6-10.3); Magnesium 1.8 mg/dL (1.6-2.6)
[2017-04-10] MEDS ORDERED: Diltiazem CD (24hr) 180 MG CAPSULE PO SCH (09:00)
[2017-04-10] MEDS: Famotidine 20 MG TABLET PO SCH ×2 (09:12→17:14)
[2017-04-10] MEDS: Magnesium Oxide 400 MG TABLET PO SCH (09:12)
[2017-04-10] MEDS: Furosemide 40 MG TABLET PO SCH (09:12)
[2017-04-10] MEDS: Aspirin 81 MG TAB.CHEW PO SCH (09:12)
[2017-04-10] MEDS: Insulin LISPRO 300 UNITS/3 ML VIAL SQ SCH ×3 (09:16→17:14)
[2017-04-10 09:38] LABS: Basophils # 0.1 K/mcL (0.0-0.2); Basophils % 0.8 %; Eosinophils # 0.1 K/mcL (0.0-0.6); Eosinophils % 0.6 %; Hematocrit 39.3 % (35.3-44.9); Hemoglobin 12.3 g/dL (11.5-15.4); Immature Granulocytes % 1.4 % (0-4); Lymphocytes # 1.7 K/mcL (0.6-4.6); Lymphocytes % 20.3 %; Mean Corpuscular HGB Conc 31.3 g/dL (31.6-35.5); Mean Corpuscular Hemoglobin 27.2 pg (28.0-33.3); Mean Corpuscular Volume 86.9 fL (83.0-100.0); Mean Platelet Volume 10.6 fL (9.4-12.4); Monocytes # 0.9 K/mcL (0.0-1.3); Monocytes % 10.8 %; Neutrophils # 5.7 K/mcL (1.6-8.9); Platelet Count 236 K/mcL (140-400); Red Blood Count 4.52 M/mcL (3.82-4.97); Red Cell Distribution Width 15.1 % (11.5-14.5); Segmented Neutrophils % 66.1 %
--- NOTE | 2017-04-10 12:56 | Internal Med Progress Note ---
<CarterEstefanyDixon - Last Filed: 04/10/17 12:53> Date of Encounter: 04/10/17 Time of Encounter: 08:45 - Assessment and plan (1) Chest pain Current Visit: Yes Status: Acute Assessment and plan: New problem this morning Accompanied by SOB and diaphoresis Troponin negative EKG showed a paced rhythm without significant ST segment changes CTA of the aorta was negative for dissection Most likely from increased rate of afib Improved by administration of morning meds Gave 1 L fluids after CTA Qualifiers: Chest pain type: precordial chest pain Qualified Code(s): R07.2 - Precordial pain (2) Hypoglycemia Current Visit: Yes Status: Acute Assessment and plan: Resolved Patient has not required any sliding scale insulin while in the hospital so far Patient likely to be discharged on EITHER 10 units of Levemir OR low dose sliding scale (3) Bradycardia Current Visit: Yes Status: Acute Assessment and plan: Appreciate cardiology recommendations Patient was to be started on coreg 12.5 mg, but she was given 25 mg this morning considering her uncontrolled heart rate this morning If she remains uncontrolled, we may need to restart cardizem Patient to follow up with cardiology in the outpatient setting (4) Atrial fibrillation Current Visit: Yes Status: Chronic Assessment and plan: See plan of care above Qualifiers: Atrial fibrillation type: persistent Qualified Code(s): I48.1 - Persistent atrial fibrillation (5) Hypertension Current Visit: Yes Status: Chronic Assessment and plan: Elevated this morning better controlled since administration of morning meds Qualifiers: Hypertension type: essential hypertension Qualified Code(s): I10 - Essential (primary) hypertension (6) Chronic obstructive pulmonary disease Current Visit: Yes Status: Chronic Assessment and plan: Stable Qualifiers: COPD type: unspecified COPD Qualified Code(s): J44.9 - Chronic obstructive pulmonary disease, unspecified (7) Anticoagulated on Coumadin Current Visit: Yes Status: Acute Assessment and plan: INR 3.8 this morning Holding coumadin (8) Supratherapeutic INR Current Visit: Yes Status: Acute Assessment and plan: See plan of care above (9) Hypothyroidism Current Visit: No Status: Chronic Assessment and plan: Continue home levothyroxine Qualifiers: Hypothyroidism type: unspecified Qualified Code(s): E03.9 - Hypothyroidism , unspecified (10) HLD (hyperlipidemia) Current Visit: Yes Status: Chronic Assessment and plan: Continue atorvastatin Qualifiers: Hyperlipidemia type: pure hypercholesterolemia Qualified Code(s): E78.00 - Pure hypercholesterolemia, unspecified; E78.0 - Pure hypercholesterolemia (11) Thoracic aortic aneurysm without rupture Current Visit: No Status: Chronic Assessment and plan: CTA showed stable size without dissection - Subjective Interval history: Patient reported significant shortness of breath, diaphoresis, and CP radiating to her back this morning. SpO2 also dropped to 85%. This improved with administration of morning medications and 2L of fluid. - Constitutional Vitals: Temp Pulse Resp BP Pulse Ox 98.2 F 98 14 134/82 96 04/10/17 11:20 04/10/17 11:20 04/10/17 11:20 04/10/17 11:20 04/10/17 11:20 General appearance: Present: cooperative, A&O X 3, pleasant, no acute distress, answers questions appropriately - Head Head exam: Present: atraumatic, normal inspection, normocephalic - ENT ENT exam: Present: mucous membranes moist - Neck Neck exam general surgery: Present: trachea midline - Respiratory Respiratory exam: Present: CTAB. Absent: accessory muscle use, respiratory distress - Cardiovascular Cardiovascular exam: Present: irregular rhythm, +S1, +S2, tachycardia Additional comments: BP repeated: LUE 168/88, RUE 166/90 - Extremities Exam Extremities exam: Absent: pedal edema - Psychiatric Psychiatric exam: Present: normal affect, normal mood. Absent: agitated, anxious Internal Medicine: Result - Labs CBC & Chem 7: 04/10/17 09:28 04/10/17 03:28 Labs: Short CBC 04/10/17 04/10/17 Range/Units 03:28 09:28 WBC 7.5 8.6 (4.3-11.1) K/mcL Hgb 11.6 12.3 (11.5-15.4) g/dL Hct 37.3 39.3 (35.3-44.9) % Plt Count 222 236 (140-400) K/mcL Neutrophils # 4.4 5.7 (1.6-8.9) K/mcL BMP 04/10/17 03:28 Sodium 143 Potassium 4.0 Chloride 107 Carbon Dioxide 30 H BUN 24 H Creatinine 1.26 H Glucose 124 H Calcium 8.7 Cardiac Enzymes 04/10/17 Range/Units 09:26 Troponin I 0.03 (< 0.04) ng/mL Urine 04/09/17 Range/Units 17:08 Urine Color Yellow (Yellow) Urine Clarity Clear (Clear) Urine pH 7.0 (5.0-8.0) pH Units Ur Specific [place] 1.012 (1.010-1.025) Urine Protein 100 H (Neg-Trace) mg/dL Urine Glucose (UA) Normal (Normal) mg/dL - ABG Interpretation ABG results: PT/INR, D-dimer PT 42.0 Seconds (9.4-12.1) H 04/10/17 03:28 - Impressions Impressions Chest CTA 04/10/17 09:51 IMPRESSION: 1. Stable aneurysm of the ascending thoracic aorta. There is no underlying dissection. 2. Small bilateral pleural effusions are new. No focal consolidation in the lungs. Mild hilar lymph node enlargement on the right. 3. No significant findings in the abdomen or pelvis. D/ / Wilfred Morillo MD / Wilfred Morillo MD Interpreting Provider: Wilfred Morillo MD Consult Discharge Plan - Plan Referrals: Blaire Olivo CNP [Primary Care Provider] - <Preston Pace T - Last Filed: 04/10/17 14:07> Date of Encounter: 04/10/17 - Constitutional Vitals: Temp Pulse Resp BP Pulse Ox 98.2 F 98 14 134/82 96 04/10/17 11:20 04/10/17 11:20 04/10/17 11:20 04/10/17 11:20 04/10/17 11:20 Internal Medicine: Result - Labs CBC & Chem 7: 04/10/17 09:28 04/10/17 03:28 Labs: Short CBC 04/10/17 04/10/17 Range/Units 03:28 09:28 WBC 7.5 8.6 (4.3-11.1) K/mcL Hgb 11.6 12.3 (11.5-15.4) g/dL Hct 37.3 39.3 (35.3-44.9) % Plt Count 222 236 (140-400) K/mcL Neutrophils # 4.4 5.7 (1.6-8.9) K/mcL BMP 04/10/17 03:28 Sodium 143 Potassium 4.0 Chloride 107 Carbon Dioxide 30 H BUN 24 H Creatinine 1.26 H Glucose 124 H Calcium 8.7 Cardiac Enzymes 04/10/17 Range/Units 09:26 Troponin I 0.03 (< 0.04) ng/mL Urine 04/09/17 Range/Units 17:08 Urine Color Yellow (Yellow) Urine Clarity Clear (Clear) Urine pH 7.0 (5.0-8.0) pH Units Ur Specific [place] 1.012 (1.010-1.025) Urine Protein 100 H (Neg-Trace) mg/dL Urine Glucose (UA) Normal (Normal) mg/dL - ABG Interpretation ABG results: PT/INR, D-dimer PT 42.0 Seconds (9.4-12.1) H 04/10/17 03:28 - Impressions Impressions Chest CTA 04/10/17 09:51 IMPRESSION: 1. Stable aneurysm of the ascending thoracic aorta. There is no underlying dissection. 2. Small bilateral pleural effusions are new. No focal consolidation in the lungs. Mild hilar lymph node enlargement on the right. 3. No significant findings in the abdomen or pelvis. D/ / Wilfred Morillo MD / Wilfred Morillo MD Interpreting Provider: Wilfred Morillo MD - Attending Attestation I examined this patient and my medical decision-making was reviewed with the Resident Physician on 04/10/17. I agree with the documented findings, disposition and treatment plan as described except to the extent set forth below. 76 F with PMH of Hypothyroidism, CHF, Afib on Warfarin, CAD s/p CABG, DM admitted following an episode of hyoglycemia and bradycardia, A1C is 6.6 and she has been on her current insulin regimen for 3 months. She was recently discharged for [facility] when her medications were adjusted, she seems not to be sure of which pill she takes. She has no new complain. FS has improved with dextrose, HR has been stable. Cardio eval noted, to discontinue cardizem and restart coreg at a low dose, no intervention planned Today, she developed Afib with RVR, HR 130-145 accompanied by pressure like chest pain, radiating to her back She denied diaphoresis Repeat Hb was stable, trop negative, EKG paced Her chest pain improved with administration of coreg and diltiazem STAT CTAorta showed -Stable aneurysm of the ascending thoracic aorta. There is no underlying dissection.Small bilateral pleural effusions are new. No focal consolidation in the lungs. Mild hilar lymph node enlargement on the right. Physical exam is remarkable for a LSM. Chest is CTAB. No neuro deficits, abdomen is soft and not tender. No pedal edema Labs and Imaging reviewed: INR supratherapeutic, CBC stable, Trop negative Assessment: Hypoglycemia and Bradycardia, consider BB overdose, hold levemir, continue sliding scale only, FS has been controlled without insulin Resume coreg May consider resuming diltiazem at lower dose if HR remain uncontrolled TSH noted to be low, patient's HR was controlled prior to holding of meds, will leave adjusting synthroid to PCP Rest as in resident physician's documentation
[2017-04-11 03:46] LABS: Hemoglobin 11.7 g/dL (11.5-15.4); Mean Corpuscular HGB Conc 31.6 g/dL (31.6-35.5); Mean Corpuscular Hemoglobin 27.7 pg (28.0-33.3); Mean Corpuscular Volume 87.5 fL (83.0-100.0); Platelet Count 218 K/mcL (140-400); Red Blood Count 4.23 M/mcL (3.82-4.97)
[2017-04-11 03:51] LABS: INR 2.4; Prothrombin Time 26.3 Seconds (9.4-12.1)
[2017-04-11 04:05] LABS: Calcium 8.8 mg/dL (8.6-10.3); Magnesium 1.9 mg/dL (1.6-2.6); Potassium 4.2 mEq/L (3.5-5.1)
[2017-04-11] MEDS ORDERED: Nitroglycerin 0.4 MG TAB.SUBL SL ONE (05:43)
[2017-04-11] MEDS ORDERED: Nitroglycerin 0.4 MG TAB.SUBL SL PRN (05:47)
[2017-04-11] MEDS ORDERED: *HR* Metoprolol 5 MG/5 ML VIAL IVP ONE (06:01)
[2017-04-11] MEDS ORDERED: cefTRIAXone 1,000 MG in Water for inj. (sterile) 20 ML 10 ML IVP SCH (09:00)
[2017-04-11] MEDS ORDERED: Diltiazem CD (24hr) 120 MG CAPSULE PO SCH (09:00)
[2017-04-11] MEDS: Furosemide 40 MG TABLET PO SCH (09:40)
[2017-04-11] MEDS: Aspirin 81 MG TAB.CHEW PO SCH (09:40)
[2017-04-11] MEDS: Famotidine 20 MG TABLET PO SCH ×2 (09:40→17:31)
[2017-04-11] MEDS: Magnesium Oxide 400 MG TABLET PO SCH (09:41)
[2017-04-11] MEDS: Insulin LISPRO 300 UNITS/3 ML VIAL SQ SCH ×3 (09:55→20:13)
--- NOTE | 2017-04-11 13:37 | Electrocardiograph Report ---
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
--- NOTE | 2017-04-11 14:04 | Electrocardiograph Report ---
[place] [id number] Test Date: 2017-04-10 Pat Name: Alejandra Smith Department: 111 Room: 2NE29 Gender: F Bed Operator: MOOSE : 1940 Requested By: Preston Pace Order Number: [id number] Reading MD: Alicia Sethi Measurements Intervals [place] Rate: 96 P: 66 [place]: 331 QRS: 74 QRSD: 106 T: 51 QT: 357 QTc: 410 Interpretive Statements ARTIFACT LIMITS INTERPRETATION Electronically Signed On 04-11-2017 14:02:38 EST by Alicia Sethi
--- NOTE | 2017-04-11 15:22 | Electrocardiograph Report ---
[place] [id number] Test Date: 2017-04-08 Pat Name: Alejandra Smith Department: 102 Room: 2NE29 Gender: F Clicker Operator: : 1940 Requested By: Yrn Connolly Order Number: [id number] Reading MD: Alicia Sethi Measurements Intervals [place] Rate: 73 P: 247 [place]: 350 QRS: 48 QRSD: 113 T: -23 QT: 419 QTc: 444 Interpretive Statements ARTIFACT LIMITS INTERPRETATION Electronically Signed On 04-11-2017 15:20:37 EST by Alicia Sethi
[2017-04-11] MEDS ORDERED: D5% in Water 1,000 ML IVC PRN (16:07)
[2017-04-11] MEDS ORDERED: *HR* Dextrose 50 % in Water (Syg) 50 ML SYRINGE IVP PRN (16:07)
[2017-04-11] MEDS ORDERED: Dextrose Gel 15 GM/37.5 ML TUBE PO PRN ×2 (16:07)
--- NOTE | 2017-04-11 16:22 | Internal Med Progress Note ---
<Jarrett Jackson - Last Filed: 04/11/17 16:34> Date of Encounter: 04/11/17 Time of Encounter: 10:00 - Assessment and plan (1) Bradycardia Current Visit: Yes Status: Acute Assessment and plan: Resolved. No repeat episode of bradycardia since admission. Patient's heart rate is better controlled. Cardizem restarted. Patient denies SOB, diaphoresis, Chest pain. Continue coreg 25 mg daily. (2) Chest pain Current Visit: Yes Status: Acute Assessment and plan: Resolved. CP likely from uncontrolled heart rate. Qualifiers: Chest pain type: precordial chest pain Qualified Code(s): R07.2 - Precordial pain (3) Hypoglycemia Current Visit: Yes Status: Acute Assessment and plan: Resolved. Continue to check POC glucose. (4) Hypothyroidism Current Visit: No Status: Chronic Assessment and plan: Continue home levothyroxine. Qualifiers: Hypothyroidism type: unspecified Qualified Code(s): E03.9 - Hypothyroidism , unspecified (5) Anticoagulated on Coumadin Current Visit: Yes Status: Acute Assessment and plan: INR is therapeutic. Restart Coumadin. (6) Dyslipidemia Current Visit: No Status: Chronic Assessment and plan: Continue atorvastatin. (7) Diabetes type 2, controlled Current Visit: No Status: Chronic Assessment and plan: Well controlled. Continue low dose SSI Qualifiers: Diabetes mellitus complication status: with unspecified complications Diabetes mellitus bed bug exterminator insulin use: unspecified fpc insulin use status Qualified Code(s): E11.8 - Type 2 diabetes mellitus with unspecified complications (8) Thoracic aortic aneurysm without rupture Current Visit: No Status: Chronic Assessment and plan: Stable without dissection. - Subjective Interval history: Patient is feeling better today. She denies palpitations or feelings of slow heart rate. She does report continued lack of appetite. Denies any fever, chills , nausea, vomiting, SOB, cough, CP, diarrhea, constipation, abdominal pain, dysuria, hematuri. Reports normal void and bowel movement. - Constitutional Vitals: Temp Pulse Resp BP Pulse Ox 99.3 F 129 18 152/100 99 04/11/17 15:55 04/11/17 15:55 04/11/17 15:55 04/11/17 15:55 04/11/17 15:55 General appearance: Present: cooperative, A&O X 3, pleasant, no acute distress, answers questions appropriately - Head Head exam: Present: atraumatic - Eye Eye exam: Present: normal appearance - Neck Neck exam general surgery: Present: full ROM, supple, trachea midline - Respiratory Respiratory exam: Present: CTAB. Absent: accessory muscle use, tachypnea - Cardiovascular Cardiovascular exam: Present: systolic murmur (2/6), tachycardia. Absent: bradycardia, gallop, rubs - GI/Abdominal GI/Abdominal exam: Present: normal bowel sounds, soft. Absent: guarding, rebound, tenderness - Extremities Exam Extremities exam: Present: full ROM, radial pulses palpable and symmetrical. Absent: pedal edema - Neurological Exam Neurological exam: Present: alert, CN II-XII intact, oriented X3, reflexes normal, no focal deficits - Skin Skin exam: Present: normal color. Absent: abrasion, cyanosis, diaphoretic, petechiae, rash Internal Medicine: Result - Labs CBC & Chem 7: 04/11/17 03:10 04/11/17 03:10 Labs: Short CBC 04/11/17 Range/Units 03:10 WBC 7.5 (4.3-11.1) K/mcL Hgb 11.7 (11.5-15.4) g/dL Hct 37.0 (35.3-44.9) % Plt Count 218 (140-400) K/mcL BMP 04/11/17 03:10 Sodium 143 Potassium 4.2 Chloride 107 Carbon Dioxide 31 H BUN 27 H Creatinine 1.13 Glucose 126 H Calcium 8.8 - ABG Interpretation ABG results: PT/INR, D-dimer PT 26.3 Seconds (9.4-12.1) H 04/11/17 03:10 Consult Discharge Plan - Plan Referrals: Blaire Olivo, SECURITY ASSESSOR [Primary Care Provider] - <Preston Pace T - Last Filed: 04/11/17 17:13> Date of Encounter: 04/11/17 - Constitutional Vitals: Temp Pulse Resp BP Pulse Ox 99.3 F 129 18 152/100 99 04/11/17 15:55 04/11/17 15:55 04/11/17 15:55 04/11/17 15:55 04/11/17 15:55 Internal Medicine: Result - Labs CBC & Chem 7: 04/11/17 03:10 04/11/17 03:10 Labs: Short CBC 04/11/17 Range/Units 03:10 WBC 7.5 (4.3-11.1) K/mcL Hgb 11.7 (11.5-15.4) g/dL Hct 37.0 (35.3-44.9) % Plt Count 218 (140-400) K/mcL BMP 04/11/17 03:10 Sodium 143 Potassium 4.2 Chloride 107 Carbon Dioxide 31 H BUN 27 H Creatinine 1.13 Glucose 126 H Calcium 8.8 - ABG Interpretation ABG results: PT/INR, D-dimer PT 26.3 Seconds (9.4-12.1) H 04/11/17 03:10 - Attending Attestation I examined this patient and my medical decision-making was reviewed with the Resident Physician on 04/11/17. I agree with the documented findings, disposition and treatment plan as described except to the extent set forth below. 76 F with PMH of Hypothyroidism, CHF, Afib on Warfarin, CAD s/p CABG, DM admitted following an episode of hypoglycemia and bradycardia, A1C is 6.6 and she has been on her current insulin regimen for 3 months. She was recently discharged for [facility] when her medications were adjusted, she seems not to be sure of which pill she takes. She has no new complain. FS has improved with dextrose, HR has been stable. Cardio eval noted, signed off She has no new complains Afib is uncontrolled Physical exam is remarkable for a LSM. Chest is CTAB. No neuro deficits, abdomen is soft and not tender. No pedal edema Labs and Imaging reviewed: INR therapeutic, CBC stable, Trop negative. Urine culture with proteus Assessment: Hypoglycemia and Bradycardia-resolved, resume cardizem and titrate prn Continue sliding scale Urine finding is incidental, patients urine is clean, and she has no urinary symptoms, continue ceftriaxone, ascertain results from lab, continue other current management Rest as in resident physician's documentation
[2017-04-11] MEDS ORDERED: *HR* Warfarin 2 MG TABLET PO ONE (18:00)
[2017-04-11] MEDS ORDERED: Acetaminophen 325 MG TABLET PO PRN (18:26)
[2017-04-12 06:09] LABS: INR 1.8; Prothrombin Time 19.9 Seconds (9.4-12.1)
[2017-04-12 06:30] LABS: Calcium 8.4 mg/dL (8.6-10.3); Potassium 4.3 mEq/L (3.5-5.1)
[2017-04-12 06:32] LABS: Basophils % 0.3 %; Eosinophils # 0.2 K/mcL (0.0-0.6); Eosinophils % 1.5 %; Hematocrit 38.8 % (35.3-44.9); Hemoglobin 12.1 g/dL (11.5-15.4); Immature Granulocytes % 0.9 % (0-4); Lymphocytes # 0.2 K/mcL (0.6-4.6); Lymphocytes % 1.7 %; Mean Corpuscular HGB Conc 31.2 g/dL (31.6-35.5); Mean Corpuscular Hemoglobin 27.2 pg (28.0-33.3); Mean Corpuscular Volume 87.2 fL (83.0-100.0); Mean Platelet Volume 11.3 fL (9.4-12.4); Monocytes # 0.3 K/mcL (0.0-1.3); Monocytes % 2.5 %; Platelet Count 206 K/mcL (140-400); Red Blood Count 4.45 M/mcL (3.82-4.97); Red Cell Distribution Width 15.4 % (11.5-14.5); Segmented Neutrophils % 93.1 %
[2017-04-12] MEDS ORDERED: levoFLOXacin 750 MG TABLET PO ONE (07:58)
[2017-04-12] MEDS: Diltiazem CD (24hr) 180 MG CAPSULE PO SCH (09:44)
[2017-04-12] MEDS: Furosemide 40 MG TABLET PO SCH (09:45)
[2017-04-12] MEDS: Magnesium Oxide 400 MG TABLET PO SCH (09:45)
[2017-04-12] MEDS: Famotidine 20 MG TABLET PO SCH ×2 (09:45→17:36)
[2017-04-12] MEDS: Aspirin 81 MG TAB.CHEW PO SCH (09:45)
[2017-04-12] MEDS: Insulin LISPRO 300 UNITS/3 ML VIAL SQ SCH ×3 (09:46→17:37)
--- NOTE | 2017-04-12 10:06 | Discharge Summary ---
Date of Encounter: 04/12/17 Time of Encounter: 09:30 - Discharge Diagnosis (1) Allergic reaction caused by a drug Priority: Primary Status: Acute Comments: Patient (2) Bradycardia Priority: Primary Status: Acute (3) Chest pain Priority: Secondary Status: Acute Qualifiers: Chest pain type: precordial chest pain Qualified Code(s): R07.2 - Precordial pain (4) Hypoglycemia Priority: Primary Status: Acute (5) Hypothyroidism Priority: Secondary Status: Chronic Qualifiers: Hypothyroidism type: unspecified Qualified Code(s): E03.9 - Hypothyroidism , unspecified (6) Anticoagulated on Coumadin Priority: Secondary Status: Acute (7) Dyslipidemia Priority: Secondary Status: Chronic (8) Diabetes type 2, controlled Priority: Secondary Status: Chronic Qualifiers: Diabetes mellitus complication status: with unspecified complications Diabetes mellitus mcc insulin use: unspecified terminal system operator insulin use status Qualified Code(s): E11.8 - Type 2 diabetes mellitus with unspecified complications (9) Thoracic aortic aneurysm without rupture Priority: Secondary Status: Chronic - Discharge Medications Home Medications: Atorvastatin [Lipitor] 40 mg PO HS 05/03/15 [History] Magnesium Oxide [Magnesium] 400 mg PO QAM 05/03/15 [History] Potassium Chloride [K-Tab ER] 10 meq PO QAM 05/03/15 [History] Aspirin 81 mg PO QAM 07/06/15 [History] Insulin ASPART [Novolog Flexpen] 10 unit SQ TIDWM 07/06/15 [History] Warfarin [Coumadin] 2.5 mg PO SUMOTUWESA 08/24/15 [History] Insulin DETEMIR [Levemir Flextouch] 25 unit SQ HS 04/16/16 [History] Diltiazem HCl [Diltiazem 24Hr Cd] 360 mg PO DAILY 08/02/16 [History] Carvedilol [Coreg] 25 mg PO BID 04/04/17 [History] Cholecalciferol (Vitamin D3) [Vitamin D3] 50,000 unit PO SA 04/04/17 [History] Levothyroxine Sodium [Levo-T] 200 mcg PO DAILY 04/04/17 [History] Liothyronine Sodium [Cytomel] 5 mcg PO DAILY 04/04/17 [History] Liraglutide [Victoza 2-Elias] 1.2 mg SQ DAILY 04/04/17 [History] Losartan [Cozaar] 50 mg PO BID 04/04/17 [History] Ranitidine HCl [Zantac] 150 mg PO BID 04/04/17 [History] Furosemide [Lasix] 40 mg PO DAILY #30 tablet 04/06/17 [Rx] Allergies/Adverse Reactions: 3 Allergy/AdvReac Type Severity Reaction Status Date / Time nitroglycerin AdvReac Nausea Verified 04/11/17 11:30 Procedures/tests Complete & Pending: Procedures Performed prior 72 hours Category Date Time Status CT angio abdomen pelvis [CT] Stat Cat Scan 04/10/17 09:[address] angio chest [CT] Stat Cat Scan 04/10/17 09:51 Completed ECG 12 lead ECG [ECG] Routine Y 04/11/17 05:52 Completed EKG [ECG 12 lead ECG] [ECG] Stat Y 04/10/17 09:06 Ordered EKG [ECG 12 lead ECG] [ECG] Stat Y 04/10/17 09:35 Completed Date of admission: 04/08/17 23:21 Primary care physician: Blaire Olivo Consults: 04/08/17 23:37 Consult to Cardiology [CONS] Routine Comment: Consulting Provider: Cardiology Nguyen Reason for Consult: bradycardia. hx of Afib Call Completed: No 04/11/17 11:35 Consult to Celery Wrapper [CONS] Routine Reason for SW Consult: Poor home envronment/concerns for patient safety Discharging clinician: Jarrett Jackson Anticipated date of discharge: 04/12/17 - Patient Status Condition: Good - Discharge Instructions Follow Up With: Blaire Olivo, SCAGLIOLA MECHANIC [Primary Care Provider] - Hospital course: Ms. Smith is a 76 year old female - Time Spent with Patient Total time spent providing and/or coordinating discharge services: - Constitutional Vitals: Temp Pulse Resp BP Pulse Ox 98.7 F 90 16 124/86 100 04/12/17 07:12 04/12/17 07:12 04/12/17 07:12 04/12/17 07:12 04/12/17 07:12 General appearance: Present: cooperative, A&O X 3, pleasant, no acute distress, answers questions appropriately - Head Head exam: Present: atraumatic - Eye Eye exam: Present: conjuntiva pink Additional comments: right periorbital swelling - Neck Neck exam general surgery: Present: full ROM, supple, trachea midline - Respiratory Respiratory exam: Present: CTAB. Absent: accessory muscle use, rales, rhonchi, wheezes - Cardiovascular Cardiovascular exam: Present: RRR. Absent: gallop, irregular rhythm, rubs - GI/Abdominal GI/Abdominal exam: Present: normal bowel sounds, soft. Absent: bruit, guarding , rebound, tenderness - Extremities Exam Extremities exam: Present: pedal edema, warm, radial pulses palpable and symmetrical Additional comments: bilateral upper extremity swelling and tenderness with pruritis.
[2017-04-12] MEDS ORDERED: Famotidine 20 MG/2 ML VIAL IVP STA (14:22)
[2017-04-12] MEDS ORDERED: methylPREDNISolone 125 MG/2 ML VIAL IVP STA (14:24)
--- NOTE | 2017-04-12 15:46 | Internal Med Progress Note ---
<Jarrett Jackson - Last Filed: 04/12/17 15:42> Date of Encounter: 04/12/17 Time of Encounter: 10:40 - Assessment and plan (1) Allergic reaction caused by a drug Current Visit: Yes Status: Acute Assessment and plan: Allergic reaction due to Rocephin. Hold medication. Rocephin was prescribed due to incidental finding of Proteus mirabili on urine culture despite negative UA. Called lab and urine sample has been disposed. Patient is asymptomatic. Continue to withhold Rocephin and administer Benadryl 25mg BID as needed. Monitor AM labs. Plan to discharge tomorrow if symptoms improve. Qualifiers: Qualified Code(s): T78.40XA - Allergy, unspecified, initial encounter (2) Bradycardia Current Visit: Yes Status: Acute Assessment and plan: Resolved. No repeat episode of bradycardia since admission. Patient's heart rate is better controlled. Cardizem restarted. Patient denies SOB, diaphoresis, Chest pain. Continue coreg 25 mg daily. (3) Chest pain Current Visit: Yes Status: Acute Assessment and plan: Resolved. CP likely from uncontrolled heart rate. Qualifiers: Chest pain type: precordial chest pain Qualified Code(s): R07.2 - Precordial pain (4) Hypoglycemia Current Visit: Yes Status: Acute Assessment and plan: Resolved. Continue to check POC glucose. (5) Hypothyroidism Current Visit: No Status: Chronic Assessment and plan: Continue home levothyroxine. Qualifiers: Hypothyroidism type: unspecified Qualified Code(s): E03.9 - Hypothyroidism , unspecified (6) Anticoagulated on Coumadin Current Visit: Yes Status: Acute Assessment and plan: INR is therapeutic. Restart Coumadin. (7) Dyslipidemia Current Visit: No Status: Chronic Assessment and plan: Continue atorvastatin. (8) Diabetes type 2, controlled Current Visit: No Status: Chronic Assessment and plan: Well controlled. Continue low dose SSI Qualifiers: Diabetes mellitus complication status: with unspecified complications Diabetes mellitus penitentiary insulin use: unspecified penitentiary insulin use status Qualified Code(s): E11.8 - Type 2 diabetes mellitus with unspecified complications (9) Thoracic aortic aneurysm without rupture Current Visit: No Status: Chronic Assessment and plan: Stable without dissection. - Time Spent With Patient 25 - 35 minutes - Subjective Interval history: 76F presents with symptomatic hypoglycemia and bradycardia, currently resolved. Patient received dose of Rocephin yesterday and developed right periorbital swelling and pruritus, and diffuse pruritus throughout her extremities. She denies dizziness, palpitations, chest pain, shortness of breath, f/c/n/v, diarrhea, constipation, dysuria, hematuria. Has no further complaints. - Constitutional Vitals: Temp Pulse Resp BP Pulse Ox 99.2 F 86 20 113/72 100 04/12/17 15:01 04/12/17 15:01 04/12/17 15:04/12/17 15:04/12/17 15:01 General appearance: Present: cooperative, A&O X 3, pleasant, no acute distress, answers questions appropriately - Head Head exam: Present: atraumatic, normocephalic - Eye Eye exam: Present: EOMI, periorbital swelling, periorbital tenderness. Absent: nystagmus Additional comments: right periorbital edema. - ENT ENT exam: Present: mucous membranes dry - Neck Neck exam general surgery: Present: normal inspection, supple, trachea midline - Respiratory Respiratory exam: Present: CTAB. Absent: rales, rhonchi, wheezes - Cardiovascular Cardiovascular exam: Present: RRR, +S1, +S2. Absent: diastolic murmur, rubs, systolic murmur - GI/Abdominal GI/Abdominal exam: Present: normal bowel sounds, soft, no peritoneal signs. Absent: guarding, splenomegaly - Extremities Exam Extremities exam: Present: warm, radial pulses palpable and symmetrical. Absent : cyanotic Additional comments: rash noted on all extremities with reported pruritus. - Neurological Exam Neurological exam: Present: altered, CN II-XII intact, oriented X3. Absent: facial droop, speech deficit - Skin Skin exam: Present: rash, urticaria (all extremities) - Expanded Skin Exam Description of rash: Present: erythematous, tenderness, urticarial. Absent: discharge Internal Medicine: Result - Labs CBC & Chem 7: 04/12/17 05:35 04/12/17 05:35 Labs: Short CBC 04/12/17 Range/Units 05:35 WBC 12.9 H D (4.3-11.1) K/mcL Hgb 12.1 (11.5-15.4) g/dL Hct 38.8 (35.3-44.9) % Plt Count 206 (140-400) K/mcL Neutrophils # 12.0 H (1.6-8.9) K/mcL [facility] 04/12/17 05:35 Sodium 137 Potassium 4.3 Chloride 104 Carbon Dioxide 24 BUN 31 H Creatinine 1.36 H Glucose 134 H Calcium 8.4 L - ABG Interpretation ABG results: PT/INR, D-dimer PT 19.9 Seconds (9.4-12.1) H 04/12/17 05:35 Consult Discharge Plan - Plan Referrals: Blaire Olivo, STRONG NITRIC OPERATOR [Primary Care Provider] - <Preston Pace - Last Filed: 04/12/17 15:58> Date of Encounter: 04/12/17 - Constitutional Vitals: Temp Pulse Resp BP Pulse Ox 99.2 F 86 20 113/72 100 04/12/17 15:01 04/12/17 15:01 04/12/17 15:01 04/12/17 15:01 04/12/17 15:01 Internal Medicine: Result - Labs CBC & Chem 7: 04/12/17 05:35 04/12/17 05:35 Labs: Short CBC 04/12/17 Range/Units 05:35 WBC 12.9 H D (4.3-11.1) K/mcL Hgb 12.1 (11.5-15.4) g/dL Hct 38.8 (35.3-44.9) % Plt Count 206 (140-400) K/mcL Neutrophils # 12.0 H (1.6-8.9) K/mcL [facility] 04/12/17 05:35 Sodium 137 Potassium 4.3 Chloride 104 Carbon Dioxide 24 BUN 31 H Creatinine 1.36 H Glucose 134 H Calcium 8.4 L - ABG Interpretation ABG results: PT/INR, D-dimer PT 19.9 Seconds (9.4-12.1) H 04/12/17 05:35 - Attending Attestation I examined this patient and my medical decision-making was reviewed with the Resident Physician on 04/12/17. I agree with the documented findings, disposition and treatment plan as described except to the extent set forth below. 76 F with PMH of Hypothyroidism, CHF, Afib on Warfarin, CAD s/p CABG, DM admitted following an episode of hypoglycemia and bradycardia, A1C is 6.6 and she has been on her current insulin regimen for 3 months. She was recently discharged for [facility] when her medications were adjusted, she seems not to be sure of which pill she takes. She has no new complain. FS has improved with dextrose, HR has been stable. Cardio evzofia noted, signed off She has no new complains Afib is uncontrolled Overnight, she developed facial edema, skin rash and itching . She did not have abdominal pain or diarrhea, symptoms imprved with benadryl This morning, she still has facial swelling , rash is on the trunks and mculopapular. Physical exam is remarkable for a LSM. Chest is CTAB. No neuro deficits, abdomen is soft and not tender. No pedal edema Labs and Imaging reviewed: INR subtherapeutic, CBC stable, Trop negative. Urine culture with proteus Assessment: Hypoglycemia and Bradycardia-resolved, continue current meds, when ready for discharge, we will give only a fraction of her home dose of insulin. Drug reaction: Solumedrol 125mg stat, give prednisone, famotidine and benadryl, keep on tele, monitor closely Continue sliding scale Urine finding is incidental, patients urine is clean, and she has no urinary symptoms, continue ceftriaxone, ascertain results from lab, change to levaquin. continue other current management Rest as in resident physician's documentation
[2017-04-12] MEDS: *HR* Warfarin 2.5 MG TABLET PO SCH (17:37)
[2017-04-13 05:50] LABS: INR 1.6
[2017-04-13] MEDS: Famotidine 20 MG TABLET PO SCH ×2 (08:55→16:28)
[2017-04-13] MEDS: Diltiazem CD (24hr) 180 MG CAPSULE PO SCH (08:55)
[2017-04-13] MEDS: Furosemide 40 MG TABLET PO SCH (08:56)
[2017-04-13] MEDS: Aspirin 81 MG TAB.CHEW PO SCH (08:56)
[2017-04-13] MEDS: Insulin LISPRO 300 UNITS/3 ML VIAL SQ SCH ×3 (08:56→16:30)
[2017-04-13] MEDS: Magnesium Oxide 400 MG TABLET PO SCH (08:56)
[2017-04-13] MEDS ORDERED: Diltiazem SR (12hr) 60 MG CAPSULE PO SCH ×2 (10:24→21:00)
[2017-04-13 12:09] LABS: Basophils % 0.2 %; Hematocrit 37.6 % (35.3-44.9); Hemoglobin 11.8 g/dL (11.5-15.4); Immature Granulocytes % 0.6 % (0-4); Lymphocytes # 0.5 K/mcL (0.6-4.6); Lymphocytes % 5.4 %; Mean Corpuscular HGB Conc 31.4 g/dL (31.6-35.5); Mean Corpuscular Hemoglobin 26.9 pg (28.0-33.3); Mean Corpuscular Volume 85.8 fL (83.0-100.0); Mean Platelet Volume 11.4 fL (9.4-12.4); Monocytes # 0.4 K/mcL (0.0-1.3); Monocytes % 4.2 %; Neutrophils # 8.5 K/mcL (1.6-8.9); Platelet Count 218 K/mcL (140-400); Red Blood Count 4.38 M/mcL (3.82-4.97); Red Cell Distribution Width 15.1 % (11.5-14.5); Segmented Neutrophils % 89.6 %
--- NOTE | 2017-04-13 16:57 | Internal Med Progress Note ---
<Jonatan Ashraf - Last Filed: 04/13/17 16:54> Date of Encounter: 04/13/17 Time of Encounter: 09:30 - Assessment and plan (1) Atrial fibrillation with rapid ventricular response Current Visit: Yes Status: Acute Assessment and plan: Patient has a known history of atrial fibrillation on Cardizem at home - Dajuan Vasc 7, has bled score 3 - Anticoagulated on Coumadin, and are 1.6, pharmacy to dose Plan - Patient was backed off calcium channel chichi and beta chichi due to episode of bradycardia upon presentation to emergency room - We have been slowly increasing dose back to home dose - Patient received Coreg 25 mg twice a day, diltiazem 240 mg daily. Given additional 60 mg short acting Cardizem in the a.m. and again in the p.m. -And then resume normal home dose of diltiazem 360 mg daily tomorrow morning - Asymptomatic and her heart rate has been well controlled this afternoon (2) Bradycardia Current Visit: Yes Status: Acute Assessment and plan: Resolved. No repeat episode of bradycardia since admission. Patient's heart rate is better controlled. Cardizem restarted. Patient denies SOB, diaphoresis, Chest pain. Management of A. fib RVR as above - Seen by cardiology on this admission, recommend follow-up as outpatient (3) Hypoglycemia Current Visit: Yes Status: Resolved Assessment and plan: Resolved. Continue to check POC glucose. - Management of diabetes as below (4) Allergic reaction caused by a drug Current Visit: Yes Status: Resolved Assessment and plan: Resolved - Allergic reaction due to Rocephin. Hold medication. - Rocephin was prescribed due to incidental finding of Proteus mirabili on urine culture despite negative UA. Called lab and urine sample has been disposed. Patient is asymptomatic. Continue to withhold Rocephin and administer Benadryl 25mg BID as needed. - Rocephin added to allergy list Plan -Repeat urine culture. No white blood cell count elevation. Monitor AM labs. Qualifiers: Qualified Code(s): T78.40XA - Allergy, unspecified, initial encounter (5) HTN (hypertension) Current Visit: Yes Status: Chronic Assessment and plan: - We will controlled at 132/70 - Continue Home meds as above Qualifiers: Hypertension type: essential hypertension Qualified Code(s): I10 - Essential (primary) hypertension (6) Hypothyroid Current Visit: Yes Status: Acute Assessment and plan: TSH low at 0.129, free T4 within normal limits at 1.74 Plan - Continue home Synthroid Qualifiers: Hypothyroidism type: acquired Qualified Code(s): E03.9 - Hypothyroidism, unspecified (7) Anticoagulated on Coumadin Current Visit: Yes Status: Acute Assessment and plan: INR is subtherapeutic. 1.6, Restart Coumadin. Pharmacy to dose (8) Chest pain Current Visit: Yes Status: Resolved Assessment and plan: Resolved. CP likely from uncontrolled heart rate. Qualifiers: Chest pain type: unspecified Qualified Code(s): R07.9 - Chest pain, unspecified (9) Diabetes type 2, controlled Current Visit: No Status: Chronic Assessment and plan: - Episode of hypoglycemia upon presentation - most Recent blood sugar this morning and 300s - A1c 6.6% on 04/05/17 Plan - Increase sliding scale insulin to moderate - Advised back basal insulin at 20 units daily at bedtime, home dose of 25 units Qualifiers: Diabetes mellitus complication status: with unspecified complications Diabetes mellitus senior living insulin use: unspecified advanced manager insulin use status Qualified Code(s): E11.8 - Type 2 diabetes mellitus with unspecified complications (10) DVT prophylaxis Current Visit: Yes Status: Acute Assessment and plan: - antiCoagulated on Coumadin for atrial fibrillation - INR 1.6, pharmacy to dose - Time Spent With Patient 25 - 35 minutes - Subjective Interval history: Patient seen and examined this morning. She states that overall she is feeling much better with no symptoms of lightheadedness dizziness, fevers, chills, difficulty breathing, swelling. She was noted to be tachycardic this morning but has a history of atrial fibrillation. She is experiencing no chest pain, no palpitations. - Constitutional Vitals: Temp Pulse Resp BP Pulse Ox 97.7 F 84 14 124/54 97 04/13/17 15:33 04/13/17 15:33 04/13/17 15:33 04/13/17 15:33 04/13/17 15:33 General appearance: Present: cooperative, A&O X 3, pleasant, no acute distress, answers questions appropriately Exam: Gen.: Vitals noted. No acute distress. AAOx3 HEENT: PERRL/EOMI, oropharynx clear, Normocephalic, atraumatic. Airway clear Cardiac: Irregularly irregular rhythm, tachycardia, systolic murmur, +S1/S2 Pulmonary: CTA bilaterally, no wheezes, rales or rhonchi, equal chest expansion Abdomen: soft, nontender, BS noted, no guarding MSK: ROM intact, no joint swelling noted Extremities: Mild erythema on right lower extremity most consistent with venous stasis .no BLE edema, nontender calf, no cyanosis or clubbing Neuro: A&Ox3, moves all extremities, no focal deficits Psych: Appropriate mood and behavior Internal Medicine: Result - Labs CBC & Chem 7: 04/13/17 11:57 04/12/17 05:35 Labs: Short CBC 04/13/17 Range/Units 11:57 WBC 9.5 (4.3-11.1) K/mcL Hgb 11.8 (11.5-15.4) g/dL Hct 37.6 (35.3-44.9) % Plt Count 218 (140-400) K/mcL Neutrophils # 8.5 (1.6-8.9) K/mcL - ABG Interpretation ABG results: PT/INR, D-dimer PT 17.0 Seconds (9.4-12.1) H 04/13/17 05:26 Consult Discharge Plan - Plan Referrals: Blaire Olivo, MARY [Primary Care Provider] - <Jeronimo Hardin - Last Filed: 04/13/17 18:58> Date of Encounter: 04/13/17 - Assessment and plan (1) Atrial fibrillation Current Visit: Yes Status: Chronic Qualifiers: Atrial fibrillation type: persistent Qualified Code(s): I48.1 - Persistent atrial fibrillation (2) Hypothyroidism Current Visit: No Status: Chronic Qualifiers: Hypothyroidism type: acquired Qualified Code(s): E03.9 - Hypothyroidism, unspecified (3) HLD (hyperlipidemia) Current Visit: Yes Status: Chronic Qualifiers: Hyperlipidemia type: mixed hyperlipidemia Qualified Code(s): E78.2 - Mixed hyperlipidemia (4) Hypertension Current Visit: Yes Status: Chronic Qualifiers: Hypertension type: essential hypertension Qualified Code(s): I10 - Essential (primary) hypertension (5) Acute exacerbation of CHF (congestive heart failure) Current Visit: No Status: Acute Qualifiers: Congestive heart failure type: diastolic Qualified Code(s): I50.33 - Acute on chronic diastolic (congestive) heart failure - Constitutional Vitals: Temp Pulse Resp BP Pulse Ox 97.7 F 84 14 124/54 97 04/13/17 15:33 04/13/17 15:33 04/13/17 15:33 04/13/17 15:33 04/13/17 15:33 Internal Medicine: Result - Labs CBC & Chem 7: 04/13/17 11:57 04/12/17 05:35 Labs: Short CBC 04/13/17 Range/Units 11:57 WBC 9.5 (4.3-11.1) K/mcL Hgb 11.8 (11.5-15.4) g/dL Hct 37.6 (35.3-44.9) % Plt Count 218 (140-400) K/mcL Neutrophils # 8.5 (1.6-8.9) K/mcL - ABG Interpretation ABG results: PT/INR, D-dimer PT 17.0 Seconds (9.4-12.1) H 04/13/17 05:26 - Attending Attestation I examined this patient and my medical decision-making was reviewed with the Resident Physician on 04/13/17. I agree with the documented findings, disposition and treatment plan as described except to the extent set forth below. Ms Smith is currently admitted for rapid a fib and possible UTI. She remains moderate to high risk due to potential for worsening clinical status. Ms Smith is doing a little better. Her heart rate has been fast. Meds have been adjusted today. No fever or chills. Exam Alert. Comfortable Mucus membranes dry Hear irreg - not tachy Lungs clear I/P 1. A fib 2. UTI Further diagnoses and plan as above Anticipate d/c tomorrow.
[2017-04-13] MEDS: *HR* Warfarin 2.5 MG TABLET PO SCH (17:48)
[2017-04-13] MEDS ORDERED: Insulin DETEMIR 100 UNIT/ML X5UNITS SQ SCH (21:00)
[2017-04-14 03:50] LABS: Hematocrit 34.3 % (35.3-44.9); Hemoglobin 10.9 g/dL (11.5-15.4); Mean Corpuscular HGB Conc 31.8 g/dL (31.6-35.5); Mean Corpuscular Volume 85.1 fL (83.0-100.0); Mean Platelet Volume 11.3 fL (9.4-12.4); Platelet Count 199 K/mcL (140-400); Red Blood Count 4.03 M/mcL (3.82-4.97)
[2017-04-14 03:59] LABS: Prothrombin Time 21.8 Seconds (9.4-12.1)
[2017-04-14 04:25] LABS: Calcium 9.1 mg/dL (8.6-10.3); Potassium 4.2 mEq/L (3.5-5.1)
[2017-04-14] MEDS: Magnesium Oxide 400 MG TABLET PO SCH (07:56)
[2017-04-14] MEDS: Aspirin 81 MG TAB.CHEW PO SCH (07:56)
[2017-04-14] MEDS: Famotidine 20 MG TABLET PO SCH (07:57)
[2017-04-14] MEDS: Furosemide 40 MG TABLET PO SCH (07:57)
[2017-04-14] MEDS: Insulin LISPRO 300 UNITS/3 ML VIAL SQ SCH ×2 (07:59→12:29)
[2017-04-14] MEDS ORDERED: Diltiazem CD (24hr) 180 MG CAPSULE PO SCH (09:00)
[2017-04-14 11:42] VITALS: BP 156/100
[2017-04-14 12:07] LABS: Basophils % 0.1 %; Eosinophils % 0.1 %; Hematocrit 36.7 % (35.3-44.9); Hemoglobin 11.7 g/dL (11.5-15.4); Immature Granulocytes % 0.5 % (0-4); Lymphocytes # 1.1 K/mcL (0.6-4.6); Lymphocytes % 7.9 %; Mean Corpuscular HGB Conc 31.9 g/dL (31.6-35.5); Mean Corpuscular Hemoglobin 27.1 pg (28.0-33.3); Mean Platelet Volume 11.3 fL (9.4-12.4); Monocytes # 1.1 K/mcL (0.0-1.3); Monocytes % 7.5 %; Neutrophils # 12.2 K/mcL (1.6-8.9); Nucleated Red Blood Cells 0.1 /100 WBC (0); Platelet Count 239 K/mcL (140-400); Red Blood Count 4.32 M/mcL (3.82-4.97); Red Cell Distribution Width 15.1 % (11.5-14.5); Segmented Neutrophils % 83.9 %
--- NOTE | 2017-04-14 13:15 | Discharge Summary ---
<BrunoJonatan yeh - Last Filed: 04/14/17 15:19> Date of Encounter: 04/14/17 Time of Encounter: 09:00 - Discharge Diagnosis (1) Atrial fibrillation with rapid ventricular response Priority: Secondary Status: Resolved (2) Bradycardia Priority: Secondary Status: Resolved (3) Hypoglycemia Priority: Primary Status: Resolved (4) Allergic reaction caused by a drug Priority: Secondary Status: Resolved Qualifiers: Encounter type: initial encounter Qualified Code(s): T78.40XA - Allergy, unspecified, initial encounter (5) HTN (hypertension) Priority: Secondary Status: Chronic Qualifiers: Hypertension type: essential hypertension Qualified Code(s): I10 - Essential (primary) hypertension (6) Hypothyroid Priority: Secondary Status: Chronic Qualifiers: Hypothyroidism type: acquired Qualified Code(s): E03.9 - Hypothyroidism, unspecified (7) Anticoagulated on Coumadin Priority: Secondary Status: Chronic (8) Chest pain Priority: Secondary Status: Resolved Qualifiers: Chest pain type: unspecified Qualified Code(s): R07.9 - Chest pain, unspecified (9) Diabetes type 2, controlled Priority: Secondary Status: Chronic Qualifiers: Diabetes mellitus complication status: with unspecified complications Diabetes mellitus shelter insulin use: unspecified shelter insulin use status Qualified Code(s): E11.8 - Type 2 diabetes mellitus with unspecified complications (10) DVT prophylaxis Priority: Secondary Status: Acute - Discharge Medications Prescriptions: Carvedilol [Coreg] 37.5 mg PO BIDWM #60 tablet Sulfamethoxazole/Trimeth SS [Bactrim SS] 1 each PO BID #10 tablet Home Medications: Atorvastatin [Lipitor] 40 mg PO HS 05/03/15 [History] Magnesium Oxide [Magnesium] 400 mg PO QAM 05/03/15 [History] Potassium Chloride [K-Tab ER] 10 meq PO QAM 05/03/15 [History] Aspirin 81 mg PO QAM 07/06/15 [History] Insulin ASPART [Novolog Flexpen] 10 unit SQ TIDWM 07/06/15 [History] Warfarin [Coumadin] 2.5 mg PO SUMOTUWESA 08/24/15 [History] Insulin DETEMIR [Levemir Flextouch] 25 unit SQ HS 04/16/16 [History] Cholecalciferol (Vitamin D3) [Vitamin D3] 50,000 unit PO SA 04/04/17 [History] Levothyroxine Sodium [Levo-T] 200 mcg PO DAILY 04/04/17 [History] Liothyronine Sodium [Cytomel] 5 mcg PO DAILY 04/04/17 [History] Liraglutide [Victoza 2-Elias] 1.2 mg SQ DAILY 04/04/17 [History] Losartan [Cozaar] 50 mg PO BID 04/04/17 [History] Ranitidine HCl [Zantac] 150 mg PO BID 04/04/17 [History] Furosemide [Lasix] 40 mg PO DAILY #30 tablet 04/06/17 [Rx] Carvedilol [Coreg] 37.5 mg PO BIDWM #60 tablet 04/14/17 [Rx] Sulfamethoxazole/Trimeth SS [Bactrim SS] 1 each PO BID #10 tablet 04/14/17 [Rx] Allergies/Adverse Reactions: 3 Allergy/AdvReac Type Severity Reaction Status Date / Time ceftriaxone [From Rocephin] Allergy Anaphylaxis Verified 04/13/17 13:06 levofloxacin [From Levaquin] Allergy Swelling Verified 04/13/17 10:28 of the Eye nitroglycerin AdvReac Nausea Verified 04/11/17 11:30 Date of admission: 04/08/17 23:21 Primary care physician: Blaire Olivo Consults: 04/08/17 23:37 Consult to Cardiology [CONS] Routine Comment: Consulting Provider: [facility] [place] Reason for Consult: bradycardia. hx of Afib Call Completed: No 04/11/17 11:35 Consult to Lock Setter [CONS] Routine Reason for SW Consult: Poor home envronment/concerns for patient safety Discharging clinician: Jonatan Ashraf Anticipated date of discharge: 04/14/17 - Patient Status Disposition: Home, Self-Care Condition: Good Functional capacity at discharge: independent ambulation Overall status at discharge: patient is progressing back to baseline - Ambulatory Orders Ambulatory Orders: Complete Blood Count [HEME] Time Frame: 04/18/17, Facility: [facility], Location: Lab - Discharge Instructions Follow Up With: Blaire Olivo, MARY [Primary Care Provider] - 04/20/17 10:30 am Additional Instructions: Please follow up with her primary care physician within one week. Patient to take all medication as prescribed including Bactrim twice a day for 5 days. Refer to only take half of a pill of Coumadin each day until your visit to Coumadin clinic on Tuesday. Also please get your labs drawn on Tuesday to check for your infectious cell count. - Diet and Activity Activity: increase activity as tolerated, resume usual activities as tolerated Diet: diabetic diet Hospital course: Ms. Smith is a 76 year old female presented to the emergency department after she was found unresponsive by her daughter. Her daughter checked her blood sugar and was found to have a blood sugar of 28 and her heart rate was down to 38 which responded to atropine in the emergency department. She is a past medical history of insulin-dependent diabetes mellitus, hypothyroid, atrial fibrillation, congestive heart failure. Patient was notably presented to outside facility and was then transferred to [facility] once stabilized. On presentation to this ER, vital signs were within normal limits. Labs were significant for elevated BUN over creatinine of 31/.21. Patient was treated for possible urinary tract infection with Rocephin during course of stay where she is currently developed facial edema evolving bilateral eyes but without respiratory compromise. Rocephin was then stopped and she was treated with IV steroids and Benadryl. Her swelling is now resolved and she is a significant factor this time. She also went into atrial fibrillation with rapid ventricular response during this stay she was treated with Coreg after cardiac consultation. During day of discharge, patient was asymptomatic and heart rate was well-controlled. She states that she is no longer extrinsic symptoms of urgency however her white blood cell count was mildly elevated at 14.5 and she will be sent home with a course of antibiotics. She was instructed that she should follow-up and received a CBC at lab on Tuesday to monitor for her white blood cell count. She was also instructed to cut her dose of Coumadin in half until she follows up with her Coumadin clinic on Tuesday as she will be sent home with Bactrim which can increase her INR. Labs back to baseline levels. She is medically stable for discharge at this time was discharged to follow up with her primary care physician within one week. - Time Spent with Patient Total time spent providing and/or coordinating discharge services: - Constitutional Vitals: Temp Pulse Resp BP Pulse Ox 98.9 F 67 16 156/100 98 04/14/17 11:40 04/14/17 11:40 04/14/17 11:40 04/14/17 11:40 04/14/17 11:40 General appearance: Present: cooperative, A&O X 3, pleasant, no acute distress, answers questions appropriately Exam: Gen.: Vitals noted. No acute distress. AAOx3 HEENT: PERRL/EOMI, oropharynx clear, Normocephalic, atraumatic Cardiac: Irregularly irregular rhythm, normal rate, no murmur, +S1/S2 Pulmonary: CTA bilaterally, no wheezes, rales or rhonchi, equal chest expansion Abdomen: soft, nontender, BS noted, no guarding MSK: ROM intact, no joint swelling noted Extremities: no BLE edema, nontender calf, no cyanosis or clubbing Neuro: A&Ox3, moves all extremities, no focal deficits Psych: Appropriate mood and behavior <Jeronimo Hardin - Last Filed: 04/14/17 19:36> Date of Encounter: 04/14/17 - Discharge Diagnosis (1) Atrial fibrillation Priority: Primary Status: Chronic Qualifiers: Atrial fibrillation type: persistent Qualified Code(s): I48.1 - Persistent atrial fibrillation (2) Hypothyroidism Priority: Secondary Status: Chronic Qualifiers: Hypothyroidism type: acquired Qualified Code(s): E03.9 - Hypothyroidism, unspecified (3) HLD (hyperlipidemia) Priority: Secondary Status: Chronic Qualifiers: Hyperlipidemia type: mixed hyperlipidemia Qualified Code(s): E78.2 - Mixed hyperlipidemia (4) Hypertension Priority: Secondary Status: Chronic Qualifiers: Hypertension type: essential hypertension Qualified Code(s): I10 - Essential (primary) hypertension (5) Acute exacerbation of CHF (congestive heart failure) Priority: Secondary Status: Resolved Qualifiers: Congestive heart failure type: diastolic Qualified Code(s): I50.33 - Acute on chronic diastolic (congestive) heart failure (6) UTI (urinary tract infection) Priority: Secondary Status: Acute Comments: Bactrim SS BID Qualifiers: Urinary tract infection type: acute cystitis Hematuria presence: without hematuria Qualified Code(s): N30.00 - Acute cystitis without hematuria - Notes to Outpatient Provider Pt has urine culture pending. She was sent home on Bactrim SS. She had slight bump in her WBC today. She is to have CBC and INR on Tuesday. Date of admission: 04/08/17 23:21 Primary care physician: Blaire Olivo Consults: 04/08/17 23:37 Consult to Cardiology [CONS] Routine Comment: Consulting Provider: Card[facility] [place] Reason for Consult: bradycardia. hx of Afib Call Completed: No 04/11/17 11:35 Consult to Lock Setter [CONS] Routine Reason for SW Consult: Poor home envronment/concerns for patient safety Hospital course: Ms. Smith is a 76 year old female - Time Spent with Patient Total time spent providing and/or coordinating discharge services: 37min - Constitutional Vitals: Temp Pulse Resp BP Pulse Ox 98.9 F 67 16 156/100 98 04/14/17 11:40 04/14/17 11:40 04/14/17 11:40 04/14/17 11:40 04/14/17 11:40 - Attending Attestation I examined this patient and my medical decision-making was reviewed with the Resident Physician on 04/14/17. I agree with the documented findings, disposition and treatment plan as described except to the extent set forth below. Ms Smith has been admitted for a fib. She is now afebrile and feels at baseline. WBC somewhat elevated today. Recent urine cx grew Proteus. Repeat cx pending. Exam Alert> Comfortable Mucus membranes dry Heart reg No wheeze Abd soft Plan D/C home Bactrim for presumptive persistent UTI Monitor INR on Bactrim Recheck WBC Tuesday Follow up with PCP.
[2017-04-14] MEDS ORDERED: Sulfamethoxazole/Trimeth SS 1 TAB PO SCH (15:00)
--- NOTE | 2017-04-14 15:19 | Physician Discharge Referral ---
Home Health/Hosp Referral Info Transfer to: Home Health Provider in Charge Post Discharge: PCP - Diagnosis (1) Atrial fibrillation with rapid ventricular response Priority: Secondary Status: Resolved (2) Bradycardia Priority: Secondary Status: Resolved (3) Hypoglycemia Priority: Primary Status: Resolved (4) Allergic reaction caused by a drug Priority: Secondary Status: Resolved (5) HTN (hypertension) Priority: Secondary Status: Chronic (6) Hypothyroid Priority: Secondary Status: Acute (7) Anticoagulated on Coumadin Priority: Secondary Status: Chronic (8) Chest pain Priority: Secondary Status: Resolved (9) Diabetes type 2, controlled Priority: Secondary Status: Chronic (10) DVT prophylaxis Priority: Secondary Status: Acute - Respiratory Orders Smoking Cessation: Smoking cessation has been advised. For more information, call the [employer] Quit Line at [phone]. - Diet/Nutrition Diet/Nutrition Orders: Cardiac - Activity Activity Orders: Up ad alyx - Services Needed Following services are medically necessary services: Home Health Aide - Transfer Medications Prescriptions: Carvedilol [Coreg] 37.5 mg PO BIDWM #60 tablet Sulfamethoxazole/Trimeth SS [Bactrim SS] 1 each PO BID #10 tablet Home Medications: Atorvastatin [Lipitor] 40 mg PO HS 05/03/15 [History] Magnesium Oxide [Magnesium] 400 mg PO QAM 05/03/15 [History] Potassium Chloride [K-Tab ER] 10 meq PO QAM 05/03/15 [History] Aspirin 81 mg PO QAM 07/06/15 [History] Insulin ASPART [Novolog Flexpen] 10 unit SQ TIDWM 07/06/15 [History] Warfarin [Coumadin] 2.5 mg PO SUMOTUWESA 08/24/15 [History] Insulin DETEMIR [Levemir Flextouch] 25 unit SQ HS 04/16/16 [History] Cholecalciferol (Vitamin D3) [Vitamin D3] 50,000 unit PO SA 04/04/17 [History] Levothyroxine Sodium [Levo-T] 200 mcg PO DAILY 04/04/17 [History] Liothyronine Sodium [Cytomel] 5 mcg PO DAILY 04/04/17 [History] Liraglutide [Victoza 2-Elias] 1.2 mg SQ DAILY 04/04/17 [History] Losartan [Cozaar] 50 mg PO BID 04/04/17 [History] Ranitidine HCl [Zantac] 150 mg PO BID 04/04/17 [History] Furosemide [Lasix] 40 mg PO DAILY #30 tablet 04/06/17 [Rx] Carvedilol [Coreg] 37.5 mg PO BIDWM #60 tablet 04/14/17 [Rx] Sulfamethoxazole/Trimeth SS [Bactrim SS] 1 each PO BID #10 tablet 04/14/17 [Rx] Allergies/Adverse Reactions: 3 Allergy/AdvReac Type Severity Reaction Status Date / Time ceftriaxone [From Rocephin] Allergy Anaphylaxis Verified 04/13/17 13:06 levofloxacin [From Levaquin] Allergy Swelling Verified 04/13/17 10:28 of the Eye nitroglycerin AdvReac Nausea Verified 04/11/17 11:30 Certification: Further, I certify that my clinical findings support that this patient is homebound (i.e. absences from home require considerable and taxing effort and are for medical reasons or latter-day services or infrequently or short duration when for other reasons) because: Homebound Reason: Leaving home requires considerable and taxing effort due to condition Attestation: My signature below is to certify that this patient is under my care and that I, or nurse practitioner, or a physician's talent assistant working with me, has a face-to -face encounter with this patient.
[2017-04-14] MEDS ORDERED: *HR* Warfarin 2.5 MG TABLET PO SCH (18:00)
== END 2017-04-14 16:37 | disposition home or self-care (01) | DRG 308 ==
LOC: EMEROO 17:31 → 2NENU 17:31 → SUATTDRO 23:21
PROVIDERS: ADMIT Internal Medicine; ATTEND Internal Medicine